=== PATIENT | female | born 1960 | race Caucasian/White ===

== ENCOUNTER → 2016-10-26 | Outpatient (CLI) | payer OTHER ==
--- NOTE | 2016-10-27 14:21 | MM ---
Reason for exam: screening (asymptomatic). Last mammogram was performed 1 year ago. History: Patient is postmenopausal. Family history of breast cancer in aunt and breast cancer in cousin. Took hormonal contraceptives for 2 years beginning at age 20. Physical Findings: A clinical breast exam by your physician is recommended on an annual basis and results should be correlated with mammographic findings. MG Screening Mammo w CAD Bilateral CC and MLO view(s) were taken. Prior study comparison: October 24, 2015, bilateral MG screening mammo w CAD. September 28, 2014, bilateral MG diagnostic mammo w CAD [place]. July 11, 2013, bilateral digital screening mammo w/CAD. January 18, 2012, bilateral digital screening mammo w/CAD. January 06, 2011, bilateral digital screening mammo w/CAD. The breast tissue is heterogeneously dense. This may lower the sensitivity of mammography. There is chronic nodularity in the left breast. No significant changes when compared with prior studies. ASSESSMENT: Negative, BI-RAD 1 RECOMMENDATION: Routine screening mammogram of both breasts in 1 year. Manage patient on a clinical basis with regard to medial right breast pain.
== END | disposition home or self-care (01) ==
LOC: RADMAMWWP 16:14
PROVIDERS: ATTEND Family Medicine
DX: Z12.31 Encounter for screening mammogram for malignant neoplasm of breast (principal)

== ENCOUNTER → 2018-08-26 | Outpatient (CLI) | payer OTHER ==
--- NOTE | 2018-08-29 09:19 | MM ---
Reason for exam: screening (asymptomatic). Last mammogram was performed 1 year and 10 months ago. History: Patient is postmenopausal. Family history of breast cancer in aunt and breast cancer in cousin. Took hormonal contraceptives for 2 years beginning at age 20. Physical Findings: A clinical breast exam by your physician is recommended on an annual basis and results should be correlated with mammographic findings. MG 3D Screening Mammo W/Cad Bilateral CC and MLO view(s) were taken. XCCL view(s) were taken of the left breast. Prior study comparison: October 26, 2016, bilateral MG screening mammo w CAD. October 24, 2015, bilateral MG screening mammo w CAD. The breast tissue is heterogeneously dense. This may lower the sensitivity of mammography. There is chronic nodularity bilaterally. There is no discrete abnormality. ASSESSMENT: Benign, BI-RAD 2 RECOMMENDATION: Routine screening mammogram of both breasts in 1 year.
== END | disposition home or self-care (01) ==
LOC: RADMAMWWP 10:07
PROVIDERS: ATTEND Family Medicine
DX: Z12.31 Encounter for screening mammogram for malignant neoplasm of breast (principal)
CPT/HCPCS: 77063; 77067

== ENCOUNTER → 2019-12-15 | Outpatient (CLI) | payer BC ==
--- NOTE | 2019-12-18 11:25 | MM ---
Reason for exam: screening (asymptomatic). Last mammogram was performed 1 year and 4 months ago. History: Patient is postmenopausal. Family history of breast cancer in aunt and breast cancer in cousin. Took hormonal contraceptives for 2 years beginning at age 20. Physical Findings: A clinical breast exam by your physician is recommended on an annual basis and results should be correlated with mammographic findings. MG 3D Screening Mammo W/Cad Bilateral CC and MLO view(s) were taken. XCCL view(s) were taken of the left breast. Prior study comparison: August 26, 2018, bilateral MG 3d screening mammo w/cad. October 26, 2016, bilateral MG screening mammo w CAD. The breast tissue is heterogeneously dense. This may lower the sensitivity of mammography. There is chronic nodularity in the left breast. No significant changes when compared with prior studies. ASSESSMENT: Negative, BI-RAD 1 RECOMMENDATION: Routine screening mammogram of both breasts in 1 year.
== END | disposition home or self-care (01) ==
LOC: RADMAMWWP 12:33
PROVIDERS: ATTEND Family Medicine
DX: Z12.31 Encounter for screening mammogram for malignant neoplasm of breast (principal)
CPT/HCPCS: 77063; 77067

== ENCOUNTER 2020-10-19 19:34 | Emergency (ER) | payer BC ==
[2020-10-19] MEDS ORDERED: SODIUM CHLORIDE 0.9% 1,000 ML IV STA ×2 (19:52→21:09)
[2020-10-19] MEDS ORDERED: ALBUTEROL HFA INHALER INHALATION STA (19:52)
--- NOTE | 2020-10-19 19:56 | ED ---
SOB HPI - General Chief Complaint: Shortness of Breath Stated Complaint: COVID+, SOB Time Seen by Provider: 10/19/20 19:37 Source: patient, RN notes reviewed Mode of arrival: wheelchair Limitations: no limitations - History of Present Illness Initial Comments: This is a 60-year-old female with a history of being diagnosed with COVID-19 of October 15 of this year. She states she had the first Moderna shot on the . She presents complains of shortness of breath cough fever decreased oral intake exertional dyspnea. Some dizziness. No nausea vomiting or diarrhea. She also has some burning in her ear she states. No other current complaints no other modifying factors she does have an inhaler she uses at home which is not helping MD Complaint: shortness of breath, cough - Related Data Home Medications Medication Instructions Recorded Confirmed Simvastatin [Zocor] 20 mg PO HS 03/16/14 10/19/20 Aspirin 81 mg PO DAILY 04/08/15 10/19/20 Ergocalciferol [Vitamin D2] 50,000 unit PO SUWE 04/08/15 10/19/20 ARIPiprazole [Abilify] 2 mg PO HS 10/19/20 10/19/20 Albuterol Sulfate [Ventolin HFA] 2 puff INHALATION RT-Q4H PRN 10/19/20 10/19/20 Cetirizine HCl 10 mg PO DAILY 10/19/20 10/19/20 FLUoxetine HCL 40 mg PO DAILY 10/19/20 10/19/20 Multivitamins, Thera [Multivitamin 1 tab PO DAILY 10/19/20 10/19/20 (formulary)] buPROPion XL [Wellbutrin Xl] 300 mg PO DAILY 10/19/20 10/19/20 predniSONE See Taper PO BID 10/19/20 10/19/20 Previous Rx's Medication Instructions Recorded Azithromycin [Zithromax Z-pack (6 250 mg PO DIRECTED 5 Days #6 tab 10/19/20 tabs)] Dexamethasone [Decadron] 6 mg PO DAILY #5 tablet 10/19/20 Allergies Allergy/AdvReac Type Severity Reaction Status Date / Time No Known Allergies Allergy Verified 10/19/20 20:26 Review of Systems ROS Statement: Those systems with pertinent positive or pertinent negative responses have been documented in the HPI. ROS Other: All systems not noted in ROS Statement are negative. Past Medical History Past Medical History: Chest Pain / Angina, Hyperlipidemia, Hypertension, Skin Disorder Additional Past Medical History / Comment(s): Alopecia. PSORIASIS. EPISODE OF DIZZYNESS, SHORTNESS OF BREATH, CHEST PRESSURE, NAUSEA 02/2015 - ADM TO [facility] FOR [facility]HAB MED[facility]. Covid 10/09 History of Any Multi-Drug Resistant Organisms: None Reported Past Surgical History: Hysterectomy, Orthopedic Surgery Additional Past Surgical History / Comment(s): SX TO REPAIR HIATAL HERNIA. LT LEG SX R/T SEVERE CUT. RT HAND GANGLION CYST EXC. Past Anesthesia/Blood Transfusion Reactions: No Reported Reaction Past Psychological History: Depression Smoking Status: Never smoker Past Alcohol Use History: Rare Past Drug Use History: None Reported - Past Family History Brother(s) Family Medical History: Cancer General Exam - General Exam Comments Initial Comments: This is a well-developed well-nourished awake alert oriented 3 female Limitations: no limitations General appearance: alert, anxious Head exam: Present: atraumatic, normocephalic, normal inspection Eye exam: Present: normal appearance, PERRL, EOMI. Absent: scleral icterus, conjunctival injection, periorbital swelling ENT exam: Present: mucous membranes dry Neck exam: Present: normal inspection, full ROM, other. Absent: tenderness, meningismus, lymphadenopathy Respiratory exam: Present: decreased breath sounds. Absent: respiratory distress, wheezes, rales, rhonchi, stridor Cardiovascular Exam: Present: normal rhythm, tachycardia (No surgery or bruits), normal heart sounds. Absent: systolic murmur, diastolic murmur, rubs, gallop, clicks GI/Abdominal exam: Present: soft, normal bowel sounds. Absent: distended, tenderness, guarding, rebound, rigid Extremities exam: Present: normal inspection, full ROM, normal capillary refill. Absent: tenderness, pedal edema, joint swelling, calf tenderness Back exam: Present: normal inspection Neurological exam: Present: alert, oriented X3, CN II-XII intact Psychiatric exam: Present: normal affect, normal mood Skin exam: Present: warm, dry, intact, normal color. Absent: rash Course Vital Signs 10/19/20 10/19/20 10/19/20 19:36 20:13 21:08 Temperature 99.9 F H Pulse Rate 114 H 102 H 104 H Respiratory 24 18 19 Rate Blood Pressure 133/85 139/88 O2 Sat by Pulse 92 L 94 L 94 L Oximetry Medical Decision Making - Medical Decision Making I did a long discussion with patient regarding the findings patient is covered positive she had a positive test done at Dr. Camp's office on the that her primary care doctor. The patient is maintaining her oxygenation is breathing better after the inhaler. We did discuss the antibibody infusion for COVID-19 and does meet the criteria for administration. She is agreed to do this she'll receive the infusion images started on appropriate medication. - Lab Data Result diagrams: 10/19/20 20:06 10/19/20 20:06 Lab Results 10/19/20 10/19/20 10/19/20 Range/Units 20:06 20:06 20:06 WBC 13.8 H (3.8-10.6) k/uL RBC 4.81 (3.80-5.40) m/uL Hgb 14.9 (11.4-16.0) gm/dL Hct 44.9 (34.0-46.0) % MCV 93.4 (80.0-100.0) fL MCH 30.9 (25.0-35.0) pg MCHC 33.1 (31.0-37.0) g/dL RDW 13.1 (11.5-15.5) % Plt Count 228 (150-450) k/uL MPV 8.0 Neutrophils % 85 % Lymphocytes % 9 % Monocytes % 4 % Eosinophils % 1 % Basophils % 1 % Neutrophils # 11.7 H (1.3-7.7) k/uL Lymphocytes # 1.2 (1.0-4.8) k/uL Monocytes # 0.5 (0-1.0) k/uL Eosinophils # 0.2 (0-0.7) k/uL Basophils # 0.1 (0-0.2) k/uL PT 10.4 (9.0-12.0) sec INR 1.0 (<1.2) APTT 21.6 L (22.0-30.0) sec D-Dimer 1.56 H (<0.60) mg/L FEU Sodium 134 L (137-145) mmol/L Potassium 4.3 (3.5-5.1) mmol/L Chloride 100 (98-107) mmol/L Carbon Dioxide 22 (22-30) mmol/L Anion Gap 12 mmol/L BUN 21 H (7-17) mg/dL Creatinine 1.29 H (0.52-1.04) mg/dL Est GFR (CKD-EPI)AfAm 53 (>60 ml/min/1.73 sqM) Est GFR (CKD-EPI)NonAf 46 (>60 ml/min/1.73 sqM) Glucose 153 H (74-99) mg/dL Plasma Lactic Acid Thiago (0.7-2.0) mmol/L Calcium 9.7 (8.4-10.2) mg/dL Magnesium 1.9 (1.6-2.3) mg/dL Total Bilirubin 0.5 (0.2-1.3) mg/dL AST 41 H (14-36) U/L ALT 29 (4-34) U/L Alkaline Phosphatase 123 (38-126) U/L Creatine Kinase 111 (30-135) U/L Troponin I (0.000-0.034) ng/mL NT-Pro-B Natriuret Pep pg/mL Total Protein 7.6 (6.3-8.2) g/dL Albumin 4.3 (3.5-5.0) g/dL 10/19/20 10/19/20 10/19/20 Range/Units 20:06 20:06 20:06 WBC (3.8-10.6) k/uL RBC (3.80-5.40) m/uL Hgb (11.4-16.0) gm/dL Hct (34.0-46.0) % MCV (80.0-100.0) fL MCH (25.0-35.0) pg MCHC (31.0-37.0) g/dL RDW (11.5-15.5) % Plt Count (150-450) k/uL MPV Neutrophils % % Lymphocytes % % Monocytes % % Eosinophils % % Basophils % % Neutrophils # (1.3-7.7) k/uL Lymphocytes # (1.0-4.8) k/uL Monocytes # (0-1.0) k/uL Eosinophils # (0-0.7) k/uL Basophils # (0-0.2) k/uL PT (9.0-12.0) sec INR (<1.2) APTT (22.0-30.0) sec D-Dimer (<0.60) mg/L FEU Sodium (137-145) mmol/L Potassium (3.5-5.1) mmol/L Chloride (98-107) mmol/L Carbon Dioxide (22-30) mmol/L Anion Gap mmol/L BUN (7-17) mg/dL Creatinine (0.52-1.04) mg/dL Est GFR (CKD-EPI)AfAm (>60 ml/min/1.73 sqM) Est GFR (CKD-EPI)NonAf (>60 ml/min/1.73 sqM) Glucose (74-99) mg/dL Plasma Lactic Acid Thiago 1.6 (0.7-2.0) mmol/L Calcium (8.4-10.2) mg/dL Magnesium (1.6-2.3) mg/dL Total Bilirubin (0.2-1.3) mg/dL AST (14-36) U/L ALT (4-34) U/L Alkaline Phosphatase (38-126) U/L Creatine Kinase (30-135) U/L Troponin I <0.012 (0.000-0.034) ng/mL NT-Pro-B Natriuret Pep 108 pg/mL Total Protein (6.3-8.2) g/dL Albumin (3.5-5.0) g/dL - EKG Data -: EKG Interpreted by Ca EKG shows normal: sinus rhythm EKG Comments: Sinus tachycardia rate 108. Interval 1:30 QRS duration 82 QT since QTC 360/423 nonspecific anterior configuration - Radiology Data Radiology results: report reviewed (Image reviewed no evidence of PE there is evidence of bilateral infiltrates consistent with bilateral pneumonia.), image reviewed Disposition Clinical Impression: Pneumonia due to COVID-19 virus, Febrile illness, acute, Dehydration, Bronchospasm Disposition: HOME SELF-CARE Condition: Good Instructions (If sedation given, give patient instructions): Viral Pneumonia (ED), Viral Syndrome (ED), Bronchospasm (ED) Additional Instructions: Using albuterol inhaler 2 puffs 4 times a day as needed Prescriptions: Dexamethasone [Decadron] 6 mg PO DAILY #5 tablet Azithromycin [Zithromax Z-pack (6 tabs)] 250 mg PO DIRECTED 5 Days #6 tab Is patient prescribed a controlled substance at d/c from ED?: No Referrals: Piedad Camp DO [Primary Care Provider] - 1-2 days
[2020-10-19 20:19] LABS: Basophils # (A) 0.1 k/uL (0-0.2); Basophils % (A) 1 %; Eosinophils # (A) 0.2 k/uL (0-0.7); Eosinophils % (A) 1 %; HCT 44.9 % (34.0-46.0); HGB 14.9 gm/dL (11.4-16.0); Lymphocytes # (A) 1.2 k/uL (1.0-4.8); Lymphocytes % (A) 9 %; MCH 30.9 pg (25.0-35.0); MCHC 33.1 g/dL (31.0-37.0); MCV 93.4 fL (80.0-100.0); Monocytes # (A) 0.5 k/uL (0-1.0); Monocytes % (A) 4 %; Neutrophils # (A) 11.7 k/uL (1.3-7.7); Neutrophils % (A) 85 %; Platelet Count 228 k/uL (150-450); RBC 4.81 m/uL (3.80-5.40); RDW 13.1 % (11.5-15.5); WBC 13.8 k/uL (3.8-10.6)
[2020-10-19 20:28] LABS: Albumin 4.3 g/dL (3.5-5.0); Calcium 9.7 mg/dL (8.4-10.2); Magnesium 1.9 mg/dL (1.6-2.3); Potassium 4.3 mmol/L (3.5-5.1); Total Bilirubin 0.5 mg/dL (0.2-1.3); Total Protein 7.6 g/dL (6.3-8.2)
--- NOTE | 2020-10-19 20:41 | XR ---
EXAMINATION TYPE: XR chest 2V DATE OF EXAM: 10/19/2020 COMPARISON: NONE HISTORY: Short of breath TECHNIQUE: 3 views FINDINGS: There is 5 cm area of airspace consolidation in the lateral aspect left lower lobe adjacent to the chest wall. There is 3 cm infiltrate in the lateral right upper lobe. There is no heart failu re. There is 3 cm area of consolidation in the right middle lobe close to the right cardiac border. H eart size is normal. There is no heart failure. There is slight elevated left diaphragm. IMPRESSION: Bilateral patches of airspace consolidation consistent with multifocal pneumonia. Normal heart.
[2020-10-19 20:44] LABS: Prothrombin Time 10.4 sec (9.0-12.0)
[2020-10-19 21:07] LABS: D-Dimer 1.56 mg/L FEU (<0.60)
[2020-10-19 21:08] LABS: Partial Thromboplastin Time 21.6 sec (22.0-30.0)
--- NOTE | 2020-10-19 21:38 | CT ---
EXAMINATION TYPE: CT angio chest DATE OF EXAM: 10/19/2020 COMPARISON: None HISTORY: Elevated d-dimer, +covid. CT DLP: 477 mGycm Automated exposure control for dose reduction was used. CONTRAST: Performed with IV Contrast, patient injected with 54ml mL of Isovue 370. There are 3-D post processed images. There is 3 cm patch of airspace infiltrate in the right upper lobe. There is poorly marginated 3 cm i nfiltrate in the left upper lobe adjacent to the mediastinum. There is 6 x 3 cm area of airspace cons olidation in the lateral aspect of the left upper lobe adjacent to the chest wall. There is airspace consolidation in the right lower lobe right paraspinal region. There is some patchy airspace consolid ation in the right middle lobe measuring up to 3 cm. There are smaller patches of airspace infiltrate at the posterior lung bases. There is no pleural effusion. Heart size is normal. There is no pericar dial effusion. There are a few bronchial lymph nodes up to 1 cm. Thoracic aorta is intact. There is no aneurysm. There is no dissection. There is normal contrast opacification of the pulmonary arteries. There are no filling defects. There is some spurring in the thoracic spine. I see no compression fracture. Upper abdominal soft tis sues appear intact. There is some fatty infiltration of the liver. IMPRESSION: No evidence of pulmonary embolism. Multifocal bilateral patchy pneumonia. Fatty infiltration of the liver.
[2020-10-19] MEDS ORDERED: AZITHROMYCIN 500 MG TAB PO STA (22:08)
[2020-10-19] MEDS ORDERED: dexAMETHasone 2 MG TAB PO STA (22:08)
[2020-10-19] MEDS ORDERED: SODIUM CHLORIDE 0.9% 50 ML IVPB ONE (22:15)
[2020-10-19] MEDS ORDERED: BAMLANIVIMAB (EUA) 700 MG, ETESEVIMAB (EUA) 1,400 MG in SODIUM CHLORIDE 0.9% 50 ML IVPB ONE (22:30)
[2020-10-19] MEDS ORDERED: ACETAMINOPHEN TAB 500 MG TAB PO STA (22:39)
[2020-10-20 00:29] VITALS: BP 113/61; PULSE 101; RESP 20; TEMP 99.2
== END 2020-10-20 00:20 | disposition home or self-care (01) ==
LOC: EC 19:34
DX: U07.1 COVID-19 (principal); J12.82 Pneumonia due to coronavirus disease 2019; E86.0 Dehydration; J98.01 Acute bronchospasm; E78.5 Hyperlipidemia, unspecified; I10 Essential (primary) hypertension; K76.0 Fatty (change of) liver, not elsewhere classified; Z79.52 Long term (current) use of systemic steroids; Z79.82 Long term (current) use of aspirin; Z79.899 Other long term (current) drug therapy
CPT/HCPCS: 36415; 94640; 93005; 85379; 83880; 80053; 82550; 83605; 83735; 84484; 85025; 85610; 85730; 87040; 71046; 71275; 99285; 96360; 96361; J8540; Q9967; Q0245

== ENCOUNTER → 2021-08-19 | Outpatient (CLI) | payer BC ==
--- NOTE | 2021-08-20 09:23 | MM ---
Reason for exam: screening (asymptomatic). Last mammogram was performed 1 year and 8 months ago. History: Patient is postmenopausal. Family history of breast cancer in aunt and breast cancer in cousin. Took hormonal contraceptives for 2 years beginning at age 20. Physical Findings: A clinical breast exam by your physician is recommended on an annual basis and results should be correlated with mammographic findings. MG 3D Screening Mammo W/Cad Bilateral CC and MLO view(s) were taken. Prior study comparison: December 15, 2019, bilateral MG 3d screening mammo w/cad. August 26, 2018, bilateral MG 3d screening mammo w/cad. The breast tissue is heterogeneously dense. This may lower the sensitivity of mammography. There is chronic nodularity in the left breast. No significant changes when compared with prior studies. ASSESSMENT: Benign, BI-RAD 2 RECOMMENDATION: Routine screening mammogram of both breasts in 1 year.
== END | disposition home or self-care (01) ==
LOC: RADMAMWWP 10:11
PROVIDERS: ATTEND Family Medicine
DX: Z12.31 Encounter for screening mammogram for malignant neoplasm of breast (principal); Z78.0 Asymptomatic menopausal state; Z80.3 Family history of malignant neoplasm of breast
CPT/HCPCS: 77063; 77067

== ENCOUNTER → 2021-10-28 | Outpatient (CLI) | payer BC ==
[2021-10-28 14:23] LABS: HCT 41.4 % (37.2-46.3); MCH 30.6 pg (27.0-32.0); MCHC 31.4 g/dL (32.0-37.0); MCV 97.4 fL (80.0-97.0); Mean Platelet Volume 10.7 fL (9.5-12.2); NRBC Per 100 WBC 0 /100 WBCS (0.0-0.0); Platelet Count 293 X 10*3/uL (140-440); RBC 4.25 X 10*6/uL (4.10-5.20); RDW 13.2 % (11.5-14.5); WBC 6.66 X 10*3/uL (4.50-10.00)
[2021-10-28 14:38] LABS: ALT 30 U/L (8-44); AST 27 U/L (13-35); African American GFR (CKD) 63.6 (60.0-200.0); Albumin 4.1 g/dL (3.8-4.9); Albumin/Globulin Ratio 1.46 (1.60-3.17); Alkaline Phosphatase 112 U/L (41-126); BUN/Creat Ratio 12.64 Ratio (12.00-20.00); Blood Urea Nitrogen 13.9 mg/dL (9.0-27.0); Calcium 9.4 mg/dL (8.7-10.3); Chloride 106 mmol/L (96-109); Chol/HDL Ratio 2.26 Ratio; Globulin 2.8 g/dL (1.6-3.3); Glucose 97 mg/dL (70-110); LDL Cholesterol,Calculated 68.1 mg/dL (0.0-131.0); Non-African American GFR(CKD) 54.9 (60.0-200.0); Potassium 4.2 mmol/L (3.5-5.5); Rheumatoid Factor, Qnt <10 IU/mL (0-15); Sodium 141 mmol/L (135-145); Total Protein 6.9 g/dL (6.2-8.2)
[2021-10-28 14:50] LABS: Erythrocyte Sedimentation Rate 20 mm/Hr (0-30)
== END | disposition home or self-care (01) ==
LOC: LABWHC1 09:32
PROVIDERS: ATTEND Physician Assistant Medical
DX: F32.9 Major depressive disorder, single episode, unspecified (principal); E78.5 Hyperlipidemia, unspecified; R73.01 Impaired fasting glucose; E66.9 Obesity, unspecified; L63.0 Alopecia (capitis) totalis
CPT/HCPCS: 36415; 80053; 80061; 83036; 84443; 85027; 85652; 86038; 86140; 86431

== ENCOUNTER → 2021-11-18 | Outpatient (CLI) | payer BC ==
--- NOTE | 2021-11-18 12:47 | FL ---
EXAMINATION TYPE: FL barium swallow w video DATE OF EXAM: 11/18/2021 CLINICAL HISTORY: 61-year-old female R1 3.10, dysphagia, persistent fluid sticking in the chest and r eflux. Patient status post hiatal hernia repair 2 years ago. TECHNIQUE: Deglutition study is performed utilizing thin liquid barium, nectar thick liquid barium, barium thick pudding, and barium coated cracker. COMPARISON: None. Total fluoroscopy time: 1 minute 22 seconds. Total images: None. Real-time fluoroscopy support was provided to speech pathology. FINDINGS: The oral and pharyngeal phases show satisfactory initiation and propagation with all modalities teste d. Normal mastication is seen with solid modalities tested. There is no evidence of penetration or aspiration with any modality tested. No significant pharyngeal residue was appreciated. Thin liquid and solid bolus was followed down to the thoracoabdominal junction. No sizable hiatal hernia seen. IMPRESSION: Normal deglutition study. Please refer to speech therapist notes for further details if necessary.
== END | disposition home or self-care (01) ==
LOC: RADFLMAIN 11:23
PROVIDERS: ATTEND Family Medicine
DX: R13.10 Dysphagia, unspecified (principal)
CPT/HCPCS: 74230

== ENCOUNTER → 2021-12-30 | Outpatient (CLI) | payer BC ==
--- NOTE | 2022-01-26 08:06 | P.SLEEP ---
History of Present Illness H&P Date: 12/30/21 This is a 61-year-old female patient who was referred to me for sleep apnea evaluation. The patient had recently a sleep attack where she fell as she was trying to get out of the bed early in the morning. She felt sleepy and drowsy and she fell asleepy , and she also sustained a slight head trauma. Based on that, the patient was referred to me. No seizure activity has been noted. No headaches. No altered mentation. The patient has been very much sleepy over the years and her condition is been progressively getting worse. Note that the patient has history of alopecia and she has been treated with steroids and following that she has gained around 70 pounds and the patient currently has features of chronic steroid use/cushingoid features. At the same time, the patient is having loud snoring, witnessed apneas as reported by the and Excessive fatigue and sleepiness during the day. She is waking up tired during the day. She is going to bed around 10 PM, waking up at 8 AM in the morning. She has no issues in initiating sleep. Her sleep is fragmented and she wakes up at least 3-4 times in the middle of the night. At times she uses the bathroom to urinate. No difficulties in reinitiating sleep. No sleep paralysis. No hallucinations. No cataplexy. She takes a nap at around 2 PM. She drinks 2 cups of coffee in the morning. This will help her stimulated. No symptoms of restlessness and lower extremities. No palpitation. No anxiety. No chest pain. As mentioned, she has chronic issues with alopecia and she has lost her hair. No alcoholism. No substance abuse. Review of Systems Constitutional: Reports daytime sleepiness, Reports fatigue, Reports weight gain Eyes: denies as per HPI, denies blurred vision, denies bulging eye, denies decreased vision, denies diplopia, denies discharge, denies dry eye, denies irritation, denies itching, denies pain, denies photophobia, denies loss of peripheral vision, denies loss of vision, denies tunnel vision/blind spots Ears: deny: decreased hearing, ear discharge, earache, tinnitus Ears, nose, mouth and throat: Reports as per HPI Breasts: absent: as per HPI, change in shape, gynecomastia, masses, nipple discharge, pain, skin changes, swelling Cardiovascular: Reports as per HPI Respiratory: Reports snoring Gastrointestinal: Reports as per HPI Genitourinary: Reports as per HPI Menstruation: Reports as per HPI Musculoskeletal: Reports as per HPI Musculoskeletal: absent: ankle pain, ankle stiffness, ankle swelling Integumentary: Reports as per HPI (Alopecia) Neurological: Reports as per HPI Psychiatric: Reports as per HPI Endocrine: Reports as per HPI, Reports fatigue Hematologic/Lymphatic: Reports as per HPI Allergic/Immunologic: Reports as per HPI Past Medical History Past Medical History: Chest Pain / Angina, Hyperlipidemia, Hypertension, Skin Disorder Additional Past Medical History / Comment(s): Alopecia. PSORIASIS. Obesity, hypertension, hyperlipidemia, acid reflux, Covid 19 in September 2020 History of Any Multi-Drug Resistant Organisms: None Reported Past Surgical History: Hysterectomy, Orthopedic Surgery Additional Past Surgical History / Comment(s): SX TO REPAIR HIATAL HERNIA. LT LEG SX R/T SEVERE CUT. RT HAND GANGLION CYST EXC. Past Anesthesia/Blood Transfusion Reactions: No Reported Reaction Past Psychological History: Depression Smoking Status: Never smoker Past Alcohol Use History: None Reported Past Drug Use History: None Reported - Past Family History Brother(s) Family Medical History: Cancer Medications and Allergies Home Medications Medication Instructions Recorded Confirmed Type Simvastatin [Zocor] 20 mg PO HS 03/16/14 12/31/21 History Aspirin 81 mg PO DAILY 04/08/15 12/31/21 History Ergocalciferol [Vitamin D2 50,000 unit PO SUWE 04/08/15 12/31/21 History (DRISDOL)] ARIPiprazole [Abilify] 2 mg PO HS 10/19/20 12/31/21 History Cetirizine HCl 10 mg PO DAILY 10/19/20 12/31/21 History FLUoxetine HCL 40 mg PO DAILY 10/19/20 12/31/21 History Multivitamins, Thera [Multivitamin 1 tab PO DAILY 10/19/20 12/31/21 History (formulary)] buPROPion XL [Wellbutrin XL] 300 mg PO DAILY 10/19/20 12/31/21 History Omeprazole 20 mg PO 12/29/21 History Allergies Allergy/AdvReac Type Severity Reaction Status Date / Time No Known Allergies Allergy Verified 12/31/21 09:55 Physical Exam BP is 176/84 with a pulse of 75 and a respiration of 18 and the temperature is 97.0 and oxygen saturations 95% on room air oxygen. Weight is 253, neck size is 18 inches and the patient has a Jeff score of 2 and a body mass index of 42. Gen. appearance the patient is obese, comfortable and the patient has cushingoid features. She is also demonstrating signs of alopecia. The patient appeared well nourished and normally developed. Vital signs as documented. Head exam is unremarkable. No scleral icterus or corneal arcus noted. Neck is without jugular venous distension, thyromegaly, or carotid bruits. The patient has a Mallampati class IV. The patient has a slight overbite. Carotid upstrokes are brisk bilaterally. Lungs are clear to auscultation and percussion. Cardiac exam reveals the PMI to be normally sized and situated. Rhythm is regular. First and second heart sounds normal. No murmurs, rubs or gallops. Abdominal exam reveals normal bowel sounds, no masses, no organomegaly and no aortic enlargement. Extremities are nonedematous and both femoral and pedal pulses are normal.Examination of the skin revealed no evidence of significant rashes, suspicious appearing nevi or other concerning lesions.Neurologically, the patient is awake and alert and the patient does not have any focal neurological deficit. Cranial nerves are essentially intact. Assessment and Plan Plan: Chronic hypersomnia with increased likelihood obstructive sleep apnea as the patient has loud snoring, sleep fragmentation, recent weight gain related to steroid use and on examination the patient has significant crowding of the posterior pharynx with a slight overbite. The patient has a Mallampati class IV. The patient accordingly will need further investigation. We'll set up this patient for a home sleep study testing Alopecia, history of chronic steroid use with cushingoid features Obesity with a body mass index of 42.4 Hypertension Hyperlipidemia Acid reflux Chronic anxiety Chronic depression Plan High likelihood for obstructive sleep apnea Proceed with a home sleep study Asked the patient to sleep on her side in the head of the bed elevated Maintain regular sleep schedule Avoid any sleep deprivation Abdomen the sleep hygiene measures We'll contact the patient back with the results of the sleep study and make further recommendations Weight loss is recommended. Sleep Note - Sleep Note Sleep Note: Temperature: Pulse Rate: Respiratory Rate: Blood Pressure: SpO2: Height: 5 ft 5 in Weight: 113.398 kg BMI: 41.5 Neck Circumference:
== END ==
LOC: SLEEP 13:29
PROVIDERS: ATTEND Internal Medicine Critical Care Medicine
DX: G47.10 Hypersomnia, unspecified (principal); L65.9 Nonscarring hair loss, unspecified; E66.9 Obesity, unspecified; Z68.41 Body mass index [BMI] 40.0-44.9, adult; I10 Essential (primary) hypertension; E78.5 Hyperlipidemia, unspecified; K21.9 Gastro-esophageal reflux disease without esophagitis; F32.A Depression, unspecified; F41.9 Anxiety disorder, unspecified
CPT/HCPCS: 99211

== ENCOUNTER 2021-12-31 09:22 | Day surgery (SDC) | payer BC ==
[2021-12-29 08:41] VITALS: BMI 41.5
--- NOTE | 2021-12-30 15:26 | P.SLEEP ---
History of Present Illness H&P Date: 12/30/21 This is a 61-year-old female patient who was referred to me for sleep apnea evaluation. The patient had recently a sleep attack where she fell as she was trying to get out of the bed early in the morning. She felt sleepy and drowsy and she fell asleepy , and she also sustained a slight head trauma. Based on that, the patient was referred to me. No seizure activity has been noted. No headaches. No altered mentation. The patient has been very much sleepy over the years and her condition is been progressively getting worse. Note that the patient has history of alopecia and she has been treated with steroids and following that she has gained around 70 pounds and the patient currently has features of chronic steroid use/cushingoid features. At the same time, the patient is having loud snoring, witnessed apneas as reported by the and Excessive fatigue and sleepiness during the day. She is waking up tired during the day. She is going to bed around 10 PM, waking up at 8 AM in the morning. She has no issues in initiating sleep. Her sleep is fragmented and she wakes up at least 3-4 times in the middle of the night. At times she uses the bathroom to urinate. No difficulties in reinitiating sleep. No sleep paralysis. No hallucinations. No cataplexy. She takes a nap at around 2 PM. She drinks 2 cups of coffee in the morning. This will help her stimulated. No symptoms of restlessness and lower extremities. No palpitation. No anxiety. No chest pain. As mentioned, she has chronic issues with alopecia and she has lost her hair. No alcoholism. No substance abuse. Review of Systems Constitutional: Reports daytime sleepiness, Reports fatigue, Reports weight gain Eyes: denies as per HPI, denies blurred vision, denies bulging eye, denies decreased vision, denies diplopia, denies discharge, denies dry eye, denies irritation, denies itching, denies pain, denies photophobia, denies loss of peripheral vision, denies loss of vision, denies tunnel vision/blind spots Ears: deny: decreased hearing, ear discharge, earache, tinnitus Ears, nose, mouth and throat: Reports as per HPI Breasts: absent: as per HPI, change in shape, gynecomastia, masses, nipple discharge, pain, skin changes, swelling Cardiovascular: Reports as per HPI Respiratory: Reports snoring Gastrointestinal: Reports as per HPI Genitourinary: Reports as per HPI Menstruation: Reports as per HPI Musculoskeletal: Reports as per HPI Musculoskeletal: absent: ankle pain, ankle stiffness, ankle swelling Integumentary: Reports as per HPI (Alopecia) Neurological: Reports as per HPI Psychiatric: Reports as per HPI Endocrine: Reports as per HPI, Reports fatigue Hematologic/Lymphatic: Reports as per HPI Allergic/Immunologic: Reports as per HPI Past Medical History Past Medical History: Chest Pain / Angina, Hyperlipidemia, Hypertension, Skin Disorder Additional Past Medical History / Comment(s): Alopecia. PSORIASIS. Obesity, hypertension, hyperlipidemia, acid reflux, Covid 19 in September 2020 History of Any Multi-Drug Resistant Organisms: None Reported Past Surgical History: Hysterectomy, Orthopedic Surgery Additional Past Surgical History / Comment(s): SX TO REPAIR HIATAL HERNIA. LT LEG SX R/T SEVERE CUT. RT HAND GANGLION CYST EXC. Past Anesthesia/Blood Transfusion Reactions: No Reported Reaction Past Psychological History: Depression Smoking Status: Never smoker Past Alcohol Use History: None Reported Past Drug Use History: None Reported - Past Family History Brother(s) Family Medical History: Cancer Medications and Allergies Home Medications Medication Instructions Recorded Confirmed Type Simvastatin [Zocor] 20 mg PO HS 03/16/14 12/29/21 History Aspirin 81 mg PO DAILY 04/08/15 12/29/21 History Ergocalciferol [Vitamin D2] 50,000 unit PO SUWE 04/08/15 12/29/21 History ARIPiprazole [Abilify] 2 mg PO HS 10/19/20 12/29/21 History Cetirizine HCl 10 mg PO DAILY 10/19/20 12/29/21 History FLUoxetine HCL 40 mg PO DAILY 10/19/20 12/29/21 History Multivitamins, Thera [Multivitamin 1 tab PO DAILY 10/19/20 12/29/21 History (formulary)] buPROPion XL [Wellbutrin Xl] 300 mg PO DAILY 10/19/20 12/29/21 History Omeprazole 20 mg PO 12/29/21 History Allergies Allergy/AdvReac Type Severity Reaction Status Date / Time No Known Allergies Allergy Verified 12/29/21 08:33 Physical Exam BP is 176/84 with a pulse of 75 and a respiration of 18 and the temperature is 97.0 and oxygen saturations 95% on room air oxygen. Weight is 253, neck size is 18 inches and the patient has a [place] score of 2 and a body mass index of 42. Gen. appearance the patient is obese, comfortable and the patient has cushingoid features. She is also demonstrating signs of alopecia. The patient appeared well nourished and normally developed. Vital signs as documented. Head exam is unremarkable. No scleral icterus or corneal arcus noted. Neck is without jugular venous distension, thyromegaly, or carotid bruits. The patient has a Mallampati class IV. The patient has a slight overbite. Carotid upstrokes are brisk bilaterally. Lungs are clear to auscultation and percussion. Cardiac exam reveals the PMI to be normally sized and situated. Rhythm is regular. First and second heart sounds normal. No murmurs, rubs or gallops. Abdominal exam reveals normal bowel sounds, no masses, no organomegaly and no aortic enlargement. Extremities are nonedematous and both femoral and pedal pulses are normal.Examination of the skin revealed no evidence of significant rashes, suspicious appearing nevi or other concerning lesions.Neurologically, the patient is awake and alert and the patient does not have any focal neurological deficit. Cranial nerves are essentially intact. Assessment and Plan Plan: Chronic hypersomnia with increased likelihood obstructive sleep apnea as the patient has loud snoring, sleep fragmentation, recent weight gain related to steroid use and on examination the patient has significant crowding of the posterior pharynx with a slight overbite. The patient has a Mallampati class IV. The patient accordingly will need further investigation. We'll set up this patient for a home sleep study testing Alopecia, history of chronic steroid use with cushingoid features Obesity with a body mass index of 42.4 Hypertension Hyperlipidemia Acid reflux Chronic anxiety Chronic depression Plan High likelihood for obstructive sleep apnea Proceed with a home sleep study Asked the patient to sleep on her side in the head of the bed elevated Maintain regular sleep schedule Avoid any sleep deprivation Abdomen the sleep hygiene measures We'll contact the patient back with the results of the sleep study and make further recommendations Weight loss is recommended. Sleep Note - Sleep Note Sleep Note: Temperature: Pulse Rate: Respiratory Rate: Blood Pressure: SpO2: Height: 5 ft 5 in Weight: 113.398 kg BMI: 41.5 Neck Circumference:
--- NOTE | 2021-12-31 07:42 | P.GSHP ---
History of Present Illness H&P Date: 12/31/21 CHIEF COMPLAINT: GERD HISTORY OF PRESENT ILLNESS: The patient is a 61-year-old female who presents reports gastroesophageal reflux disease. Upper endoscopy was offered for further evaluation and management. PAST MEDICAL HISTORY: Please see list. PAST SURGICAL HISTORY: Please see list. MEDICATIONS: Please see list. ALLERGIES: Please see list. SOCIAL HISTORY: No illicit drug use FAMILY HISTORY: No reports of Crohn disease or ulcerative colitis. REVIEW OF ORGAN SYSTEMS: CONSTITUTIONAL: No reports of fevers or chills. GI: Denies any blood in stools or constipation. PHYSICAL EXAM: VITAL SIGNS: Stable GENERAL: Well-developed and pleasant in no acute distress. HEENT: No scleral icterus. Extraocular movements grossly intact. Moist buccal mucosa. NECK: Supple without lymphadenopathy. CHEST: Unlabored respirations. Equal bilateral excursions. CARDIOVASCULAR: Regular rate and rhythm. Distal 2+ pulses. ABDOMEN: Soft, nondistended. MUSCULOSKELETAL: No clubbing, cyanosis, or edema. ASSESSMENT: 1. Gastroesophageal reflux disease PLAN: 1. Recommend proceeding with an upper endoscopy Past Medical History Past Medical History: Chest Pain / Angina, Hyperlipidemia, Hypertension, Skin Disorder Additional Past Medical History / Comment(s): Alopecia. PSORIASIS. Obesity, hypertension, hyperlipidemia, acid reflux, Covid 19 in September 2020 History of Any Multi-Drug Resistant Organisms: None Reported Past Surgical History: Hysterectomy, Orthopedic Surgery Additional Past Surgical History / Comment(s): SX TO REPAIR HIATAL HERNIA. LT LEG SX R/T SEVERE CUT. RT HAND GANGLION CYST EXC. Past Anesthesia/Blood Transfusion Reactions: No Reported Reaction Past Psychological History: Depression Smoking Status: Never smoker Past Alcohol Use History: None Reported Past Drug Use History: None Reported - Past Family History Brother(s) Family Medical History: Cancer Medications and Allergies Home Medications Medication Instructions Recorded Confirmed Type Simvastatin [Zocor] 20 mg PO HS 03/16/14 12/29/21 History Aspirin 81 mg PO DAILY 04/08/15 12/29/21 History Ergocalciferol [Vitamin D2] 50,000 unit PO SUWE 04/08/15 12/29/21 History ARIPiprazole [Abilify] 2 mg PO HS 10/19/20 12/29/21 History Cetirizine HCl 10 mg PO DAILY 10/19/20 12/29/21 History FLUoxetine HCL 40 mg PO DAILY 10/19/20 12/29/21 History Multivitamins, Thera [Multivitamin 1 tab PO DAILY 10/19/20 12/29/21 History (formulary)] buPROPion XL [Wellbutrin Xl] 300 mg PO DAILY 10/19/20 12/29/21 History Omeprazole 20 mg PO 12/29/21 History Allergies Allergy/AdvReac Type Severity Reaction Status Date / Time No Known Allergies Allergy Verified 12/29/21 08:33
[~2021-12-31 09:22] MED LIST: LACTATED RINGERS 1,000 ML IV SCH
[2021-12-31 09:55] VITALS: RESP 16; TEMP 97
[2021-12-31] MEDS ORDERED: KETAMINE 10 MG/ML 20 ML VIAL ONE (10:19)
[2021-12-31] MEDS ORDERED: PROPOFOL 10 MG/ML 20 ML VIAL IV ONE (10:19)
[2021-12-31] MEDS ORDERED: LIDOCAINE 2% INJ 20 MG/ML (2 ML VIAL) ONE (10:19)
[2021-12-31] MEDS ORDERED: GLYCOPYRROLATE 0.2 MG/ML 2 ML VIAL ONE (10:19)
--- NOTE | 2021-12-31 10:49 | P.PCN ---
Date of Procedure: 12/31/21 Description of Procedure: PREOPERATIVE DIAGNOSIS: Gastroesophageal reflux disease Dysphagia History of Brayden fundoplasty POSTOPERATIVE DIAGNOSIS: Lower esophageal stenosis Gastroesophageal reflux disease Dysphagia History of Brayden fundoplasty OPERATION: Esophagogastroduodenoscopy with rigid dilator over the guidewire 57 Fr with dilation Esophagogastroduodenoscopy with cold forceps biopsies stomach/antrum SURGEON: Dee Dee Hayes MD ANESTHESIA: MAC. INDICATIONS: The patient is a 61-year-old female who presents with a history of gastroesophageal reflux disease with dysphagia. Benefits and risks of the procedure were described. Informed consent was obtained. DESCRIPTION: The patient was brought into the endoscopy suite and laid in the left lateral decubitus position. After a timeout was confirmed, the procedure was initiated. An Olympus gastroscope was passed into the posterior oropharynx where an upper esophageal stenosis was identified. The scope was passed down to the distal esophagus. To address the upper esophageal stenosis, rigid dilator over guidewire was selected. Next using an Monegasque rigid dilator, a guidewire was placed through the gastroscope. Next the scope was withdrawn. A 57-Vietnamese rigid Monegasque dilator was passed carefully along the posterior oropharynx to 36 cm and left in place for 2-3 minutes stretch. The dilator was withdrawn including the guidewire. The scope was reentered along the posterior oropharynx with no findings of full- thickness tear of the upper esophageal sphincter. Additional findings below. Within the stomach, the body of the stomach with cold forceps biopsies obtained. The large esophageal valve was evaluated with Hill grade 2 lower esophageal valve. LA grade A erosive esophagitis was identified. No large recurrent hernia identified. No full-thickness injury was encountered. The GI tract was desufflated. The pa tient tolerated the procedure well. FINDINGS: Lower esophageal stenosis dilated 57-Vietnamese rigid dilator Diaphragmatic hiatus at 36 cm from the incisors Squamocolumnar junction 36 cm from the incisors. Gastric body and fundus cold forceps biopsies obtained Duodenum with cold biopsy forceps obtained LA grade A erosive esophagitis Hill grade 2 lower esophageal valve. No large recurrent hiatal hernia RECOMMENDATIONS: Upper endoscopy as needed Plan - Discharge Summary Discharge Rx Participant: No New Discharge Prescriptions: Continue Simvastatin [Zocor] 20 mg PO HS Ergocalciferol [Vitamin D2 (DRISDOL)] 50,000 unit PO SUWE Aspirin 81 mg PO DAILY buPROPion XL [Wellbutrin XL] 300 mg PO DAILY ARIPiprazole [Abilify] 2 mg PO HS FLUoxetine HCL 40 mg PO DAILY Cetirizine HCl 10 mg PO DAILY Multivitamins, Thera [Multivitamin (formulary)] 1 tab PO DAILY Omeprazole 20 mg PO Discharge Medication List Simvastatin [Zocor] 20 mg PO HS 03/16/14 [History] Aspirin 81 mg PO DAILY 04/08/15 [History] Ergocalciferol [Vitamin D2 (DRISDOL)] 50,000 unit PO SUWE 04/08/15 [History] ARIPiprazole [Abilify] 2 mg PO HS 10/19/20 [History] Cetirizine HCl 10 mg PO DAILY 10/19/20 [History] FLUoxetine HCL 40 mg PO DAILY 10/19/20 [History] Multivitamins, Thera [Multivitamin (formulary)] 1 tab PO DAILY 10/19/20 [History] buPROPion XL [Wellbutrin XL] 300 mg PO DAILY 10/19/20 [History] Omeprazole 20 mg PO 12/29/21 [History] Follow up Appointment(s)/Referral(s): Dee Dee Hayes MD [STAFF PHYSICIAN] - 01/13/22 Patient Instructions/Handouts: Esophageal Dilation (GEN) Activity/Diet/Wound Care/Special Instructions: Diet as tolerated Discharge Disposition: HOME SELF-CARE
[2021-12-31 11:06] VITALS: BP 158/67; PULSE 98
== END 2021-12-31 11:32 | disposition home or self-care (01) ==
LOC: ORWHC2ENDO 09:22
PROVIDERS: ATTEND Surgery Plastic and Reconstructive Surgery
DX: K22.2 Esophageal obstruction (principal); K29.50 Unspecified chronic gastritis without bleeding; K21.00 Gastro-esophageal reflux disease with esophagitis, without bleeding; Z98.890 Other specified postprocedural states; Z87.19 Personal history of other diseases of the digestive system; I25.119 Atherosclerotic heart disease of native coronary artery with unspecified angina pectoris; E78.5 Hyperlipidemia, unspecified; I10 Essential (primary) hypertension; E66.9 Obesity, unspecified; Z68.41 Body mass index [BMI] 40.0-44.9, adult; Z86.16 Personal history of COVID-19; Z79.899 Other long term (current) drug therapy; Z79.82 Long term (current) use of aspirin; Z80.9 Family history of malignant neoplasm, unspecified
CPT/HCPCS: 88305; 43239; 43249; J2704; J2001

== ENCOUNTER → 2022-07-07 | Outpatient (CLI) | payer BC ==
--- NOTE | 2022-07-07 15:25 | P.PN ---
Progress Note - Text Progress Note Date: 07/07/22 This is a 61-year-old female patient is being seen in follow-up regarding obstructive sleep apnea. The patient was diagnosed having severe LAURENT with an AHI of 32 and the patient was symptomatically the patient was given a CPAP titration the patient was started on CPAP at a pressure of 12 cm of water. The patient is currently using her CPAP and she is seeing significant benefit and she reports improvement in his sleep quality. Her treatment has been successful. I checked the compliance data and based on elevated has been collected between 06/07/2022 and 07/06/2022, the patient has utilized the machine every night without any interruption and she has used the machine more than 4 hours 90% of the time. The patient has been averaging about 4 hours and 30 minutes of CPAP use per night at a pressure of 12 cm of water. The patient's AHI is down to 1.7. The leak is in order of 12 L/m. The patient is morbidly obese. Her weight has remained stable at 255 pounds. The Chatsworth score is down to 8. No major hypersomnia or sleepiness during the day. No headaches. No cardiac arrhythmias. No chest pain. No heartburn. BP is 139/84 with a pulse of 96 and a respiration of 16 and the patient's weight is 255 pounds with a temperature of 96.6 and the patient has an Chatsworth score of 8 The patient appeared well nourished and normally developed. Vital signs as documented. Head exam is unremarkable. No scleral icterus or corneal arcus noted. Neck is without jugular venous distension, thyromegaly, or carotid bruits. Carotid upstrokes are brisk bilaterally. Lungs are clear to auscultation and percussion. Cardiac exam reveals the PMI to be normally sized and situated. Rhythm is regular. First and second heart sounds normal. No murmurs, rubs or gallops. Abdominal exam reveals normal bowel sounds, no masses, no organomegaly and no aortic enlargement. Extremities are nonedematous and both femoral and pedal pulses are normal.Examination of the skin revealed no evidence of significant rashes, suspicious appearing nevi or other concerning lesions.Neurologically, the patient is awake and alert and the patient does not have any focal neurological deficit. Cranial nerves are essentially intact. Assessment Severe symptomatic LAURENT with an AHI of 32. The patient underwent successful CPAP therapy at a pressure of 12 cm of water. Chronic hypersomnia secondary to obstructive sleep apnea, improved with CPAP therapy Morbid obesity with a BMI of 42 Hypertension Hyperlipidemia Chronic anxietydepression Acid reflux Plan Encourage weight loss Continue CPAP therapy at the same level of pressure Increase the starting pressure up to 6 and continue within 30 minutes ramp time Continue using the full facemask Simplus small size Optimize sleep hygiene measures Back in the office in one year's time. The patient is benefiting from the treatment and the patient is very compliant.
== END ==
LOC: SLEEP 14:46
PROVIDERS: ATTEND Internal Medicine Critical Care Medicine
DX: G47.33 Obstructive sleep apnea (adult) (pediatric) (principal); E66.01 Morbid (severe) obesity due to excess calories; Z68.41 Body mass index [BMI] 40.0-44.9, adult; E78.5 Hyperlipidemia, unspecified; I10 Essential (primary) hypertension; K21.9 Gastro-esophageal reflux disease without esophagitis; Z99.89 Dependence on other enabling machines and devices
CPT/HCPCS: 99212

== ENCOUNTER → 2022-09-17 | Outpatient (CLI) | payer BC ==
--- NOTE | 2022-09-18 08:28 | MM ---
Reason for Exam: Screening (asymptomatic). Last screening mammogram was performed 12 month(s) ago. Patient History: Menarche at age 12. First Full-Term at age 20. Left ovary removed at age 39. Hysterectomy at age 39. Postmenopausal. Hormonal Contraceptives for 2 years from age 20 until age 22. Maternal cousin had breast cancer, age 54. Maternal aunt had breast cancer, age 54. Risk Values: Ailin 5 year model risk: 1.1%. NCI Lifetime model risk: 6.0%. Prior Study Comparison: 08/26/2018 Bilateral Screening Mammogram, [facility]. 12/15/2019 Bilateral Screening Mammogram, [facility]. 08/19/2021 Bilateral Screening Mammogram, [facility]. Tissue Density: The breast tissue is heterogeneously dense. This may lower the sensitivity of mammography. Findings: Analyzed By CAD. Benign-appearing bilateral axillary lymph nodes are redemonstrated. There are stable few small well-circumscribed masses on background dense tissue bilaterally. There is no suspicious new group of microcalcifications or new suspicious or enlarging mass in either breast. Overall Assessment: Benign, BI-RAD 2 Management: Screening Mammogram of both breasts in 1 year. A clinical breast exam by your physician is recommended on an annual basis and results should be correlated with mammographic findings. Electronically signed and approved by: Jah Schmitz M.D.
== END | disposition home or self-care (01) ==
LOC: RADMAMWWP 11:08
PROVIDERS: ATTEND Family Medicine
DX: Z12.31 Encounter for screening mammogram for malignant neoplasm of breast (principal); Z80.3 Family history of malignant neoplasm of breast; Z78.0 Asymptomatic menopausal state
CPT/HCPCS: 77063; 77067

== ENCOUNTER → 2023-04-13 | Outpatient (CLI) | payer BC ==
--- NOTE | 2023-04-13 09:32 | US ---
EXAMINATION TYPE: US gallbladder DATE OF EXAM: 04/13/2023 COMPARISON: NONE CLINICAL INDICATION: Female, 62 years old with history of R10.11 RIGHT UPPER QUADRANT PAIN; Abd pain, large habitus TECHNIQUE: Multiple sonographic images of the right upper quadrant are obtained. FINDINGS: EXAM MEASUREMENTS: Liver Length: 18.8 cm Gallbladder Wall: 0.2 cm CBD: 0.6 cm Right Kidney: 9.1 x 3.9 x 3.8 cm PREPARATION CENTER COORDINATOR NOTES:habitus and bowel gas limits exam Pancreas: portions seen appear wnl Liver: difficult to penetrate, upper limites of normal for size Gallbladder: wnl Evidence for sonographic Vega's sign: no CBD: wnl Right Kidney: wnl IMPRESSION: 1. Hepatic steatosis. 2. No evidence for acute process.
== END | disposition home or self-care (01) ==
LOC: RADUSWWP 08:19
PROVIDERS: ATTEND Surgery Plastic and Reconstructive Surgery
DX: K76.0 Fatty (change of) liver, not elsewhere classified (principal); R10.11 Right upper quadrant pain
CPT/HCPCS: 76705

== ENCOUNTER → 2023-04-15 | Outpatient (CLI) | payer BC ==
--- NOTE | 2023-04-15 15:16 | NM ---
EXAMINATION TYPE: NM hepatobiliary w EF DATE OF EXAM: 04/15/2023 COMPARISON: Gallbladder ultrasound 04/13/2023 CLINICAL INDICATION: Female, 62 years old with history of R10.11 RUQ PAIN; TECHNIQUE: After the intravenous administration of 4.8 mCi Tc 99m Mebrofenin hepatobiliary scintigrap hy is performed. Immediate images post injection. FINDINGS: There is satisfactory initial accumulation of tracer by the liver. The gallbladder is visualized wit hin 34 minutes. The small bowel activity is noted within 6 minutes. At one hour 8 ounces of oral en sure plus is given to mimic CCK and gallbladder ejection fraction is calculated at 80 %, in the jared l range. Therefore there is no scintigraphic evidence of cystic or common bile duct obstruction to s uggest acute cholecystitis or gallbladder dyskinesia. IMPRESSION: Exam is within normal limits.
== END | disposition home or self-care (01) ==
LOC: RADNMMAIN 12:46
PROVIDERS: ATTEND Surgery Plastic and Reconstructive Surgery
DX: R10.11 Right upper quadrant pain (principal)
CPT/HCPCS: 78226; A9537

== ENCOUNTER 2023-04-28 08:18 | Day surgery (SDC) | payer BC ==
[2023-04-26 09:46] VITALS: BMI 43.7
--- NOTE | 2023-04-28 08:13 | P.GSHP ---
History of Present Illness H&P Date: 04/28/23 CHIEF COMPLAINT: GERD and colon screen HISTORY OF PRESENT ILLNESS: The patient is a 62-year-old female who presents with gastroesophageal reflux disease and need for colon screen. Upper and lower endoscopy were offered for further evaluation and management. PAST MEDICAL HISTORY: Please see list. PAST SURGICAL HISTORY: Please see list. MEDICATIONS: Please see list. ALLERGIES: Please see list. SOCIAL HISTORY: No illicit drug use FAMILY HISTORY: No reports of Crohn disease or ulcerative colitis. REVIEW OF ORGAN SYSTEMS: CONSTITUTIONAL: No reports of fevers or chills. GI: Denies any blood in stools or constipation. PHYSICAL EXAM: VITAL SIGNS: Stable GENERAL: Well-developed pleasant in no acute distress. HEENT: No scleral icterus. Extraocular movements grossly intact. Moist buccal mucosa. NECK: Supple without lymphadenopathy. CHEST: Unlabored respirations. Equal bilateral excursions. CARDIOVASCULAR: Regular rate and rhythm. Distal 2+ pulses. ABDOMEN: Soft, nondistended. MUSCULOSKELETAL: No clubbing, cyanosis, or edema. ASSESSMENT: 1. Gastroesophageal reflux disease 2. Colon screen. PLAN: 1. Recommend proceeding with an upper and lower endoscopy Past Medical History Past Medical History: Chest Pain / Angina, Hyperlipidemia, Hypertension, Skin Disorder Additional Past Medical History / Comment(s): Alopecia. PSORIASIS. EPISODE OF DIZZYNESS, SHORTNESS OF BREATH, CHEST PRESSURE, NAUSEA 02/2015 - ADM TO [facility]. Covid 10/09 History of Any Multi-Drug Resistant Organisms: None Reported Past Surgical History: Hysterectomy, Orthopedic Surgery Additional Past Surgical History / Comment(s): SX TO REPAIR HIATAL HERNIA. LT LEG SX R/T SEVERE CUT. RT HAND GANGLION CYST EXC. Past Anesthesia/Blood Transfusion Reactions: No Reported Reaction Additional Past Anesthesia/Blood Transfusion Reaction / Comment(s): no blood transfusion Smoking Status: Never smoker - Past Family History Brother(s) Family Medical History: Cancer Additional Family Medical History / Comment(s): liver, also had brother with colon cancer Medications and Allergies Home Medications Medication Instructions Recorded Confirmed Type Simvastatin [Zocor] 20 mg PO HS 03/16/14 04/26/23 History Aspirin 81 mg PO DAILY 04/08/15 04/26/23 History Ergocalciferol [Vitamin D2 50,000 unit PO SUWE 04/08/15 04/26/23 History (DRISDOL)] ARIPiprazole [Abilify] 2 mg PO HS 10/19/20 04/26/23 History Cetirizine HCl 10 mg PO DAILY 10/19/20 04/26/23 History FLUoxetine HCL 40 mg PO DAILY 10/19/20 04/26/23 History buPROPion XL [Wellbutrin XL] 300 mg PO DAILY 10/19/20 04/26/23 History Allergies Allergy/AdvReac Type Severity Reaction Status Date / Time No Known Allergies Allergy Verified 12/31/21 09:55
[~2023-04-28 08:18] MED LIST changes: +LIDOCAINE 1% (10MG/ML) FOR IV START INTRADERMA PRN
[2023-04-28 09:25] VITALS: RESP 16; TEMP 96
[2023-04-28] MEDS ORDERED: PROPOFOL 10 MG/ML 20 ML VIAL IV ONE (09:29)
[2023-04-28] MEDS ORDERED: LIDOCAINE 1% INJ 10MG/ML (20 ML MDV) ONE (09:29)
--- NOTE | 2023-04-28 10:45 | P.PCN ---
Date of Procedure: 04/28/23 Description of Procedure: PREOPERATIVE DIAGNOSIS: Gastroesophageal reflux disease. Gastritis Morbid obesity. Dysphagia POSTOPERATIVE DIAGNOSIS: Gastroesophageal reflux disease with erosive esophagitis Morbid obesity. Gastritis with bleeding Acute gastric ulcer Duodenitis Upper esophageal stenosis OPERATION: Esophagogastroduodenoscopy with rigid dilator, 54-Bolivian Esophagogastroduodenoscopy with biopsies along the esophagus, antrum and duodenum SURGEON: Dee Dee Hayes MD ANESTHESIA: MAC. INDICATIONS: The patient is a 62-year-old female who presents with reflux disease. Benefits and risks of the procedure were described. Informed consent was obtained. DESCRIPTION: The patient was brought into the endoscopy suite and laid in the left lateral decubitus position. An Olympus gastroscope was passed along the posterior oropharynx down to the distal esophagus where the squamocolumnar junction was encountered at 36 cm from the incisors. The stomach was entered and bile reflux was found. Upper esophageal stenosis was identified. Guidewire was placed. Scope was removed. 54-Bolivian dilator was placed at 45 cm from the incisors to address upper esophageal stenosis. Guidewire and bougie were removed. Upper endoscope was reinserted. Additional findings are listed below. Biopsies with cold forceps were obtained of the antrum. The first through third portion of the duodenum was examined. Retroflexion of the scope confirmed Hill grade 2 lower esophageal valve. The squamocolumnar junction demonstrated LA grade B erosive esophagitis. The stomach was desufflated. The patient tolerated the procedure well. FINDINGS: Squamocolumnar junction 38 cm from the incisors. Diaphragmatic hiatus at 38 cm. Hill grade 2 lower esophageal valve. LA grade B erosive esophagitis, biopsies obtained Acute gastric ulcer antrum, biopsies Gastritis with bleeding Duodenitis biopsies obtained Dilation of upper esophageal stenosis, 54-Bolivian RECOMMENDATIONS: Upper endoscopy as needed. Start omeprazole and Carafate for ulcers and gastritis
--- NOTE | 2023-04-28 10:54 | P.PCN ---
Date of Procedure: 04/28/23 Description of Procedure: PREOPERATIVE DIAGNOSIS: Colitis POSTOPERATIVE DIAGNOSIS: Colitis OPERATION: Colonoscopy with random cold forceps biopsies Colonoscopy to the cecum, ileocecal valve and appendiceal orifice. SURGEON: Dee Dee Hayes MD. ANESTHESIA: MAC. INDICATIONS: The patient is a 62-year-old female who presents with change in bowel habits. Benefits and risks were described and informed consent was obtained. DESCRIPTION OF PROCEDURE: The patient had undergone Sutab prep. The patient had been brought into the operating room and laid in the left lateral decubitus position. After adequate intravenous sedation, the rectum was examined with 2% lidocaine jelly. No external hemorrhoids were encountered. The rectal tone was within normal limits. No lesions were palpated in the rectal vault. An Olympus colonoscope was advanced until the cecum, ileocecal valve and appendiceal orifice were clearly viewed. The prep was fair. Scattered diverticulosis was encountered. No colonic polyps were found. Random biopsies were obtained for colitis Retroflexion of the scope demonstrated grade 1 internal hemorrhoids without active bleeding or inflammation. The colon was desufflated. The patient had tolerated the procedure well. Withdrawal time was over 6 minutes. FINDINGS: Aronchick preparation quality scale 2+(1-5) Internal hemorrhoids, grade 1 No external prolapsed hemorrhoids. No arteriovenous malformations. No adenomatous polyps. Scattered diverticulosis Random biopsies were obtained for colitis, microscopic RECOMMENDATIONS: Lower endoscopy in 5 years, 2027 Plan - Discharge Summary Discharge Rx Participant: No New Discharge Prescriptions: New Sucralfate [Carafate] 1 gm PO BID #30 tablet Omeprazole [PriLOSEC] 40 mg PO DAILY #14 cap Continue Simvastatin [Zocor] 20 mg PO HS Ergocalciferol [Vitamin D2 (DRISDOL)] 50,000 unit PO SUWE Aspirin 81 mg PO DAILY buPROPion XL [Wellbutrin XL] 300 mg PO DAILY ARIPiprazole [Abilify] 2 mg PO HS FLUoxetine HCL 40 mg PO DAILY Cetirizine HCl 10 mg PO DAILY Cholestyramine (with Sugar) [Cholestyramine Powder] 1 packet PO DAILY Discharge Medication List Simvastatin [Zocor] 20 mg PO HS 03/16/14 [History] Aspirin 81 mg PO DAILY 04/08/15 [History] Ergocalciferol [Vitamin D2 (DRISDOL)] 50,000 unit PO SUWE 04/08/15 [History] ARIPiprazole [Abilify] 2 mg PO HS 10/19/20 [History] Cetirizine HCl 10 mg PO DAILY 10/19/20 [History] FLUoxetine HCL 40 mg PO DAILY 10/19/20 [History] buPROPion XL [Wellbutrin XL] 300 mg PO DAILY 10/19/20 [History] Cholestyramine (with Sugar) [Cholestyramine Powder] 1 packet PO DAILY 04/28/23 [History] Omeprazole [PriLOSEC] 40 mg PO DAILY #14 cap 04/28/23 [Rx] Sucralfate [Carafate] 1 gm PO BID #30 tablet 04/28/23 [Rx] Follow up Appointment(s)/Referral(s): Dee Dee Hayes MD [STAFF PHYSICIAN] - 05/25/23 3:30 pm Patient Instructions/Handouts: *Surgery [facility] - (Anesthesia) Discharge Instructions Outpatient Surgery, Diet for Stomach Ulcers and Gastritis (ED), Duodenitis (DC), Esophageal Dilation (DC) Activity/Diet/Wound Care/Special Instructions: Repeat colonoscopy 5 years, 2027 Discharge Disposition: HOME SELF-CARE
[2023-04-28 11:05] VITALS: PULSE 77
[2023-04-28 11:30] VITALS: BP 95/69
== END 2023-04-28 11:41 | disposition home or self-care (01) ==
LOC: ORWHC2ENDO 08:18
PROVIDERS: ATTEND Surgery Plastic and Reconstructive Surgery
DX: K29.80 Duodenitis without bleeding (principal); K31.89 Other diseases of stomach and duodenum; K21.00 Gastro-esophageal reflux disease with esophagitis, without bleeding; K29.70 Gastritis, unspecified, without bleeding; K25.3 Acute gastric ulcer without hemorrhage or perforation; K22.2 Esophageal obstruction; F32.A Depression, unspecified; K52.9 Noninfective gastroenteritis and colitis, unspecified; I10 Essential (primary) hypertension; E78.5 Hyperlipidemia, unspecified; I20.9 Angina pectoris, unspecified; Z90.710 Acquired absence of both cervix and uterus; Z98.890 Other specified postprocedural states; Z79.82 Long term (current) use of aspirin; Z79.899 Other long term (current) drug therapy
CPT/HCPCS: 88305; 45380; 43239; 43248; J2001; J2704

== ENCOUNTER → 2023-06-16 | Outpatient (CLI) | payer BC ==
--- NOTE | 2023-06-17 08:51 | MR ---
EXAMINATION TYPE: MR brain wo con DATE OF EXAM: 06/16/2023 1:03 PM CLINICAL INDICATION:Female, 62 years old with history of H57.89 OTHER SPECIFIED DISORDERS OF EYE AND ADNEXA; PHH, Rt eye drooping COMPARISON: 01/06/2021. TECHNIQUE: Multi planar, multi sequence imaging was performed through the brain including: T1, T2, In version recovery, Diffusion weighted imaging, and gradient echo imaging. No gadolinium was given. FINDINGS: The bacon-white junctions, ventricular system, basal cisterns appear unremarkable. The third Cranial n erves bilaterally are symmetric. No evidence for mass. Midline structures show no abnormality. Diffus ion-weighted imaging shows no evidence of restricted diffusion. The susceptibility weighted images do not reveal any evidence for micro-hemorrhage. The bone marrow signal is within normal limits. Paranasal sinuses and mastoid air cells: Trace bilateral mastoid air cell effusions right greater jair n left. Mild paranasal sinus disease most proximal maxillary sinuses. Visualized orbits: Orbital contents are intact. IMPRESSION: 1. No evidence of intracranial mass or acute/subacute infarct. The third Cranial nerves bilaterally a re symmetric. No evidence for mass. 2. Trace bilateral mastoid air cell effusions.
== END | disposition home or self-care (01) ==
LOC: RADMRIMAIN 12:36
PROVIDERS: ATTEND Family Medicine
DX: H74.8X3 Other specified disorders of middle ear and mastoid, bilateral (principal); H57.89 Other specified disorders of eye and adnexa; H53.9 Unspecified visual disturbance; H02.401 Unspecified ptosis of right eyelid
CPT/HCPCS: 70551

== ENCOUNTER → 2023-09-20 | Outpatient (CLI) | payer BC ==
--- NOTE | 2023-09-21 08:44 | MM ---
Reason for Exam: Screening (asymptomatic). Last mammogram was performed 1 year(s) and 1 month(s) ago. Patient History: Menarche at age 12. First Full-Term at age 20. Left ovary removed at age 39. Right ovary removed at age 39. Hysterectomy at age 24. Postmenopausal. Hormonal Contraceptives for 2 years from age 20 until age 22. Maternal cousin had breast cancer, age 54. Maternal aunt had breast cancer, age 54. Maternal cousin had breast cancer at or over age 50. Risk Values: Ailin 5 year model risk: 1.2%. NCI Lifetime model risk: 5.7%. Prior Study Comparison: 10/26/2016 Bilateral Screening Mammogram, [facility]. 08/26/2018 Bilateral Screening Mammogram, [facility]. 12/15/2019 Bilateral Screening Mammogram, [facility]. 08/19/2021 Bilateral Screening Mammogram, [facility]. 09/17/2022 Bilateral MG 3D screening mammo w/cad, [facility]. Tissue Density: The breasts are heterogeneously dense, which may obscure small masses. Findings: Analyzed By CAD. There is no suspicious group of microcalcifications or new suspicious mass in either breast. Stable postoperative distortion left breast. Overall Assessment: Benign, BI-RAD 2 Management: Screening Mammogram of both breasts in 1 year. . Patient should continue monthly self-breast exams. A clinical breast exam by your physician is recommended on an annual basis. This exam should not preclude additional follow-up of suspicious palpable abnormalities. Note on Ailin scores and lifetime risk: 1. A Ailin score greater than 3% is considered moderate risk. If this is the case, consider specialist referral to assess eligibility for a risk reducing agent. 2. If overall lifetime risk for the development of breast cancer is 20% or higher, the patient may qualify for future screening with alternating mammogram and breast MRI. Electronically signed and approved by: Xavier Santillan M.D. Radiologis
== END | disposition home or self-care (01) ==
LOC: RADMAMWWP 10:02
PROVIDERS: ATTEND Family Medicine
DX: Z12.31 Encounter for screening mammogram for malignant neoplasm of breast (principal); Z80.3 Family history of malignant neoplasm of breast; Z78.0 Asymptomatic menopausal state
CPT/HCPCS: 77063; 77067

== ENCOUNTER 2024-03-01 18:28 | Observation (INO) | payer BC ==
[2024-03-01 19:13] LABS: Basophils % (A) 0 %; Eosinophils # (A) 0.2 k/uL (0-0.7); Eosinophils % (A) 2 %; HGB 14.4 gm/dL (11.4-16.0); Lymphocytes # (A) 2.8 k/uL (1.0-4.8); Lymphocytes % (A) 32 %; MCHC 33.6 g/dL (31.0-37.0); MCV 95.2 fL (80.0-100.0); Mean Platelet Volume 8.4; Monocytes # (A) 0.4 k/uL (0-1.0); Monocytes % (A) 5 %; Neutrophils # (A) 5.4 k/uL (1.3-7.7); Neutrophils % (A) 61 %; Platelet Count 298 k/uL (150-450); RBC 4.52 m/uL (3.80-5.40); RDW 12.9 % (11.5-15.5); WBC 8.8 k/uL (3.8-10.6)
[2024-03-01 19:25] LABS: ALT 30 U/L (4-34); African American GFR (CKD) 58 (>60 ml/min/1.73 sqM); Anion Gap 11 mmol/L; Blood Urea Nitrogen 16 mg/dL (7-17); Calcium 10.3 mg/dL (8.4-10.2); Carbon Dioxide 17 mmol/L (22-30); Chloride 109 mmol/L (98-107); Glucose 147 mg/dL (74-99); Non-African American GFR(CKD) 50 (>60 ml/min/1.73 sqM); Sodium 137 mmol/L (137-145); Total Bilirubin 0.9 mg/dL (0.2-1.3)
[2024-03-01 19:26] LABS: AST 43 U/L (14-36); Albumin 4.2 g/dL (3.5-5.0); Alkaline Phosphatase 90 U/L (38-126)
[2024-03-01 19:42] LABS: INR 0.9 (<1.2); Partial Thromboplastin Time 22.4 sec (22.0-30.0); Prothrombin Time 10.4 sec (10.0-12.5)
--- NOTE | 2024-03-01 19:44 | ED ---
SOB HPI - General Chief Complaint: Shortness of Breath Stated Complaint: JAISON/dizzy Time Seen by Provider: 03/01/24 19:44 Source: patient Mode of arrival: ambulatory Limitations: no limitations - History of Present Illness Initial Comments: 63-year-old female with history of myasthenia gravis presenting with chief complaint of shortness of breath. Has been ongoing for few days. Also admits to nausea vomiting and diarrhea. Patient denies any chest pain. She feels extremely fatigued. No abdominal pain, fever, chill, palpitations. She reports feeling faint when she tries to stand up - Related Data Home Medications Medication Instructions Recorded Confirmed Simvastatin [Zocor] 20 mg PO HS 03/16/14 03/02/24 Ergocalciferol [Vitamin D2 50,000 unit PO SUWE 04/08/15 03/02/24 (DRISDOL)] predniSONE 5 mg PO DAILY 03/02/24 03/02/24 Allergies Allergy/AdvReac Type Severity Reaction Status Date / Time No Known Allergies Allergy Verified 03/02/24 10:30 Review of Systems ROS Statement: Those systems with pertinent positive or pertinent negative responses have been documented in the HPI. ROS Other: All systems not noted in ROS Statement are negative. Past Medical History Past Medical History: Chest Pain / Angina, Hyperlipidemia, Hypertension, Skin D isorder Additional Past Medical History / Comment(s): Alopecia. PSORIASIS. EPISODE OF DIZZYNESS, SHORTNESS OF BREATH, CHEST PRESSURE, NAUSEA 02/2015 - ADM TO [facility]. Covid 10/09 History of Any Multi-Drug Resistant Organisms: None Reported Past Surgical History: Hysterectomy, Orthopedic Surgery Additional Past Surgical History / Comment(s): SX TO REPAIR HIATAL HERNIA. LT LEG SX R/T SEVERE CUT. RT HAND GANGLION CYST EXC. Past Anesthesia/Blood Transfusion Reactions: No Reported Reaction Additional Past Anesthesia/Blood Transfusion Reaction / Comment(s): no blood transfusion Past Psychological History: Depression Smoking Status: Never smoker Past Alcohol Use History: Occasional Past Drug Use History: None Reported - Past Family History Brother(s) Family Medical History: Cancer Additional Family Medical History / Comment(s): liver, also had brother with colon cancer General Exam - General Exam Comments Initial Comments: Visual Physical Exam Vital signs reviewed General: Well-appearing, nontoxic, no acute distress. Head: Normocephalic, atraumatic Eyes: PERRLA, EOMI ENT: Airway patent Chest: Nonlabored breathing Skin: No visual rash, normal skin tone Neuro: Alert and oriented 3 Musculoskeletal: No gross abnormalities Limitations: no limitations General appearance: alert, in no apparent distress Head exam: Present: atraumatic, normocephalic, normal inspection Eye exam: Present: normal appearance, EOMI Neck exam: Present: normal inspection. Absent: meningismus Respiratory exam: Present: respiratory distress (Tachypneic). Absent: wheezes, rales, rhonchi, stridor Cardiovascular Exam: Present: normal rhythm, tachycardia, normal heart sounds. Absent: systolic murmur, diastolic murmur, rubs, gallop, clicks Neurological exam: Present: alert, oriented X3 Psychiatric exam: Present: normal affect, normal mood Skin exam: Present: warm, dry Course Vital Signs 03/01/24 03/01/24 03/01/24 18:35 20:49 20:50 Temperature 97.6 F Pulse Rate 115 H 98 Pulse Rate [ Pulse Oximetery ] Respiratory 34 H 22 22 Rate Blood Pressure 126/79 132/73 Blood Pressure [Supine] O2 Sat by Pulse 98 99 Oximetry 03/01/24 03/02/24 03/02/24 23:09 00:11 01:38 Temperature Pulse Rate 85 96 97 Pulse Rate [ Pulse Oximetery ] Respiratory 18 18 16 Rate Blood Pressure 120/88 126/79 136/81 Blood Pressure [Supine] O2 Sat by Pulse 97 95 98 Oximetry 03/02/24 02:21 Temperature 98.2 F Pulse Rate Pulse Rate [ 67 Pulse Oximetery ] Respiratory 19 Rate Blood Pressure Blood Pressure 164/88 [Supine] O2 Sat by Pulse 100 Oximetry Medical Decision Making - Medical Decision Making I performed the quick note portion of this visit, electronically signed Mustapha Canas PA-C Was pt. sent in by a medical professional or institution ([facility] Ribera, [employer] IN[employer]PAIRER, urgent care, hospital, or fpc...) When possible be specific @ -No Did you speak to anyone other than the patient for history (EMS, parent, family, police, friend...)? What history was obtained from this source @ -No Did you review nursing and triage notes (agree or disagree)? Why? @ -I reviewed and agree with nursing and triage notes Were old charts reviewed (outside hosp., previous admission, EMS record, old EKG, old radiological studies, urgent care reports/EKG's, fpc records)? Report findings @ -No old charts were reviewed Differential Diagnosis (chest pain, altered mental status, abdominal pain women, abdominal pain men, vaginal bleeding, weakness, fever, dyspnea, syncope, headache, dizziness, GI bleed, back pain, seizure, CVA, palpatations, mental health, musculoskeletal)? @ -MDM Differential Dyspnea: Coronary syndrome, arrhythmia, tamponade, asthma, COPD, pulmonary embolism, pneumonia, pneumothorax, pulmonary effusion, anaphylaxis, diabetic ketoacidosis, flailed chest, pulmonary contusion, diaphragmatic rupture, anemia, neuromuscular this is not meant to be an all-inclusive list. EKG interpreted by me (3pts min.). @ -EKG shows sinus tachycardia ventricular rate 107. NE interval 122. QRS 81. QT 311. QTc 373. X-rays interpreted by me (1pt min.). @ -Chest x-ray shows cardiomegaly with mild pulmonary vascular congestion. Correlate with BNP for congestive heart failure CT interpreted by me (1pt min.). @ -None done U/S interpreted by me (1pt. min.). @ -None done What testing was considered but not performed or refused? (CT, X-rays, U/S, labs)? Why? @ -None What meds were considered but not given or refused? Why? @ -None Did you discuss the management of the patient with other professionals (pr ofessionals i.e. , PA, [employer] IN[employer]UMENT REPAIRER, lab, RT, psych nurse, social economist, parliamentary counsel, teacher, court registry officer, telephonic case manager)? Give summary @ -Spoke with Dr. Mckeon who accepts admission Was smoking cessation discussed for >3mins.? @ -No Was critical care preformed (if so, how long)? @ -No Were there social determinants of health that impacted care today? How? (Homelessness, low income, unemployed, alcoholism, drug addiction, transportation, low edu. Level, literacy, decrease access to med. care, usp, rehab)? @ -No Was there de-escalation of care discussed even if they declined (Discuss DNR or withdrawal of care, Hospice)? DNR status @ -No What co-morbidities impacted this encounter? (DM, HTN, Smoking, COPD, CAD, Cancer, CVA, ARF, Chemo, Hep., AIDS, mental health diagnosis, sleep apnea, morbid obesity)? @ -None Was patient admitted / discharged? Hospital course, mention meds given and route, prescriptions, significant lab abnormalities, going to OR and other pertinent info. @ -63-year-old female presented chief complaint of dyspnea. History of myasthenia gravis. Workup was initiated by triage and I resumed care of the patient when she was brought back to a room. No leukocytosis or anemia. Negative troponin. Lactic acid 3.6. Negative D-dimer. Chest x-ray was suggestive of possible CHF, however the BNP is only 46. She is negative for influenza, RSV, COVID. Shortness of breath may be due to her myasthenia gravis. She was treated with pyridostigmine and colchicine. She will be admitted for further evaluation. She is agreeable with this plan. I discussed this case with my attending Dr. Camp. Undiagnosed new problem with uncertain prognosis? @ -No Drug Therapy requiring intensive monitoring for toxicity (Heparin, Nitro, Insulin, Cardizem)? @ -No Were any procedures done? @ -No Diagnosis/symptom? @ -myasthenia gravis Acute, or Chronic, or Acute on Chronic? @ -Acute on chronic Uncomplicated (without systemic symptoms) or Complicated (systemic symptoms)? @ -Complicated Side effects of treatment? @ -No Exacerbation, Progression, or Severe Exacerbation? @ -No Poses a threat to life or bodily function? How? (Chest pain, USA, OR, pneumonia, PE, COPD, DKA, ARF, appy, cholecystitis, CVA, Diverticulitis, Homicidal, Suicidal, threat to staff... and all critical care pts) @ -Yes - Lab Data Result diagrams: 03/01/24 18:52 03/01/24 18:52 Lab Results 03/01/24 03/01/24 03/01/24 Range/Units 18:52 18:52 18:52 WBC 8.8 (3.8-10.6) k/uL RBC 4.52 (3.80-5.40) m/uL Hgb 14.4 (11.4-16.0) gm/dL Hct 43.0 (34.0-46.0) % MCV 95.2 (80.0-100.0) fL MCH 32.0 (25.0-35.0) pg MCHC 33.6 (31.0-37.0) g/dL RDW 12.9 (11.5-15.5) % Plt Count 298 (150-450) k/uL MPV 8.4 Neutrophils % 61 % Lymphocytes % 32 % Monocytes % 5 % Eosinophils % 2 % Basophils % 0 % Neutrophils # 5.4 (1.3-7.7) k/uL Lymphocytes # 2.8 (1.0-4.8) k/uL Monocytes # 0.4 (0-1.0) k/uL Eosinophils # 0.2 (0-0.7) k/uL Basophils # 0.0 (0-0.2) k/uL PT 10.4 (10.0-12.5) sec INR 0.9 (<1.2) APTT 22.4 (22.0-30.0) sec D-Dimer (<0.60) mg/L FEU Sodium 137 (137-145) mmol/L Potassium 5.0 (3.5-5.1) mmol/L Chloride 109 H (98-107) mmol/L Carbon Dioxide 17 L (22-30) mmol/L Anion Gap 11 mmol/L BUN 16 (7-17) mg/dL Creatinine 1.17 H (0.52-1.04) mg/dL Est GFR (CKD-EPI)AfAm 58 (>60 ml/min/1.73 sqM) Est GFR (CKD-EPI)NonAf 50 (>60 ml/min/1.73 sqM) Glucose 147 H (74-99) mg/dL Lactic Ac Sepsis Rflx Plasma Lactic Acid Thiago (0.7-2.0) mmol/L Calcium 10.3 H (8.4-10.2) mg/dL Total Bilirubin 0.9 (0.2-1.3) mg/dL AST 43 H (14-36) U/L ALT 30 (4-34) U/L Alkaline Phosphatase 90 (38-126) U/L Troponin I (0.000-0.034) ng/mL NT-Pro-B Natriuret Pep pg/mL Total Protein 7.0 (6.3-8.2) g/dL Albumin 4.2 (3.5-5.0) g/dL Influenza Type A (PCR) (Not Detectd) Influenza Type B (PCR) (Not Detectd) RSV (PCR) (Not Detectd) SARS-CoV-2 (PCR) (Not Detectd) 03/01/24 03/01/24 03/01/24 Range/Units 18:52 20:28 20:48 WBC (3.8-10.6) k/uL RBC (3.80-5.40) m/uL Hgb (11.4-16.0) gm/dL Hct (34.0-46.0) % MCV (80.0-100.0) fL MCH (25.0-35.0) pg MCHC (31.0-37.0) g/dL RDW (11.5-15.5) % Plt Count (150-450) k/uL MPV Neutrophils % % Lymphocytes % % Monocytes % % Eosinophils % % Basophils % % Neutrophils # (1.3-7.7) k/uL Lymphocytes # (1.0-4.8) k/uL Monocytes # (0-1.0) k/uL Eosinophils # (0-0.7) k/uL Basophils # (0-0.2) k/uL PT (10.0-12.5) sec INR (<1.2) APTT (22.0-30.0) sec D-Dimer (<0.60) mg/L FEU Sodium (137-145) mmol/L Potassium (3.5-5.1) mmol/L Chloride (98-107) mmol/L Carbon Dioxide (22-30) mmol/L Anion Gap mmol/L BUN (7-17) mg/dL Creatinine (0.52-1.04) mg/dL Est GFR (CKD-EPI)AfAm (>60 ml/min/1.73 sqM) Est GFR (CKD-EPI)NonAf (>60 ml/min/1.73 sqM) Glucose (74-99) mg/dL Lactic Ac Sepsis Rflx Plasma Lactic Acid Thiago 3.6 H* (0.7-2.0) mmol/L Calcium (8.4-10.2) mg/dL Total Bilirubin (0.2-1.3) mg/dL AST (14-36) U/L ALT (4-34) U/L Alkaline Phosphatase (38-126) U/L Troponin I <0.012 (0.000-0.034) ng/mL NT-Pro-B Natriuret Pep pg/mL Total Protein (6.3-8.2) g/dL Albumin (3.5-5.0) g/dL Influenza Type A (PCR) Not Detected (Not Detectd) Influenza Type B (PCR) Not Detected (Not Detectd) RSV (PCR) Not Detected (Not Detectd) SARS-CoV-2 (PCR) Not Detected (Not Detectd) 03/01/24 03/01/24 03/01/24 Range/Units 20:48 21:09 21:37 WBC (3.8-10.6) k/uL RBC (3.80-5.40) m/uL Hgb (11.4-16.0) gm/dL Hct (34.0-46.0) % MCV (80.0-100.0) fL MCH (25.0-35.0) pg MCHC (31.0-37.0) g/dL RDW (11.5-15.5) % Plt Count (150-450) k/uL MPV Neutrophils % % Lymphocytes % % Monocytes % % Eosinophils % % Basophils % % Neutrophils # (1.3-7.7) k/uL Lymphocytes # (1.0-4.8) k/uL Monocytes # (0-1.0) k/uL Eosinophils # (0-0.7) k/uL Basophils # (0-0.2) k/uL PT (10.0-12.5) sec INR (<1.2) APTT (22.0-30.0) sec D-Dimer 0.46 (<0.60) mg/L FEU Sodium (137-145) mmol/L Potassium (3.5-5.1) mmol/L Chloride (98-107) mmol/L Carbon Dioxide (22-30) mmol/L Anion Gap mmol/L BUN (7-17) mg/dL Creatinine (0.52-1.04) mg/dL Est GFR (CKD-EPI)AfAm (>60 ml/min/1.73 sqM) Est GFR (CKD-EPI)NonAf (>60 ml/min/1.73 sqM) Glucose (74-99) mg/dL Lactic Ac Sepsis Rflx Y Plasma Lactic Acid Thiago (0.7-2.0) mmol/L Calcium (8.4-10.2) mg/dL Total Bilirubin (0.2-1.3) mg/dL AST (14-36) U/L ALT (4-34) U/L Alkaline Phosphatase (38-126) U/L Troponin I (0.000-0.034) ng/mL NT-Pro-B Natriuret Pep 46 pg/mL Total Protein (6.3-8.2) g/dL Albumin (3.5-5.0) g/dL Influenza Type A (PCR) (Not Detectd) Influenza Type B (PCR) (Not Detectd) RSV (PCR) (Not Detectd) SARS-CoV-2 (PCR) (Not Detectd) Disposition Clinical Impression: Myasthenia gravis Disposition: ADMITTED IP TO THIS HOSP Condition: Fair Time of Disposition: 23:01
--- NOTE | 2024-03-01 21:12 | XR ---
EXAMINATION TYPE: XR chest 2V DATE OF EXAM: 03/01/2024 7:50 PM CLINICAL INDICATION: Female, 63 years old with history of difficulty breathing; [facility] COMPARISON: Chest radiographs from 10/19/2020 TECHNIQUE: XR chest 2V Frontal view of the chest. FINDINGS: Lungs/Pleura: Prominent interstitial lung markings are seen scattered throughout the lungs. No eviden ce of focal consolidation, pneumothorax or pleural effusion. Pulmonary vascularity: Unremarkable. Heart/mediastinum: Cardiomediastinal silhouette is unremarkable. Musculoskeletal: No acute osseous pathology. IMPRESSION: Cardiomegaly and mild pulmonary vascular congestion. Correlate with BNP for congestive heart failure.
[2024-03-01] MEDS ORDERED: NALOXONE 0.4 MG/ML 1 ML VIAL IV PRN (22:59)
[2024-03-01] MEDS ORDERED: IBUPROFEN 400 MG TAB PO PRN (22:59)
[2024-03-01] MEDS: PYRIDOSTIGMINE 60 MG TAB PO SCH (23:13)
[2024-03-01] MEDS: ACETAMINOPHEN TAB 325 MG TAB PO PRN (23:14)
[2024-03-01] MEDS: SODIUM CHLORIDE 0.9% 1,000 ML IV ONE (23:15)
[2024-03-01] MEDS: COLCHICINE 0.6 MG EACH PO STA (23:18)
[2024-03-02] MEDS: SODIUM CHLORIDE 0.9% 1,000 ML IV SCH (02:00)
[2024-03-02 07:26] VITALS: RESP 18
[2024-03-02] MEDS: SUCRALFATE 1 GM TAB PO SCH (09:04)
[2024-03-02] MEDS: FLUoxetine HCL 20 MG CAP PO SCH (09:04)
[2024-03-02] MEDS: LORATADINE 10 MG TAB PO SCH (09:04)
[2024-03-02] MEDS: PANTOPRAZOLE 40 MG TABLET PO SCH (09:04)
[2024-03-02] MEDS: buPROPion XL 300 MG TAB.ER.24H PO SCH (09:04)
--- NOTE | 2024-03-02 10:05 | P.HPIM ---
History of Present Illness H&P Date: 03/02/24 Chief Complaint: dyspnea, nausea, diarrhea History and Physical and Discharge Summary this is a 63-year-old female recently diagnosed approximately 6 weeks ago with myasthenia gravis, presented to the ER with progressive shortness of breath. Reports yesterday morning upon awakening she was unable to catch her breath accompanied by nausea and diarrhea-progressed throughout the day and patient came into the ER. Follows with Dr. Dumont from [facility] for her MG;on daily prednisone. Denies chest pain, palpitations.on admission,mild tachycardic, pulse rate 1:15, respiratory rate 34, blood pressure 126/79 with O2 sat of 98% on room air. Place on 2 L nasal cannula,just currently been weaned off, vital signs stable.afebrile, normal WBC.hematology coagulation panel unremarkable.sodium 137, potassium 5, chloride 109, bicarb 17, BUN 16, creatinine 1.17( at baseline), glucose 147, AST 43, troponin negative 1.Reports no further diarrhea since yesterday.received a dose of colchicine last night.echo pending, cardiology consult in place.reports feels better and is eager to go home. chest x-ray reported cardiomegaly with mild pulmonary vascular congestion.BNP 46. Lactic acid 3.6, admission, resolved with IV fluid hydration currently 2. Viral studies negative. D-dimer negative.EKGhe presented sinus tachycardia. Review of Systems ROS Statement: Those systems with pertinent positive or pertinent negative responses have been documented in the HPI. ROS Other: All systems not noted in ROS Statement are negative. Past Medical History Past Medical History: Chest Pain / Angina, Hyperlipidemia, Hypertension, Skin Disorder Additional Past Medical History / Comment(s): Alopecia. PSORIASIS. EPISODE OF DIZZYNESS, SHORTNESS OF BREATH, CHEST PRESSURE, NAUSEA 02/2015 - ADM TO [facility]. Covid 10/09 History of Any Multi-Drug Resistant Organisms: None Reported Past Surgical History: Hysterectomy, Orthopedic Surgery Additional Past Surgical History / Comment(s): SX TO REPAIR HIATAL HERNIA. LT LEG SX R/T SEVERE CUT. RT HAND GANGLION CYST EXC. Past Anesthesia/Blood Transfusion Reactions: No Reported Reaction Additional Past Anesthesia/Blood Transfusion Reaction / Comment(s): no blood transfusion Past Psychological History: Depression Smoking Status: Never smoker Past Alcohol Use History: Occasional Past Drug Use History: None Reported - Past Family History Brother(s) Family Medical History: Cancer Additional Family Medical History / Comment(s): liver, also had brother with colon cancer Medications and Allergies Home Medications Medication Instructions Recorded Confirmed Type Simvastatin [Zocor] 20 mg PO HS 03/16/14 04/28/23 History Aspirin 81 mg PO DAILY 04/08/15 04/28/23 History Ergocalciferol [Vitamin D2 50,000 unit PO SUWE 04/08/15 04/28/23 History (DRISDOL)] ARIPiprazole [Abilify] 2 mg PO HS 10/19/20 04/28/23 History Cetirizine HCl 10 mg PO DAILY 10/19/20 04/28/23 History FLUoxetine HCL 40 mg PO DAILY 10/19/20 04/28/23 History buPROPion XL [Wellbutrin XL] 300 mg PO DAILY 10/19/20 04/28/23 History Cholestyramine (with Sugar) 1 packet PO DAILY 04/28/23 04/28/23 History [Cholestyramine Powder] Omeprazole [PriLOSEC] 40 mg PO DAILY #14 cap 04/28/23 Rx Sucralfate [Carafate] 1 gm PO BID #30 tablet 04/28/23 Rx Allergies Allergy/AdvReac Type Severity Reaction Status Date / Time No Known Allergies Allergy Verified 03/02/24 09:06 Physical Exam Vitals: Vital Signs Temp Pulse Pulse Resp BP BP Pulse Ox 03/02/24 07:25 97.3 F L 82 18 120/76 100 03/02/24 02:21 98.2 F 67 19 164/88 100 03/02/24 01:38 97 16 136/81 98 03/02/24 00:11 96 18 126/79 95 03/01/24 23:09 85 18 120/88 97 03/01/24 20:50 22 03/01/24 20:49 98 22 132/73 99 03/01/24 18:35 97.6 F 115 H 34 H 126/79 98 Intake and Output 03/01/24 03/02/24 03/02/24 22:59 06:59 14:59 Other: # Voids 1 Weight 119.748 kg 119.748 kg PHYSICAL EXAM: VITAL SIGNS: [as above] GENERAL: well-developed female,alert and oriented 3, sitting up in bed, no acute distress HEENT: atraumatic, normocephalic,Conjunctivae normal. eyes normal. NECK: supple ,No JVD. No thyroid enlargement. No LNs CARDIOVASCULAR: S1, S2 regular.. No murmur RESPIRATION: unlabored, equal air entry, clear to auscultation ABDOMEN: Soft, nontender,nondistended. No guarding. no masses palpable. No ascites, No hepatosplenomegaly. +BS. LEGS: No edema. no swelling NERVOUS SYSTEM: Cranial N 2-12 grossly normal.No focal deficits. Strength and sensation grossly intact. Skin: warm and dry, no rash Results CBC & Chem 7: 03/01/24 18:52 03/01/24 18:52 Labs: Abnormal Lab Results - Last 24 Hours (Table) 03/01/24 03/01/24 Range/Units 18:52 20:48 Chloride 109 H (98-107) mmol/L Carbon Dioxide 17 L (22-30) mmol/L Creatinine 1.17 H (0.52-1.04) mg/dL Glucose 147 H (74-99) mg/dL Plasma Lactic Acid Thiago 3.6 H* (0.7-2.0) mmol/L Calcium 10.3 H (8.4-10.2) mg/dL AST 43 H (14-36) U/L Thrombosis Risk Factor Assmnt - Choose All That Apply Any of the Below Risk Factors Present?: No Other Risk Factors: No Other congenital or acquired thrombophilia - If yes, enter type in comment: No Thrombosis Risk Factor Assessment Level: Very Low Risk Assessment and Plan Assessment: acute respiratory distress in a patient with shortness of breath accompanied by nausea and diarrhea 1 day,on daily prednisone,in a patient recently diagnosed with myasthenia gravis. chest x-ray reports cardiomegaly with mild pulmonary vascular congestion, normal BNP. Possible pericardial effusion, echo pending. Cardiology following. acute hypoxic respiratory failure secondary to the above, resolved Lactic acidosis secondary to all the above, resolved with IV fluidhydration morbid obesity, BMI 44 hypertension Hyperlipidemia depression Alopecia plan: Continue on current medication regime ,monitoring and symptomatic treatment. echo pending. Cardiology consult in place with recommendations pending. Patient will be discharged home today in stable condition with guarded prognosis pending echo results, final DC recommendations and clearance per cardiology. Discharge Medication List Simvastatin [Zocor] 20 mg PO HS 03/16/14 [History] Aspirin 81 mg PO DAILY 04/08/15 [History] Ergocalciferol [Vitamin D2 (DRISDOL)] 50,000 unit PO SUWE 04/08/15 [History] ARIPiprazole [Abilify] 2 mg PO HS 10/19/20 [History] Cetirizine HCl 10 mg PO DAILY 10/19/20 [History] FLUoxetine HCL 40 mg PO DAILY 10/19/20 [History] buPROPion XL [Wellbutrin XL] 300 mg PO DAILY 10/19/20 [History] Cholestyramine (with Sugar) [Cholestyramine Powder] 1 packet PO DAILY 04/28/23 [History] Omeprazole [PriLOSEC] 40 mg PO DAILY #14 cap 04/28/23 [Rx] Sucralfate [Carafate] 1 gm PO BID #30 tablet 04/28/23 [Rx] The impression and plan of care has been dictated as directed. : I performed a history and examination of this patient, discussed the same with the dictator. I agree with the dictator's note ,documented as a scribe. Any additional findings or plans will be noted.
--- NOTE | 2024-03-02 10:10 | P.CRDCN ---
History of Present Illness History of present illness: HISTORY OF PRESENT ILLNESS: This is a 63-year-old female with a past medical history significant for myasthenia gravis and hyperlipidemia. Patient does not follow with a sports centre manager. We have been asked to see the patient in consultation for shortness of breath and cardiomegaly. Patient examined at the bedside. Patient states yesterday she began to feel short of breath. She denies having any chest pain or pressure. She states that she was diagnosed with myasthenia gravis about 6 months ago and feels her symptoms may be related to that. the patient does report her Pyridostigmine was increased by the year physician yesterday. Patient states her breathing has actually improved this morning. * EKG reveals sinus tachycardia with nonspecific ST-T wave changes * Chest xray cardiomegaly and mild pulmonary vascular congestion per radiology dictation * Laboratory data: W BC 8.8. Hemoglobin 14.4. platelet count 298. D-dimer 0.46. Sodium 137. Potassium 5.0. BUN 16. Creatinine 1.17.troponin negative 1. * Current home cardiac medications include simvastatin 20 mg at night and aspirin 81 mg daily REVIEW OF SYSTEMS: At the time of my exam: CONSTITUTIONAL: Denies fever or chills. HEENT: Denies blurred vision, vision changes, or eye pain. Denies hemoptysis CARDIOVASCULAR: Denies chest pain. Denies orthopnea. Denies PND. Denies palpitations RESPIRATORY: Denies shortness of breath. GASTROINTESTINAL: Denies abdominal pain. Denies nausea or vomiting. HEMATOLOGIC: Denies bleeding disorders. GENITOURINARY: Denies any blood in urine. SKIN: Denies pruitis. Denies rash. PHYSICAL EXAM: VITAL SIGNS: Reviewed. GENERAL: Well-developed in no acute distress. HEENT: Head is normocephalic. Pupils are equal, round. Sclerae anicteric. Mucous membranes of the mouth are moist. Neck supple. No JVD or thyromegaly LUNGS: Respirations even and unlabored. Lungs essentially clear to auscultation bilaterally. HEART: Regular rate and rhythm. S1 and S2 heard. ABDOMEN: Soft. Nondistended. Nontender. EXTREMITIES: Normal range of motion. No clubbing or cyanosis. Peripheral pulses intact. No lower extremity edema NEUROLOGIC: Awake and alert. Oriented x 3. ASSESSMENT: Shortness of breath, no evidence of congestive heart failure, not fluid overloaded on examination, proBNP within normal limits Myasthenia gravis Hyperlipidemia PLAN: Patient's shortness of breath is likely related to her myasthenia gravis There is no evidence of congestive heart failure on clinical examination Obtain 2-D echo to assess cardiac structure and function Patient is currently stable from a cardiac perspective Nurse practitioner note has been reviewed by physician. Signing provider agrees with the documented findings, assessment, and plan of care. Past Medical History Past Medical History: Chest Pain / Angina, Hyperlipidemia, Hypertension, Skin Disorder Additional Past Medical History / Comment(s): Alopecia. PSORIASIS. EPISODE OF DIZZYNESS, SHORTNESS OF BREATH, CHEST PRESSURE, NAUSEA 02/2015 - ADM TO [facility]. Covid 10/09 History of Any Multi-Drug Resistant Organisms: None Reported Past Surgical History: Hysterectomy, Orthopedic Surgery Additional Past Surgical History / Comment(s): SX TO REPAIR HIATAL HERNIA. LT LEG SX R/T SEVERE CUT. RT HAND GANGLION CYST EXC. Past Anesthesia/Blood Transfusion Reactions: No Reported Reaction Additional Past Anesthesia/Blood Transfusion Reaction / Comment(s): no blood transfusion Past Psychological History: Depression Smoking Status: Never smoker Past Alcohol Use History: Occasional Past Drug Use History: None Reported - Past Family History Brother(s) Family Medical History: Cancer Additional Family Medical History / Comment(s): liver, also had brother with colon cancer Medications and Allergies Home Medications Medication Instructions Recorded Confirmed Type Simvastatin [Zocor] 20 mg PO HS 03/16/14 04/28/23 History Aspirin 81 mg PO DAILY 04/08/15 04/28/23 History Ergocalciferol [Vitamin D2 50,000 unit PO SUWE 04/08/15 04/28/23 History (DRISDOL)] ARIPiprazole [Abilify] 2 mg PO HS 10/19/20 04/28/23 History Cetirizine HCl 10 mg PO DAILY 10/19/20 04/28/23 History FLUoxetine HCL 40 mg PO DAILY 10/19/20 04/28/23 History buPROPion XL [Wellbutrin XL] 300 mg PO DAILY 10/19/20 04/28/23 History Cholestyramine (with Sugar) 1 packet PO DAILY 04/28/23 04/28/23 History [Cholestyramine Powder] Omeprazole [PriLOSEC] 40 mg PO DAILY #14 cap 04/28/23 Rx Sucralfate [Carafate] 1 gm PO BID #30 tablet 04/28/23 Rx Allergies Allergy/AdvReac Type Severity Reaction Status Date / Time No Known Allergies Allergy Verified 03/02/24 09:06 Physical Exam Vitals: Vital Signs Temp Pulse Pulse Resp BP BP Pulse Ox 03/02/24 07:25 97.3 F L 82 18 120/76 100 03/02/24 02:21 98.2 F 67 19 164/88 100 03/02/24 01:38 97 16 136/81 98 03/02/24 00:11 96 18 126/79 95 03/01/24 23:09 85 18 120/88 97 03/01/24 20:50 22 03/01/24 20:49 98 22 132/73 99 03/01/24 18:35 97.6 F 115 H 34 H 126/79 98 Intake and Output 03/01/24 03/02/24 03/02/24 22:59 06:59 14:59 Other: # Voids 1 Weight 119.748 kg 119.748 kg Results 03/01/24 18:52 03/01/24 18:52 Cardiac Enzymes 03/01/24 03/01/24 Range/Units 18:52 18:52 AST 43 H (14-36) U/L Troponin I <0.012 (0.000-0.034) ng/mL Coagulation 03/01/24 Range/Units 18:52 PT 10.4 (10.0-12.5) sec APTT 22.4 (22.0-30.0) sec CBC 03/01/24 Range/Units 18:52 WBC 8.8 (3.8-10.6) k/uL RBC 4.52 (3.80-5.40) m/uL Hgb 14.4 (11.4-16.0) gm/dL Hct 43.0 (34.0-46.0) % Plt Count 298 (150-450) k/uL Comprehensive Metabolic Panel 03/01/24 Range/Units 18:52 Sodium 137 (137-145) mmol/L Potassium 5.0 (3.5-5.1) mmol/L Chloride 109 H (98-107) mmol/L Carbon Dioxide 17 L (22-30) mmol/L BUN 16 (7-17) mg/dL Creatinine 1.17 H (0.52-1.04) mg/dL Glucose 147 H (74-99) mg/dL Calcium 10.3 H (8.4-10.2) mg/dL AST 43 H (14-36) U/L ALT 30 (4-34) U/L Alkaline Phosphatase 90 (38-126) U/L Total Protein 7.0 (6.3-8.2) g/dL Albumin 4.2 (3.5-5.0) g/dL Current Medications Generic Name Dose Route Start Last Admin Trade Name Freq PRN Reason Stop Dose Admin Acetaminophen 650 mg 03/01/24 22:59 03/01/24 23:14 Acetaminophen Tab 325 Mg Tab PO 650 mg Q6HR PRN Administration Mild Pain or Fever > 100.5 Sodium Chloride 1,000 mls @ 75 mls/hr 03/01/24 22:45 03/02/24 02:00 Saline 0.9% IV 75 mls/hr .[id number] LAURA Administration Ibuprofen 400 mg 03/01/24 22:59 Ibuprofen 400 Mg Tab PO Q6HR PRN Mild Pain or Fever > 100.5 Naloxone HCl 0.2 mg 03/01/24 22:59 Naloxone 0.4 Mg/Ml 1 Ml Vial IV Q2M PRN Opioid Reversal Pyridostigmine [place] 60 mg 03/02/24 00:00 03/02/24 05:43 Pyridostigmine 60 Mg Tab PO 60 mg 5XD LAURA Administration Intake and Output 03/01/24 03/02/24 03/02/24 22:59 06:59 14:59 Other: # Voids 1 Weight 119.748 kg 119.748 kg 03/01/24 18:52 03/01/24 18:52
--- NOTE | 2024-03-02 11:23 | CA ---
Transthoracic Echo Report Name: Carla Patrick Age: 63 Gender: F : 1960 Exam Date: 03/02/2024 10:06 Exam Location: [facility] Ht (in): 65 Wt (lb): 264 Ordering Physician: Mustapha Canas Attending/Referring Phys: Becca Dumont MD [employer] Milling Machine Tender Procedure CPT: Indications: SOB, Cardiomegaly Cardiac Hx: Technical Quality: Technically difficult study Contrast 1: Definity Total Dose (mL): 2 Contrast 2: Total Dose (mL): MEASUREMENTS (Male / Female) Normal Values 2D ECHO LV Diastolic Diameter PLAX 4.6 cm 4.2 - 5.9 / 3.9 - 5.3 cm LV Systolic Diameter PLAX 3.2 cm IVS Diastolic Thickness 0.9 cm 0.6 - 1.0 / 0.6 - 0.9 cm LVPW Diastolic Thickness 1.1 cm 0.6 - 1.0 / 0.6 - 0.9 cm LV Relative Wall Thickness 0.4 LVOT Diameter 2.0 cm Ascending Aorta Diameter 2.7 cm DOPPLER AV Peak Velocity 108.4 cm/s AV Peak Gradient 4.7 mmHg AV Mean Velocity 79.1 cm/s AV Mean Gradient 2.8 mmHg AV Velocity Time Integral 20.9 cm LVOT Peak Velocity 96.4 cm/s LVOT Peak Gradient 3.7 mmHg LVOT Velocity Time Integral 19.8 cm LVOT Stroke Volume 61.5 cm??? LVOT Stroke Volume Index 27.6 ml/m??? LVOT Cardiac Index 2195.6 cm???/min???m??? AV Area Cont Eq vti 2.9 cm??? AV Area Cont Eq pk 2.8 cm??? MV Area PHT 4.5 cm??? Mitral E Point Velocity 57.4 cm/s Mitral A Point Velocity 72.4 cm/s Mitral E to A Ratio 0.8 MV Deceleration Time 170.0 ms PV Peak Velocity 137.2 cm/s PV Peak Gradient 7.5 mmHg FINDINGS Left Ventricle Left ventricular ejection fraction is estimated at 55-60 %. Mildly increased posterior wall thickness. Left ventricular cavity size normal. No obvious regional wall motion abnormalities. Right Ventricle Right ventricle not well visualized. Unable to estimate the right ventricular systolic pressure. Right Atrium Right atrium not well visualized. Left Atrium Left atrium not well visualized. Mitral Valve Structurally normal mitral valve. No evidence for mitral valve prolapse. No mitral stenosis. No mitral regurgitation. Aortic Valve Trileaflet aortic valve. No aortic valve stenosis or regurgitation. Tricuspid Valve Tricuspid valve not well visualized. No tricuspid stenosis. No tricuspid regurgitation. Pulmonic Valve Pulmonic valve not well visualized. No pulmonic stenosis. No pulmonic regurgitation. Pericardium No pericardial effusion. Aorta Normal size aortic root and proximal ascending aorta. CONCLUSIONS Normal LV function Previewed by: Dr. Brandt Faulkner MD (Electronically Signed) Final Date: 02 March 2024 11:23
[2024-03-02] MEDS: ASPIRIN 81 MG PO SCH (11:57)
[2024-03-02] MEDS: predniSONE 5 MG TAB PO SCH (13:41)
[2024-03-02 13:59] VITALS: BP 110/75; PULSE 91; TEMP 97.8
[2024-03-02] MEDS ORDERED: ATORVASTATIN 10 MG TAB PO SCH (21:00)
[2024-03-05] MEDS ORDERED: ERGOCALCIFEROL 1,250 MCG (50,000 IU) CAPSULE PO SCH (09:00)
== END 2024-03-02 14:55 | disposition home or self-care (01) ==
LOC: EC 18:28 → 4SSUR 23:01 → INTOOBSV 23:01 → 4SSUR 03-02 00:06
PROVIDERS: ADMIT Family Medicine; ATTEND Family Medicine
DX: J96.01 Acute respiratory failure with hypoxia (principal); G70.00 Myasthenia gravis without (acute) exacerbation; E87.20 Acidosis, unspecified; L65.9 Nonscarring hair loss, unspecified; E78.5 Hyperlipidemia, unspecified; I10 Essential (primary) hypertension; F32.A Depression, unspecified; E66.01 Morbid (severe) obesity due to excess calories; Z68.41 Body mass index [BMI] 40.0-44.9, adult; Z11.52 Encounter for screening for COVID-19; Z79.82 Long term (current) use of aspirin; Z79.899 Other long term (current) drug therapy
CPT/HCPCS: 36415; 71046; 80053; 83605; 83880; 84484; 85025; 85379; 85610; 85730; 87636; 93005; 93306; 96360; 96361; 99285

== ENCOUNTER 2024-03-22 10:32 | Day surgery (SDC) | payer BC ==
[2024-03-21 08:26] VITALS: BMI 43.7
--- NOTE | 2024-03-22 08:16 | P.GSHP ---
History of Present Illness H&P Date: 03/22/24 CHIEF COMPLAINT: Anemia with GI bleed HISTORY OF PRESENT ILLNESS: The patient is a 63-year-old female who presents reports gastrointestinal bleeding with anemia for over 1 month. Upper endoscopy was offered for further evaluation and management. PAST MEDICAL HISTORY: Please see list. PAST SURGICAL HISTORY: Please see list. MEDICATIONS: Please see list. ALLERGIES: Please see list. SOCIAL HISTORY: No illicit drug use FAMILY HISTORY: No reports of Crohn disease or ulcerative colitis. REVIEW OF ORGAN SYSTEMS: CONSTITUTIONAL: No reports of fevers or chills. GI: Denies any blood in stools or constipation. PHYSICAL EXAM: VITAL SIGNS: Stable GENERAL: Well-developed and pleasant in no acute distress. HEENT: No scleral icterus. Extraocular movements grossly intact. Moist buccal mucosa. NECK: Supple without lymphadenopathy. CHEST: Unlabored respirations. Equal bilateral excursions. CARDIOVASCULAR: Regular rate and rhythm. Distal 2+ pulses. ABDOMEN: Soft, nondistended. MUSCULOSKELETAL: No clubbing, cyanosis, or edema. ASSESSMENT: 1. Gastrointestinal bleeding with anemia PLAN: 1. Recommend proceeding with an upper endoscopy Past Medical History Past Medical History: Chest Pain / Angina, Hyperlipidemia, Hypertension, Skin Disorder Additional Past Medical History / Comment(s): Alopecia, PSORIASIS, MYASTHENIA GRAVIS History of Any Multi-Drug Resistant Organisms: None Reported Past Surgical History: Hysterectomy, Orthopedic Surgery Additional Past Surgical History / Comment(s): SX TO REPAIR HIATAL HERNIA, LT LEG SX R/T SEVERE CUT, RT HAND GANGLION CYST EXC. Past Anesthesia/Blood Transfusion Reactions: No Reported Reaction Additional Past Anesthesia/Blood Transfusion Reaction / Comment(s): no blood transfusion Past Psychological History: Depression Smoking Status: Never smoker Past Alcohol Use History: Occasional Past Drug Use History: None Reported - Past Family History Brother(s) Family Medical History: Cancer Additional Family Medical History / Comment(s): liver, also had brother with colon cancer Medications and Allergies Home Medications Medication Instructions Recorded Confirmed Type Simvastatin [Zocor] 20 mg PO HS 03/16/14 03/21/24 History Ergocalciferol [Vitamin D2 50,000 unit PO SUWE 04/08/15 03/21/24 History (DRISDOL)] predniSONE 10 mg PO DAILY 03/02/24 03/21/24 History Allergies Allergy/AdvReac Type Severity Reaction Status Date / Time No Known Allergies Allergy Verified 03/21/24 08:20
[2024-03-22] MEDS: IV FLUID CONTINUATION 1,000 ML IV ONE (11:43)
[2024-03-22 11:51] VITALS: RESP 16; TEMP 97.1
[2024-03-22] MEDS: LACTATED RINGERS 1,000 ML IV SCH (12:00)
[2024-03-22 12:03] LABS: Glucose,Whole Blood 99 mg/dL (70-110)
[2024-03-22] MEDS ORDERED: LIDOCAINE 1% INJ 10MG/ML (20 ML MDV) ONE (12:21)
[2024-03-22] MEDS ORDERED: PROPOFOL 10 MG/ML 20 ML VIAL IV ONE (12:21)
[2024-03-22 13:08] VITALS: BP 112/82; PULSE 83
--- NOTE | 2024-03-22 14:01 | P.PCN ---
Date of Procedure: 03/22/24 Description of Procedure: PREOPERATIVE DIAGNOSIS: Gastrointestinal bleeding Gastroesophageal reflux disease. Morbid obesity. POSTOPERATIVE DIAGNOSIS: Gastroesophageal reflux disease with erosive esophagitis Morbid obesity. Gastritis, chronic Brayden fundoplasty OPERATION: Esophagogastroduodenoscopy with cold forceps biopsies along esophagus, antrum and duodenum SURGEON: Dee Dee Hayes MD ANESTHESIA: MAC. INDICATIONS: The patient is a 63-year-old female who presents with gastrointestinal bleeding and melena. Benefits and risks of the procedure were described. Informed consent was obtained. DESCRIPTION: The patient was brought into the endoscopy suite and laid in the left lateral decubitus position. An Olympus gastroscope was passed along the posterior oropharynx down to the distal esophagus where the squamocolumnar junction was encountered at 35 cm from the incisors. The stomach was entered and no bile reflux was found. Additional findings are listed below. Biopsies with cold forceps were obtained of the antrum. The first through third portion of the duodenum was examined. Retroflexion of the scope confirmed Hill grade 2+ lower esophageal valve. The squamocolumnar junction demonstrated LA grade C erosive esophagitis. The stomach was desufflated. The patient tolerated the procedure well. FINDINGS: Squamocolumnar junction 35 cm from the incisors. Diaphragmatic hiatus at 35 cm. Brayden fundoplasty with loosening Hill grade 2 lower esophageal valve. LA grade C erosive esophagitis. Biopsies obtained with cold forceps Biopsies obtained of the duodenum. Chronic gastritis with biopsies obtained. RECOMMENDATIONS: Omeprazole 40 mg daily initiated for gastritis including erosive esophagitis Upper endoscopy as needed. Plan - Discharge Summary Discharge Rx Participant: No New Discharge Prescriptions: New Omeprazole [PriLOSEC] 40 mg PO DAILY #90 cap Continue Simvastatin [Zocor] 20 mg PO HS Ergocalciferol [Vitamin D2 (DRISDOL)] 50,000 unit PO SUWE predniSONE 10 mg PO DAILY Discharge Medication List Simvastatin [Zocor] 20 mg PO HS 03/16/14 [History] Ergocalciferol [Vitamin D2 (DRISDOL)] 50,000 unit PO SUWE 04/08/15 [History] predniSONE 10 mg PO DAILY 03/02/24 [History] Omeprazole [PriLOSEC] 40 mg PO DAILY #90 cap 03/22/24 [Rx] Follow up Appointment(s)/Referral(s): Dee Dee Hayes MD [STAFF PHYSICIAN] - 03/28/24 4:45 pm Patient Instructions/Handouts: GERD (Gastroesophageal Reflux Disease) (ED) Discharge Disposition: HOME SELF-CARE
== END 2024-03-22 14:15 | disposition home or self-care (01) ==
LOC: ORWHC2ENDO 10:32
PROVIDERS: ATTEND Surgery Plastic and Reconstructive Surgery
DX: K92.2 Gastrointestinal hemorrhage, unspecified
CPT/HCPCS: 43239; 88305

== ENCOUNTER 2024-04-14 14:38 | Observation (INO) | payer BC ==
--- NOTE | 2024-04-14 14:51 | ED ---
General Adult HPI - General Source: patient, RN notes reviewed Mode of arrival: ambulatory Limitations: no limitations <Katharina Churchill - Last Filed: 04/14/24 14:50> - General Source: patient, RN notes reviewed, old records reviewed, Caregiver Mode of arrival: ambulatory Limitations: no limitations - History of Present Illness -: week(s) (Just less than a week) Consistency: constant Improves with: none Associated Symptoms: cough Treatments Prior to Arrival: none <Diomedes Kelley - Last Filed: 04/19/24 19:26> - General Stated complaint: covid +/myasthenia gravis Time Seen by Provider: 04/14/24 14:50 - History of Present Illness Initial comments: Quick note: 63-year-old female with a past medical history significant of myasthenia gravis presenting to the ER with a cough. Patient states 1 week ago she was diagnosed with COVID. She was started on Trelegy, Tessalon Perles, albuterol inhaler and prednisone by PCP. She states she is having difficulty controlling cough and was sent to ER for further evaluation. No fevers. No chest pain. (Katharina Churchill) This is a 63-year-old female with underlying myasthenia gravis presenting with concern for myasthenia gravis crisis persistent coronavirus which recent diagnosis 1 week ago persistent cough worsening cough and shortness of breath (Diomedes Kelley) - Related Data Home Medications Medication Instructions Recorded Confirmed Simvastatin [Zocor] 20 mg PO HS 03/16/14 04/14/24 Ergocalciferol [Vitamin D2 50,000 unit PO SUWE 04/08/15 04/14/24 (DRISDOL)] Albuterol Sulfate [Albuterol 2 puff INHALATION RT-Q4H PRN 04/14/24 04/14/24 Sulfate Hfa] Azithromycin [Zithromax Z Pack] See Taper PO DAILY 04/14/24 04/14/24 Benzonatate [Tessalon Perle] 200 mg PO TID 04/14/24 04/14/24 Fluticasone/Umeclidin/Vilanter 1 puff INHALATION RT-DAILY 04/14/24 04/14/24 [Trelegy Ellipta 200-62.5-25] Previous Rx's Medication Instructions Recorded predniSONE 10 mg PO W/BRKFST #0 04/16/24 predniSONE [Deltasone] 40 mg PO W/BRKFST #8 tab 04/16/24 Allergies Allergy/AdvReac Type Severity Reaction Status Date / Time No Known Allergies Allergy Verified 04/14/24 15:09 Review of Systems ROS Other: All systems not noted in ROS Statement are negative. <Katharina Churchill - Last Filed: 04/14/24 14:50> ROS Other: All systems not noted in ROS Statement are negative. <Diomedes Kelley - Last Filed: 04/19/24 19:26> ROS Statement: Those systems with pertinent positive or pertinent negative responses have been documented in the HPI. Past Medical History Past Medical History: Chest Pain / Angina, Hyperlipidemia, Hypertension, Skin Disorder Additional Past Medical History / Comment(s): Alopecia, PSORIASIS, MYASTHENIA GRAVIS History of Any Multi-Drug Resistant Organisms: None Reported Past Surgical History: Hysterectomy, Orthopedic Surgery Additional Past Surgical History / Comment(s): SX TO REPAIR HIATAL HERNIA, LT LEG SX R/T SEVERE CUT, RT HAND GANGLION CYST EXC. Past Anesthesia/Blood Transfusion Reactions: No Reported Reaction Additional Past Anesthesia/Blood Transfusion Reaction / Comment(s): no blood transfusion Past Psychological History: Depression Smoking Status: Never smoker Past Alcohol Use History: Occasional Past Drug Use History: None Reported - Past Family History Brother(s) Family Medical History: Cancer Additional Family Medical History / Comment(s): liver, also had brother with colon cancer <Katharina Churchill - Last Filed: 04/14/24 14:50> General Exam <Katharina Churchill - Last Filed: 04/14/24 14:50> General appearance: alert, in no apparent distress Head exam: Present: atraumatic, normocephalic, normal inspection Eye exam: Present: normal appearance, PERRL, EOMI. Absent: scleral icterus, conjunctival injection, periorbital swelling ENT exam: Present: normal exam, mucous membranes moist Neck exam: Present: normal inspection. Absent: tenderness, meningismus, lymphadenopathy Respiratory exam: Present: normal lung sounds bilaterally. Absent: respiratory distress, wheezes, rales, rhonchi, stridor Cardiovascular Exam: Present: normal rhythm, tachycardia, normal heart sounds. Absent: systolic murmur, diastolic murmur, rubs, gallop, clicks GI/Abdominal exam: Present: soft, normal bowel sounds. Absent: distended, tenderness, guarding, rebound, rigid Extremities exam: Present: normal inspection, full ROM, normal capillary refill. Absent: tenderness, pedal edema, joint swelling, calf tenderness Back exam: Present: normal inspection Neurological exam: Present: alert, oriented X3, CN II-XII intact Psychiatric exam: Present: normal affect, normal mood Skin exam: Present: warm, dry, intact, normal color. Absent: rash <Diomedes Kelley - Last Filed: 04/19/24 19:26> - General Exam Comments Initial Comments: Visual Physical Exam Vital signs reviewed General: Well-appearing, nontoxic, no acute distress. Head: Normocephalic, atraumatic Eyes: PERRLA, EOMI ENT: Airway patent Chest: Nonlabored breathing Skin: No visual rash, normal skin tone Neuro: Alert and oriented 3 Musculoskeletal: No gross abnormalities (Katharina Churchill) Course <Diomedes Kelley - Last Filed: 04/19/24 19:26> Vital Signs 04/14/24 04/14/24 04/14/24 15:10 18:23 19:30 Temperature 98.2 F 97.8 F Pulse Rate 114 H 97 Pulse Rate [ Pulse Oximetery ] Respiratory 20 17 19 Rate Blood Pressure 126/90 135/84 Blood Pressure [Left Arm] O2 Sat by Pulse 96 97 Oximetry 04/14/24 04/14/24 20:00 21:03 Temperature 97.5 F L Pulse Rate 84 Pulse Rate [ 101 H Pulse Oximetery ] Respiratory 15 18 Rate Blood Pressure 162/97 Blood Pressure 154/102 [Left Arm] O2 Sat by Pulse 96 95 Oximetry - Reevaluation(s) Reevaluation #1: 04/14/24 17:54 Medical records reviewed (Diomedes Kelley) Reevaluation #2: 04/14/24 17:54 Patient symptoms unchanged (Diomedes Kelley) Reevaluation #3: 04/14/24 17:54 Patient informed of results and questions answered (Diomedes Kelley) Reevaluation #4: Was pt. sent in by a medical professional or institution (Dr., PA, WAX PATTERN REPAIRER, urgent care, hospital, or fci...) When possible be specific @ -no Did you speak to anyone other than the patient for history (EMS, parent, family, police, friend...)? What history was obtained from this source @ -no Did you review nursing and triage notes (agree or disagree)? Why? @ -agree Are old charts reviewed (outside hosp., previous admission, EMS record, old EKG, old radiological studies, urgent care reports/EKG's, fci records)? Report findings @ -yes Differential Diagnosis (chest pain, altered mental status, abdominal pain women, abdominal pain men, vaginal bleeding, weakness, fever, dyspnea, syncope, headache, dizziness, GI bleed, back pain, seizure, CVA, palpatations, mental health, musculoskeletal)? @ -prior EKG interpreted by me (3pts min.). @ -yes X-rays interpreted by me (1pt min.). @ -yes negative for acute disease CT interpreted by me (1pt min.). @ -no U/S interpreted by me (1pt. min.). @ -no What testing was considered but not performed or refused? (CT, X-rays, U/S, labs)? Why? @ -none What meds were considered but not given or refused? Why? @ -none Did you discuss the management of the patient with other professionals (professionals i.e. ANAY Ribera, WAX PATTERN REPAIRER, lab, RT, psych nurse, social work professor, tip finisher, teacher, trust officer, egg caser)? Give summary @ -no Was smoking cessation discussed for >3mins.? @ -no Was critical care preformed (if so, how long)? @ -no Were there social determinants of health that impacted care today? How? (Homelessness, low income, unemployed, alcoholism, drug addiction, transportation, low edu. Level, literacy, decrease access to med. care, senior care, rehab)? @ -none Was there de-escalation of care discussed even if they declined (Discuss DNR or withdrawal of care, Hospice)? DNR status @ -no What co-morbidities impacted this encounter? (DM, HTN, Smoking, COPD, CAD, Cancer, CVA, ARF, Chemo, Hep., AIDS, mental health diagnosis, sleep apnea, morbid obesity)? @ -none Was patient admitted / discharged? Hospital course, mention meds given and route, prescriptions, significant lab abnormalities, going to OR and other pertinent info. @ - 63 female to the ER for evaluation of severe shortness of breath cough congestion with coronavirus. Patient will admit for concern for myasthenia crisis versus coronavirus persistent Admit Undiagnosed new problem with uncertain prognosis? @ -no Drug Therapy requiring intensive monitoring for toxicity (Heparin, Nitro, Insulin, Cardizem)? @ -no Were any procedures done? @ -no Diagnosis/symptom? @ -Coronavirus of myasthenic crisis Acute, or Chronic, or Acute on Chronic? @ -Acute Uncomplicated (without systemic symptoms) or Complicated (systemic symptoms)? @ -Complicated Side effects of treatment? @ -no Exacerbation, Progression, or Severe Exacerbation? @ -exacerbation Poses a threat to life or bodily function? How? (Chest pain, [place], [place], pneumonia, PE, COPD, DKA, ARF, appy, cholecystitis, CVA, Diverticulitis, Homicidal, Suicidal, threat to staff... and all critical care pts) @ -yes underlying myasthenia gravis (Diomedes Kelley) Reevaluation #5: Differential Dyspnea: Coronary syndrome, arrhythmia, tamponade, asthma, COPD, pulmonary embolism, pneumonia, pneumothorax, pulmonary effusion, anaphylaxis, diabetic ketoacidosis, flailed chest, pulmonary contusion, diaphragmatic rupture, anemia, neuromuscular, this is not meant to be an all-inclusive list. (Diomedes Kelley) Medical Decision Making <Katharina Churchill - Last Filed: 04/14/24 14:50> - Lab Data Result diagrams: 04/15/24 03:36 04/15/24 03:36 - Radiology Data Radiology results: report reviewed (Chest x-ray is negative for acute disease), image reviewed <Diomedes Kelley - Last Filed: 04/19/24 19:26> - Medical Decision Making I performed the quick note portion of this chart. Electronically signed by Katharina Churchill PA-C (Katharina Churchill) 63 female to the ER for evaluation of severe shortness of breath cough congestion with coronavirus. Patient will admit for concern for myasthenia crisis versus coronavirus persistent (Diomedes Kelley) - Lab Data Lab Results 04/14/24 04/14/24 Range/Units 15:41 15:41 WBC 11.5 H (3.8-10.6) k/uL RBC 4.77 (3.80-5.40) m/uL Hgb 14.7 (11.4-16.0) gm/dL Hct 46.3 H (34.0-46.0) % MCV 97.2 (80.0-100.0) fL MCH 30.9 (25.0-35.0) pg MCHC 31.8 (31.0-37.0) g/dL RDW 13.0 (11.5-15.5) % Plt Count 290 (150-450) k/uL MPV 8.0 Neutrophils % 80 % Lymphocytes % 14 % Monocytes % 4 % Eosinophils % 1 % Basophils % 0 % Neutrophils # 9.1 H (1.3-7.7) k/uL Lymphocytes # 1.6 (1.0-4.8) k/uL Monocytes # 0.4 (0-1.0) k/uL Eosinophils # 0.1 (0-0.7) k/uL Basophils # 0.0 (0-0.2) k/uL Sodium 139 (137-145) mmol/L Potassium 4.7 (3.5-5.1) mmol/L Chloride 110 H (98-107) mmol/L Carbon Dioxide 20 L (22-30) mmol/L Anion Gap 9 mmol/L BUN 18 H (7-17) mg/dL Creatinine 0.94 (0.52-1.04) mg/dL Est GFR (CKD-EPI)AfAm 76 (>60 ml/min/1.73 sqM) Est GFR (CKD-EPI)NonAf 66 (>60 ml/min/1.73 sqM) Glucose 181 H (74-99) mg/dL Calcium 9.7 (8.4-10.2) mg/dL Total Bilirubin 0.8 (0.2-1.3) mg/dL AST 35 (14-36) U/L ALT 29 (4-34) U/L Alkaline Phosphatase 111 (38-126) U/L Total Protein 7.5 (6.3-8.2) g/dL Albumin 4.3 (3.5-5.0) g/dL Disposition <Katharina Churchill - Last Filed: 04/14/24 14:50> Is patient prescribed a controlled substance at d/c from ED?: No Time of Disposition: 18:00 <Diomedes Kelley - Last Filed: 04/19/24 19:26> Clinical Impression: Myasthenia gravis, Asthma with acute exacerbation, Coronavirus infection, Tachycardia, Dyspnea Disposition: ADMITTED IP TO THIS HOSP Condition: Fair
--- NOTE | 2024-04-14 15:31 | XR ---
EXAMINATION TYPE: XR chest 2V DATE OF EXAM: 04/14/2024 COMPARISON: 03/01/2024 HISTORY: Shortness of breath TECHNIQUE: Frontal and lateral views of the chest are obtained. FINDINGS: Scattered senescent parenchymal changes noted. Hyperinflation compatible with COPD. No evidence for infiltrate. No evidence for atelectasis. Heart size is stable. Mediastinal structures are stable and grossly unremarkable. No evidence for hilar prominence. Degenerative changes dorsal spine. IMPRESSION: 1. No evidence for acute pulmonary disease. [facility], , 04/14/2024 3:29 PM
[2024-04-14 15:52] LABS: Basophils % (A) 0 %; Eosinophils # (A) 0.1 k/uL (0-0.7); Eosinophils % (A) 1 %; HCT 46.3 % (34.0-46.0); HGB 14.7 gm/dL (11.4-16.0); Lymphocytes # (A) 1.6 k/uL (1.0-4.8); Lymphocytes % (A) 14 %; MCH 30.9 pg (25.0-35.0); MCHC 31.8 g/dL (31.0-37.0); MCV 97.2 fL (80.0-100.0); Monocytes # (A) 0.4 k/uL (0-1.0); Monocytes % (A) 4 %; Neutrophils # (A) 9.1 k/uL (1.3-7.7); Neutrophils % (A) 80 %; Platelet Count 290 k/uL (150-450); RBC 4.77 m/uL (3.80-5.40); WBC 11.5 k/uL (3.8-10.6)
[2024-04-14 16:08] LABS: ALT 29 U/L (4-34); African American GFR (CKD) 76 (>60 ml/min/1.73 sqM); Albumin 4.3 g/dL (3.5-5.0); Anion Gap 9 mmol/L; Blood Urea Nitrogen 18 mg/dL (7-17); Calcium 9.7 mg/dL (8.4-10.2); Carbon Dioxide 20 mmol/L (22-30); Chloride 110 mmol/L (98-107); Glucose 181 mg/dL (74-99); Non-African American GFR(CKD) 66 (>60 ml/min/1.73 sqM); Sodium 139 mmol/L (137-145); Total Bilirubin 0.8 mg/dL (0.2-1.3); Total Protein 7.5 g/dL (6.3-8.2)
[2024-04-14 16:13] LABS: AST 35 U/L (14-36); Alkaline Phosphatase 111 U/L (38-126); Potassium 4.7 mmol/L (3.5-5.1)
[2024-04-14] MEDS ORDERED: NALOXONE 0.4 MG/ML 1 ML VIAL IVP PRN (17:51)
[2024-04-14] MEDS ORDERED: ONDANSETRON 4 MG/2 ML VIAL IVP PRN (17:51)
[2024-04-14] MEDS ORDERED: MORPHINE SULFATE 4 MG/ML SYRINGE IV PRN (17:51)
[2024-04-14] MEDS ORDERED: NALOXONE 0.4 MG/ML 1 ML VIAL IV PRN (17:51)
[2024-04-14] MEDS ORDERED: ACETAMINOPHEN TAB 325 MG TAB PO PRN (17:51)
[2024-04-14] MEDS: SODIUM CHLORIDE 0.9% 1,000 ML IV SCH (19:04)
[2024-04-15] MEDS: predniSONE 10 MG TAB PO SCH (09:15)
[2024-04-15 09:32] LABS: Basophils # (A) 0.03 X 10*3/uL (0.00-0.10); Basophils % (A) 0.3 %; Eosinophils # (A) 0.01 X 10*3/uL (0.04-0.35); Eosinophils % (A) 0.1 %; HCT 42.1 % (37.2-46.3); HGB 13.6 g/dL (12.0-15.0); Lymphocytes # (A) 2.96 X 10*3/uL (0.90-5.00); Lymphocytes % (A) 24.7 %; MCH 31.3 pg (27.0-32.0); MCHC 32.3 g/dL (32.0-37.0); Mean Platelet Volume 10.8 FL (9.5-12.2); Monocytes # (A) 1.07 X 10*3/uL (0.20-1.00); Monocytes % (A) 8.9 %; NRBC Per 100 WBC 0 X 10*3/uL (0.00-0.01); Neutrophils # (A) 7.87 X 10*3/uL (1.80-7.70); Neutrophils % (A) 65.6 %; Platelet Count 265 X 10*3/uL (140-440); RBC 4.34 X 10*6/uL (4.10-5.20); RDW 13.2 % (11.5-14.5); WBC 11.99 X 10*3/uL (4.50-10.00)
[2024-04-15 09:33] LABS: Blood Urea Nitrogen 20.5 mg/dL (9.0-27.0); Glucose 95 mg/dL (70-110)
[2024-04-15 09:34] LABS: ALT 26 U/L (8-44); AST 18 U/L (13-35); Albumin 3.9 g/dL (3.8-4.9); Albumin/Globulin Ratio 1.56 Ratio (1.60-3.17); Alkaline Phosphatase 107 U/L (41-126); Calcium 9.4 mg/dL (8.7-10.3); Carbon Dioxide 24.3 mmol/L (21.6-31.8); Chloride 107 mmol/L (96-109); Globulin 2.5 g/dL (1.6-3.3); Magnesium 2.3 mg/dL (1.5-2.4); Phosphorus 4.3 mg/dL (2.4-5.1); Potassium 4.6 mmol/L (3.5-5.5); Sodium 142 mmol/L (135-145); Total Bilirubin 0.2 mg/dL (0.3-1.2); Total Protein 6.4 g/dL (6.2-8.2)
[2024-04-15] MEDS: predniSONE 20 MG TAB PO SCH (10:17)
[2024-04-15] MEDS: BENZONATATE 100 MG CAP PO SCH (11:05)
--- NOTE | 2024-04-15 11:26 | CT ---
EXAMINATION TYPE: CT angio chest CT DLP: 633 mGycm, Automated exposure control for dose reduction was used. DATE OF EXAM: 04/15/2024 11:03 AM COMPARISON: 10/19/2020 CLINICAL INDICATION: Female, 63 years old with history of Dyspnea, CoVID; SOB, COVID TECHNIQUE/CONTRAST: CTA scan of the thorax is performed with IV Contrast, patient injected with 100 mL of Isovue 370, MIP images are created and reviewed these are created on a separate workstation.. FINDINGS: Pulmonary Artery: There is no evidence for a filling defect within the pulmonary vasculature to sugge st acute pulmonary embolism. The pulmonary artery is of normal size. Lungs/Pleura: Low lung volumes present. No evidence of focal consolidation, pleural effusion or pneum othorax. Airway: Large airways are patent. Heart: Heart is within normal limits for size. Vasculature: No evidence of aortic aneurysm. Mediastinum: No gross evidence of adenopathy. Postsurgical changes to the gastroesophageal junction. Musculoskeletal: No acute osseous abnormalities Soft Tissues/lymph nodes: Unremarkable. Lower neck: No significant findings. Upper Abdomen: Diffuse low-attenuation to the liver parenchyma.. IMPRESSION: 1. No evidence of pulmonary embolism. 2. Small hiatal hernia. 3. Hepatic steatosis. Follow up recommendations for incidental pulmonary nodules, if there are any, are per [employer] or [employer]. https://radiopaedia.org/articles/weinjhabww-szrsvav-omaaalpqd-rkkchc-aypgwdoaejoneks-0?lang=us [facility], , 04/15/2024 11:23 AM
--- NOTE | 2024-04-15 13:07 | P.CNPUL ---
History of Present Illness Consult date: 04/15/24 Requesting physician: Albert Rae Reason for consult: cough Chief complaint: Cough History of present illness: This ia a pleasant 63-year-old female patient with a known history of myasthenia gravis, hypertension, hyperlipidemia, alopecia, non-smoker who was diagnosed with COVID-19 infection 9 days ago. She had ongoing issues with a post-COVID cough and was treated with Trelegy, Tessalon Perles and albuterol HFA by her PCP without much improvement. She presented here to the emergency room yesterday for the same. No shortness of breath, no fever, no chills. No GI upset. No hemoptysis. Chest x-ray shows no evidence of acute pulmonary disease. White count 11.9. Hemoglobin 13.6. Platelets 265. Sodium 142. Potassium 4.6. Bicarb 24. BUN 21. Creatinine 1.0. D-dimer 0.81. She is seen today in consultation on the regular medical floor. She is currently resting comfortably in bed. Awake and alert in no acute distress. Maintaining O2 saturations in the 90s on room air. Review of Systems REVIEW OF SYSTEMS: CONSTITUTIONAL: Denies any recent significant weight loss or weight gain. EYES: Denies change in vision. EARS, NOSE, MOUTH, THROAT: Denies headaches, denies sore throat. CARDIOVASCULAR: Denies chest pain, palpitations or syncopal episodes. RESPIRATORY: Positive for cough. GASTROINTESTINAL: Denies change in appetite, denies abdominal pain GENITOURINARY: Denies hematuria, denies infections. MUSKULOSKELETAL: Denies pain, denies swelling. INTEGUMENTARY: Denies rash, denies eczema. NEUROLOGICAL: Denies recent memory loss, no recent seizure activity. PSYCHIATRIC: Denies anxiety, denies depression. HEMATOLOGIC/LYMPHATIC: Denies anemia, denies enlarged lymph nodes. Past Medical History Past Medical History: Chest Pain / Angina, Hyperlipidemia, Hypertension, Skin Disorder Additional Past Medical History / Comment(s): Alopecia, PSORIASIS, MYASTHENIA GRAVIS. History of Any Multi-Drug Resistant Organisms: None Reported Past Surgical History: Hernia Repair, Hysterectomy, Orthopedic Surgery Additional Past Surgical History / Comment(s): SX TO REPAIR HIATAL HERNIA, L LEG SX R/T SEVERE CUT, R HAND GANGLION CYST EXC. Past Anesthesia/Blood Transfusion Reactions: No Reported Reaction Additional Past Anesthesia/Blood Transfusion Reaction / Comment(s): no blood transfusion. Past Psychological History: Depression Smoking Status: Never smoker Past Alcohol Use History: Occasional Past Drug Use History: None Reported - Past Family History Brother(s) Family Medical History: Cancer Additional Family Medical History / Comment(s): liver, also had brother with colon cancer. Medications and Allergies Home Medications Medication Instructions Recorded Confirmed Type Simvastatin [Zocor] 20 mg PO HS 03/16/14 04/14/24 History Ergocalciferol [Vitamin D2 50,000 unit PO SUWE 04/08/15 04/14/24 History (DRISDOL)] predniSONE 10 mg PO W/BRKFST 03/02/24 04/14/24 History Albuterol Sulfate [Albuterol 2 puff INHALATION RT-Q4H PRN 04/14/24 04/14/24 History Sulfate Hfa] Azithromycin [Zithromax Z Pack] See Taper PO DAILY 04/14/24 04/14/24 History Benzonatate [Tessalon Perle] 200 mg PO TID 04/14/24 04/14/24 History Fluticasone/Umeclidin/Vilanter 1 puff INHALATION RT-DAILY 04/14/24 04/14/24 History [Trelegy Ellipta 200-62.5-25] Allergies Allergy/AdvReac Type Severity Reaction Status Date / Time No Known Allergies Allergy Verified 04/14/24 15:09 Physical Exam Vitals: Vital Signs Temp Pulse Pulse Resp BP BP Pulse Ox 04/15/24 07:30 97.6 F 80 16 137/82 93 L 04/15/24 02:00 97.7 F 82 15 127/84 91 L 04/14/24 23:43 97.8 F 98 137/89 95 04/14/24 21:03 84 18 162/97 95 04/14/24 20:00 97.5 F L 101 H 15 154/102 96 04/14/24 19:30 19 04/14/24 18:23 97.8 F 97 17 135/84 97 04/14/24 15:10 98.2 F 114 H 20 126/90 96 Intake and Output 04/14/24 04/15/24 04/15/24 22:59 06:59 14:59 Other: Voiding Method Toilet # Voids 2 Weight 119.295 kg 119.295 kg GENERAL EXAM: Alert, pleasant 63-year-old female, on room air, comfortable in no apparent distress. HEAD: Normocephalic. EYES: Drooping of the right eye. Normal reaction of pupils, equal size. NOSE: Clear with pink turbinates. THROAT: No erythema or exudates. NECK: No masses, no JVD. CHEST: No chest wall deformity. LUNGS: Equal air entry with no crackles, wheeze, rhonchi or dullness. CVS: S1 and S2 normal with no audible murmur, regular rhythm. ABDOMEN: No hepatosplenomegaly, normal bowel sounds, no guarding or rigidity. SPINE: No scoliosis or deformity SKIN: No rashes CENTRAL NERVOUS SYSTEM: No focal deficits, tone is normal in all 4 extremities. EXTREMITIES: There is no peripheral edema. No clubbing, no cyanosis. Periphe ral pulses are intact. Results - Laboratory Findings CBC and BMP: 04/15/24 03:36 04/15/24 03:36 PT/INR, D-dimer D-Dimer 0.81 mg/L FEU (<0.60) H 04/14/24 19:06 Abnormal lab findings: Abnormal Labs 04/14/24 04/14/24 04/14/24 15:41 15:41 19:06 WBC 11.5 H Hct 46.3 H Immature Gran # Neutrophils # 9.1 H Monocytes # Eosinophils # D-Dimer 0.81 H Chloride 110 H Carbon Dioxide 20 L BUN 18 H BUN/Creatinine Ratio Glucose 181 H Total Bilirubin Albumin/Globulin Ratio 04/15/24 04/15/24 03:36 03:36 WBC 11.99 H Hct Immature Gran # 0.05 H Neutrophils # 7.87 H Monocytes # 1.07 H Eosinophils # 0.01 L D-Dimer Chloride Carbon Dioxide BUN BUN/Creatinine Ratio 20.50 H Glucose Total Bilirubin 0.2 L Albumin/Globulin Ratio 1.56 L - Diagnostic Findings Chest x-ray: image reviewed CT scan - chest: image reviewed Assessment and Plan Assessment: Post viral cough secondary to COVID-19 diagnosed on 04/06/2024. Chest x-ray shows no acute process. CT angiogram ruled out pulmonary embolism Recent diagnosis in November 2023 of myasthenia gravis being followed by Dr. Dumont at [facility], currently on prednisone Alopecia Pretension Hyperlipidemia Psoriasis Non-smoker Plan: The patient was seen and evaluated Chest x-ray, CT angiogram, labs and medications reviewed Stable and on room air Continue a prednisone taper starting at 40 mg daily for 4 days Titrate down to her current dose of 10 mg daily Could be discharged home from the pulmonary standpoint Follow-up closely with her myasthenia gravis physician I have personally seen and examined the patient, performed the documentation and the assessment and plan as written. Number of minutes spent on the visit: 20 Dictation was produced using [employer] dictation software. Please excuse any grammatical, word or spelling errors.
[2024-04-15] MEDS: ATORVASTATIN 10 MG TAB PO SCH (19:42)
[2024-04-15 20:00] VITALS: RESP 16
[2024-04-16] MEDS ORDERED: TIOTROPIUM 2.5 MCG INHALER INHALATION SCH (08:00)
[2024-04-16] MEDS: SYMBICORT 160-4.5 MCG INHALER INHALATION SCH (09:07)
[2024-04-16] MEDS: ALBUTEROL HFA INHALER INHALATION PRN (09:07)
--- NOTE | 2024-04-16 11:32 | P.HPIM ---
History of Present Illness H&P Date: 04/14/24 Chief Complaint: Cough/shortness of breath 63-year-old female with a past medical history significant of myasthenia gravis, hypertension, hyperlipidemia presenting to the ER with a cough and shortness of breath. Patient states 1 week ago she was diagnosed with COVID. She was started on Trelegy, Tessalon Perles, albuterol inhaler and prednisone by PCP. She states she is having difficulty controlling cough and was sent to ER for further evaluation. No fevers. No chest pain. Chest x-ray shows no evidence of acute pulmonary disease. White count 11.9. Hemoglobin 13.6. Platelets 265. Sodium 142. Potassium 4.6. Bicarb 24. BUN 21. Creatinine 1.0. D-dimer 0.81. CT angiogram is negative for pulmonary embolism. Review of Systems REVIEW OF SYSTEMS: CONSTITUTIONAL: No fever, no malaise, no fatigue. HEENT: No recent visual problems or hearing problems. Denied any sore throat. CARDIOVASCULAR: No chest pain, orthopnea, PND, no palpitations, no syncope. PULMONARY: No shortness of breath, no cough, no hemoptysis. GASTROINTESTINAL: No diarrhea, no nausea, no vomiting, no abdominal pain. NEUROLOGICAL: No headaches, no weakness, no numbness. HEMATOLOGICAL: Denies any bleeding or petechiae. GENITOURINARY: Denies any burning micturition, frequency, or urgency. MUSCULOSKELETAL/RHEUMATOLOGICAL: Denies any joint pain, swelling, or any muscle pain. ENDOCRINE: Denies any polyuria or polydipsia. The rest of the 14-point review of systems is negative. Past Medical History Past Medical History: Chest Pain / Angina, Hyperlipidemia, Hypertension, Skin Disorder Additional Past Medical History / Comment(s): Alopecia, PSORIASIS, MYASTHENIA GRAVIS History of Any Multi-Drug Resistant Organisms: None Reported Past Surgical History: Hysterectomy, Orthopedic Surgery Additional Past Surgical History / Comment(s): SX TO REPAIR HIATAL HERNIA, LT LEG SX R/T SEVERE CUT, RT HAND GANGLION CYST EXC. Past Anesthesia/Blood Transfusion Reactions: No Reported Reaction Additional Past Anesthesia/Blood Transfusion Reaction / Comment(s): no blood t ransfusion Past Psychological History: Depression Smoking Status: Never smoker Past Alcohol Use History: Occasional Past Drug Use History: None Reported - Past Family History Brother(s) Family Medical History: Cancer Additional Family Medical History / Comment(s): liver, also had brother with colon cancer Medications and Allergies Home Medications Medication Instructions Recorded Confirmed Type Simvastatin [Zocor] 20 mg PO HS 03/16/14 04/14/24 History Ergocalciferol [Vitamin D2 50,000 unit PO SUWE 04/08/15 04/14/24 History (DRISDOL)] predniSONE 10 mg PO W/BRKFST 03/02/24 04/14/24 History Albuterol Sulfate [Albuterol 2 puff INHALATION RT-Q4H PRN 04/14/24 04/14/24 History Sulfate Hfa] Azithromycin [Zithromax Z Pack] See Taper PO DAILY 04/14/24 04/14/24 History Benzonatate [Tessalon Perle] 200 mg PO TID 04/14/24 04/14/24 History Fluticasone/Umeclidin/Vilanter 1 puff INHALATION RT-DAILY 04/14/24 04/14/24 History [Trelegy Ellipta 200-62.5-25] Allergies Allergy/AdvReac Type Severity Reaction Status Date / Time No Known Allergies Allergy Verified 04/14/24 15:09 Physical Exam Vitals: Vital Signs Temp Pulse Resp BP Pulse Ox 04/14/24 19:30 19 04/14/24 18:23 97.8 F 97 17 135/84 97 04/14/24 15:10 98.2 F 114 H 20 126/90 96 Intake and Output 04/14/24 04/14/24 04/14/24 06:59 14:59 22:59 Other: Weight 119.295 kg GENERAL EXAM: Alert, pleasant 63-year-old female, on room air, comfortable in no apparent distress. HEENT: Normocephalic : Drooping of the right eye. Normal reaction of pupils, equal size. NOSE: Clear with pink turbinates. THROAT: No erythema or exudates. NECK: No masses, no JVD. CHEST: No chest wall deformity. LUNGS: Equal air entry with no crackles, wheeze, rhonchi or dullness. CVS: S1 and S2 normal with no audible murmur, regular rhythm. ABDOMEN: No hepatosplenomegaly, normal bowel sounds, no guarding or rigidity. SPINE: No scoliosis or deformity SKIN: No rashes CENTRAL NERVOUS SYSTEM: No focal deficits, tone is normal in all 4 extremities. EXTREMITIES: There is no peripheral edema. No clubbing, no cyanosis. Peripheral pulses are intact. Results CBC & Chem 7: 04/15/24 03:36 04/15/24 03:36 Labs: Abnormal Lab Results - Last 24 Hours (Table) 04/14/24 04/14/24 04/14/24 Range/Units 15:41 15:41 19:06 WBC 11.5 H (3.8-10.6) k/uL Hct 46.3 H (34.0-46.0) % Neutrophils # 9.1 H (1.3-7.7) k/uL D-Dimer 0.81 H (<0.60) mg/L FEU Chloride 110 H (98-107) mmol/L Carbon Dioxide 20 L (22-30) mmol/L BUN 18 H (7-17) mg/dL Glucose 181 H (74-99) mg/dL Assessment and Plan Assessment: 1. COVID-19 infection with persistent cough and shortness of breath -Patient was diagnosed with COVID on 04/06/2024; continues to have shortness of breath and persistent cough -Chest x-ray and CTA chest is negative -Patient is currently on oral steroids and bronchodilators; patient remains on Symbicort -- Symptomatic treatment with antitussives Consult pulmonary 2. Myasthenia gravis --Patient reports intolerance to Mestinon and is currently on prednisone; we will continue with current dose 3. Hyperlipidemia; simvastatin 20 mg daily 4. Vitamin D deficiency; vitamin D 50,000 units biweekly DVT prophylaxis SCDs; CODE STATUS; full code
--- NOTE | 2024-04-16 12:54 | P.PN ---
Subjective Progress Note Date: 04/16/24 This ia a pleasant 63-year-old female patient with a known history of myasthenia gravis, hypertension, hyperlipidemia, alopecia, non-smoker who was diagnosed with COVID-19 infection 9 days ago. She had ongoing issues with a post-COVID cough and was treated with Trelegy, Tessalon Perles and albuterol HFA by her PCP without much improvement. She presented here to the emergency room yesterday for the same. No shortness of breath, no fever, no chills. No GI upset. No hemoptysis. Chest x-ray shows no evidence of acute pulmonary disease. White count 11.9. Hemoglobin 13.6. Platelets 265. Sodium 142. Potassium 4.6. Bicarb 24. BUN 21. Creatinine 1.0. D-dimer 0.81. She is seen today in consu ltation on the regular medical floor. She is currently resting comfortably in bed. Awake and alert in no acute distress. Maintaining O2 saturations in the 90s on room air. The patient is seen today April 16, 2024 in follow-up on the regular medical floor. She is currently sitting up in bed. Awake and alert in no acute distress. Maintaining good O2 saturations in the 90s on room air. She is feeling quite a bit better. She is continued on prednisone 40 mg daily. Remains on Symbicort, albuterol, Spiriva. Objective - Vital Signs Vital signs: Vital Signs Temp 97.7 F 04/16/24 07:22 Pulse 75 04/16/24 07:22 Resp 16 04/16/24 07:22 BP 140/85 04/16/24 07:22 Pulse Ox 96 04/16/24 07:22 FiO2 Intake & Output 04/15/24 04/16/24 04/16/24 18:59 06:59 18:59 Other: # Voids 2 - Exam GENERAL EXAM: Alert, pleasant 63-year-old female, sitting up in bed, on room air, in no apparent distress. HEAD: Normocephalic. EYES: Drooping of the right eye. Normal reaction of pupils, equal size. NOSE: Clear with pink turbinates. THROAT: No erythema or exudates. NECK: No masses, no JVD. CHEST: No chest wall deformity. LUNGS: Equal air entry with no crackles, wheeze, rhonchi or dullness. CVS: S1 and S2 normal with no audible murmur, regular rhythm. ABDOMEN: No hepatosplenomegaly, normal bowel sounds, no guarding or rigidity. SPINE: No scoliosis or deformity SKIN: No rashes CENTRAL NERVOUS SYSTEM: No focal deficits, tone is normal in all 4 extremities. EXTREMITIES: There is no peripheral edema. No clubbing, no cyanosis. Peripheral pulses are intact. - Labs CBC & Chem 7: 04/15/24 03:36 04/15/24 03:36 Assessment and Plan Assessment: Post viral cough secondary to COVID-19 diagnosed on 04/06/2024. Chest x-ray shows no acute process. CT angiogram ruled out pulmonary embolism Recent diagnosis in November 2023 of myasthenia gravis being followed by Dr. Dumont at [facility], currently on prednisone Alopecia Pretension Hyperlipidemia Psoriasis Non-smoker Plan: The patient was seen and evaluated Medications reviewed Stable and on room air Continue prednisone taper starting at 40 mg daily for 4 days Titrate down to her current dose of 10 mg daily Cleared for discharge Follow-up closely with her myasthenia gravis physician I have personally seen and examined the patient, performed the documentation and the assessment and plan as written. Number of minutes spent on the visit: 10 Dictation was produced using [employer] dictation software. Please excuse any grammatical, word or spelling errors.
--- NOTE | 2024-04-16 13:32 | P.PN ---
Subjective Progress Note Date: 04/15/24 63-year-old female with a past medical history significant of myasthenia gravis, hypertension, hyperlipidemia presenting to the ER with a cough and shortness of breath. Patient states 1 week ago she was diagnosed with COVID. She was started on Trelegy, Tessalon Perles, albuterol inhaler and prednisone by PCP. She states she is having difficulty controlling cough and was sent to ER for further evaluation. No fevers. No chest pain. Chest x-ray shows no evidence of acute pulmonary disease. White count 11.9. Hemoglobin 13.6. Platelets 265. Sodium 142. Potassium 4.6. Bicarb 24. BUN 21. Creatinine 1.0. D-dimer 0.81. CT angiogram is negative for pulmonary embolism. -Patient has been placed on increased dose of prednisone by pulmonary service; recommending neurology consultation Objective - Vital Signs Vital signs: Vital Signs Temp 97.6 F 04/15/24 07:30 Pulse 80 04/15/24 07:30 Resp 16 04/15/24 07:30 BP 137/82 04/15/24 07:30 Pulse Ox 93 L 04/15/24 07:30 FiO2 Intake & Output 04/14/24 04/15/24 04/15/24 18:59 06:59 18:59 Weight 119.295 kg 119.295 kg Other: Voiding Method Toilet # Voids 2 - Exam GENERAL EXAM: Alert, pleasant 63-year-old female, on room air, comfortable in no apparent distress. HEENT: Normocephalic : Drooping of the right eye. Normal reaction of pupils, equal size. NOSE: Clear with pink turbinates. THROAT: No erythema or exudates. NECK: No masses, no JVD. CHEST: No chest wall deformity. LUNGS: Equal air entry with no crackles, wheeze, rhonchi or dullness. CVS: S1 and S2 normal with no audible murmur, regular rhythm. ABDOMEN: No hepatosplenomegaly, normal bowel sounds, no guarding or rigidity. SPINE: No scoliosis or deformity SKIN: No rashes CENTRAL NERVOUS SYSTEM: No focal deficits, tone is normal in all 4 extremities. EXTREMITIES: There is no peripheral edema. No clubbing, no cyanosis. Periphe ral pulses are intact. - Labs CBC & Chem 7: 04/15/24 03:36 04/15/24 03:36 Labs: Abnormal Lab Results - Last 24 Hours (Table) 04/14/24 04/14/24 04/14/24 Range/Units 15:41 15:41 19:06 WBC 11.5 H (3.8-10.6) k/uL Hct 46.3 H (34.0-46.0) % Immature Gran # (0.00-0.04) X 10*3/uL Neutrophils # 9.1 H (1.3-7.7) k/uL Monocytes # (0.20-1.00) X 10*3/uL Eosinophils # (0.04-0.35) X 10*3/uL D-Dimer 0.81 H (<0.60) mg/L FEU Chloride 110 H (98-107) mmol/L Carbon Dioxide 20 L (22-30) mmol/L BUN 18 H (7-17) mg/dL BUN/Creatinine Ratio (12.00-20.00) Ratio Glucose 181 H (74-99) mg/dL Total Bilirubin (0.3-1.2) mg/dL Albumin/Globulin Ratio (1.60-3.17) Ratio 04/15/24 04/15/24 Range/Units 03:36 03:36 WBC 11.99 H (3.8-10.6) k/uL Hct (34.0-46.0) % Immature Gran # 0.05 H (0.00-0.04) X 10*3/uL Neutrophils # 7.87 H (1.3-7.7) k/uL Monocytes # 1.07 H (0.20-1.00) X 10*3/uL Eosinophils # 0.01 L (0.04-0.35) X 10*3/uL D-Dimer (<0.60) mg/L FEU Chloride (98-107) mmol/L Carbon Dioxide (22-30) mmol/L BUN (7-17) mg/dL BUN/Creatinine Ratio 20.50 H (12.00-20.00) Ratio Glucose (74-99) mg/dL Total Bilirubin 0.2 L (0.3-1.2) mg/dL Albumin/Globulin Ratio 1.56 L (1.60-3.17) Ratio Assessment and Plan Assessment: 1. COVID-19 infection with persistent cough and shortness of breath -Patient was diagnosed with COVID on 04/06/2024; continues to have shortness of breath and persistent cough -Chest x-ray and CTA chest is negative -Patient is currently on oral steroids and bronchodilators; patient remains on Symbicort -- Symptomatic treatment with antitussives Consult pulmonary 2. Myasthenia gravis --Patient reports intolerance to Mestinon and is currently on prednisone; we will continue with current dose 3. Hyperlipidemia; simvastatin 20 mg daily 4. Vitamin D deficiency; vitamin D 50,000 units biweekly DVT prophylaxis SCDs; CODE STATUS; full code
[2024-04-16 13:42] VITALS: BP 152/79; PULSE 100; TEMP 97.8
--- NOTE | 2024-04-22 11:29 | P.CNNES ---
History of Present Illness Consult date: 04/16/24 Requesting physician: Albert Rae Reason for Consult: Myasthenia gravis History of Present Illness: This is a telemedicine neurology consultation performed today on 04/16/2024, in coordination with Trini Fowler. Patient is a 63-year-old right-handed female came to the hospital 2 days ago on 04/14/2024 at 2:38 PM for COVID infection, and cough. Patient has history of myasthenia gravis. Neurology was consulted. Patient states that she was diagnosed with myasthenia gravis on 12/02/2023, when she had presented with droopy eyelid, difficulty breathing and weakness of the muscles of arms and legs. Her symptoms had been present off-and-on for about 10 years prior until she was diagnosed. Patient claims that she is antibody positive for MG (results not available in [employer] system). Patient initially was tried on Mestinon, but developed significant diarrhea, vomiting therefore stopped it. Patient was placed on prednisone 5 mg for which she stayed for few months and then the dose was increased to 10 mg about a month ago. Even before patient suffered from COVID, she was having some breathing issues, but has developed cough now. Patient also has developed dysphagia, for which she had undergone esophageal dilation about 2 to 3 weeks ago. She has esophageal dilation performed 3 times in the past few months. Patient states that she has difficulty with swallowing solids like meat or hard items, but she is fine with liquids. Patient has developed some slurred speech for the last 2 to 3 weeks. Denies any diplopia. She does have a history of difficulty breathing, but has got worse. She denies any worsening of weakness lately, but she uses handrails. She does not lift heavy stuff. Patient states her symptoms have got worse slightly since she had suffered from COVID. Patient states that she denies any obvious dysarthria, but sometimes she slurs her words. She has right ptosis, and believes that in the morning she can "barely open it", but improves during middle of the day, but gets worse again in the late evening. Patient's blood tests shows WBC 11.9, hemoglobin 13.6 platelets 265. CMP is normal. Chest x-ray shows no evidence for acute pulmonary disease. CT of the chest revealed no evidence of pulmonary embolism. Small hiatal hernia. Hepatic steatosis. Patient's last A1c 5.5 on 10/28/2021. KEISHA negative, rheumatoid factor negative. Patient's home medications include simvastatin 20 minute program, vitamin D, prednisone 10 mg daily, azithromycin and inhalers. Patient denies diabetes or hypertension. She has never smoked, does not drink, no marijuana. Review of Systems All pertinent positive and negative review of systems mentioned in the HPI, otherwise unremarkable. Past Medical History Past Medical History: Chest Pain / Angina, Hyperlipidemia, Hypertension, Skin Disorder Additional Past Medical History / Comment(s): Alopecia, PSORIASIS, MYASTHENIA GRAVIS. History of Any Multi-Drug Resistant Organisms: None Reported Past Surgical History: Hernia Repair, Hysterectomy, Orthopedic Surgery Additional Past Surgical History / Comment(s): SX TO REPAIR HIATAL HERNIA, L LEG SX R/T SEVERE CUT, R HAND GANGLION CYST EXC. Past Anesthesia/Blood Transfusion Reactions: No Reported Reaction Additional Past Anesthesia/Blood Transfusion Reaction / Comment(s): no blood transfusion. Past Psychological History: Depression Smoking Status: Never smoker Past Alcohol Use History: Occasional Past Drug Use History: None Reported - Past Family History Brother(s) Family Medical History: Cancer Additional Family Medical History / Comment(s): liver, also had brother with colon cancer. Medications and Allergies Home Medications Medication Instructions Recorded Confirmed Type Simvastatin [Zocor] 20 mg PO HS 03/16/14 04/14/24 History Ergocalciferol [Vitamin D2 50,000 unit PO SUWE 04/08/15 04/14/24 History (DRISDOL)] Albuterol Sulfate [Albuterol 2 puff INHALATION RT-Q4H PRN 04/14/24 04/14/24 History Sulfate Hfa] Azithromycin [Zithromax Z Pack] See Taper PO DAILY 04/14/24 04/14/24 History Benzonatate [Tessalon Perle] 200 mg PO TID 04/14/24 04/14/24 History Fluticasone/Umeclidin/Vilanter 1 puff INHALATION RT-DAILY 04/14/24 04/14/24 History [Trelegy Ellipta 200-62.5-25] predniSONE 10 mg PO W/BRKFST #0 04/16/24 04/14/24 Rx predniSONE [Deltasone] 40 mg PO W/BRKFST #8 tab 04/16/24 Rx Allergies Allergy/AdvReac Type Severity Reaction Status Date / Time No Known Allergies Allergy Verified 04/14/24 15:09 Physical Examination - Vital Signs Vital Signs: Vital Signs Temp Pulse Resp BP BP Pulse Ox 04/16/24 07:22 97.7 F 75 16 140/85 96 04/16/24 02:00 97.5 F L 89 135/84 94 L 04/15/24 20:40 142/85 04/15/24 19:59 97.7 F 80 16 160/78 94 L 04/15/24 13:23 97.9 F 86 20 143/82 93 L Intake and Output 04/15/24 04/16/24 04/16/24 22:59 06:59 14:59 Other: # Voids 2 Patient is a late middle-aged female, very pleasant, in no acute distress. Patient is alert awake oriented to time place and person. Speech and language functions are normal. Patient can name and repeat very well. No aphasia or dysarthria. No slurring of speech noted with prolonged speaking. Attention, concentration and fund of knowledge is adequate. Patient does have alopecia. On cranial nerve examination, pupils are equal, round and reacting to light, visual don are full on confrontation, with no neglect on double simultaneous stimulation. Extraocular muscles are intact with no nystagmus. Patient does have mild right ptosis. Face is symmetric, tongue protrudes to the midline. Palatal elevation and sensation normal, hearing and shoulder shrug normal, facial sensation normal. Patient can whistle and puff upper cheeks. Patient has a very strong cough noticeable. No obvious drooling. On muscle strength testing, there is no pronator drift and the strength is symmetric, deltoid 4+, biceps 5, triceps 5, cocoa roaster 5, hip flexion 4, ankle dorsiflexion 5. Deep tendon reflexes are symmetric 2 in the biceps, knees bilaterally. Plantars downgoing. Sensory to touch is equal with no neglect on double simultaneous stimulation. Cerebellar function showed no ataxia for [id number] testing. No dysdiadochokinesia. No ataxia for [id number] testing on either side. Tone and bulk of muscles normal. Gait deferred.. On general examination, there is no carotid bruit or murmur, S1-S2 audible. Chest is clear on consultation. Abdomen is soft nontender. No organomegaly, bowel sounds present. Peripheral pulses are present. No peripheral edema. Results - Laboratory Findings CBC and BMP: 04/15/24 03:36 04/15/24 03:36 Abnormal Lab Findings: Abnormal Labs 04/14/24 04/14/24 04/14/24 15:41 15:41 19:06 WBC 11.5 H Hct 46.3 H Immature Gran # Neutrophils # 9.1 H Monocytes # Eosinophils # D-Dimer 0.81 H Chloride 110 H Carbon Dioxide 20 L BUN 18 H BUN/Creatinine Ratio Glucose 181 H Total Bilirubin Albumin/Globulin Ratio 04/15/24 04/15/24 03:36 03:36 WBC 11.99 H Hct Immature Gran # 0.05 H Neutrophils # 7.87 H Monocytes # 1.07 H Eosinophils # 0.01 L D-Dimer Chloride Carbon Dioxide BUN BUN/Creatinine Ratio 20.50 H Glucose Total Bilirubin 0.2 L Albumin/Globulin Ratio 1.56 L Assessment and Plan Assessment: * Myasthenia gravis * Acute COVID infection * Hypertension * Hyperlipidemia * Alopecia Plan: * Patient has diagnosis of myasthenia gravis. Patient is currently on prednisone 10 mg daily, somewhat stable. She has recently developed acute COVID infection, therefore has developed slight worsening of her symptoms. Patient still has very strong cough, and her examination appears fairly normal. No obvious clinical evidence of cranial nerve dysfunction or myasthenic crisis. * Patient is being discharged today. Patient will follow-up with her neurologist, who knows her from before. If there is any definitive objective weakness, then she could be a candidate for IVIG, which can be done as an outpatient. At this time, patient appears stable to be discharged and follow- up with the neurologist. Patient was strongly encouraged to return to the hospital if she has any worsening of her condition. * Thank you for the consultation.
--- NOTE | 2024-05-07 18:27 | P.DS ---
Providers Date of admission: 04/14/24 17:51 Expected date of discharge: 04/16/24 Attending physician: Jhonny Mcnamara Consults: 04/14/24 17:51 Consult Physician Routine Consulting Provider: Jairo Posey Consult Reason/Comments: sob Do you want consulting provider notified?: Yes 04/16/24 08:55 Consult Physician Routine Consulting Provider: Jere Martinez Consult Reason/Comments: mysthenia gravis Do you want consulting provider notified?: Yes Primary care physician: Piedad Camp [facility] Course: 63-year-old female with a past medical history significant of myasthenia gravis, hypertension, hyperlipidemia presenting to the ER with a cough and shortness of breath. Patient states 1 week ago she was diagnosed with COVID. She was started on Trelegy, Tessalon Perles, albuterol inhaler and prednisone by PCP. She states she is having difficulty controlling cough and was sent to ER for further evaluation. No fevers. No chest pain. Chest x-ray shows no evidence of acute pulmonary disease. White count 11.9. Hemoglobin 13.6. Platelets 265. Sodium 142. Potassium 4.6. Bicarb 24. BUN 21. Creatinine 1.0. D-dimer 0.81. CT angiogram is negative for pulmonary embolism. -Patient has been placed on increased dose of prednisone by pulmonary service; recommending neurology consultati Assessment and Plan Assessment: 1. COVID-19 infection with persistent cough and shortness of breath -Patient was diagnosed with COVID on 04/06/2024; continues to have shortness of breath and persistent cough -Chest x-ray and CTA chest is negative -Patient is currently on oral steroids and bronchodilators; patient remains on Symbicort -- Symptomatic treatment with antitussives Consult pulmonary 2. Myasthenia gravis --Patient reports intolerance to Mestinon and is currently on prednisone; we will continue with current dose 3. Hyperlipidemia; simvastatin 20 mg daily 4. Vitamin D deficiency; vitamin D 50,000 units biweekly DVT prophylaxis SCDs; CODE STATUS; full code Patient remains stable and is cleared for discharge by neurology Patient Condition at Discharge: Fair Plan - Discharge Summary Discharge Rx Participant: Yes New Discharge Prescriptions: Continue Simvastatin [Zocor] 20 mg PO HS Ergocalciferol [Vitamin D2 (DRISDOL)] 50,000 unit PO SUWE Albuterol Sulfate [Albuterol Sulfate Hfa] 2 puff INHALATION RT-Q4H PRN PRN Reason: Shortness Of Breath Fluticasone/Umeclidin/Vilanter [Trelegy Ellipta 200-62.5-25] 1 puff INHALATION RT-DAILY PRN PRN Reason: Shortness Of Breath predniSONE 10 mg PO W/BRKFST #0 Discharge Medication List Simvastatin [Zocor] 20 mg PO HS 03/16/14 [History] Ergocalciferol [Vitamin D2 (DRISDOL)] 50,000 unit PO SUWE 04/08/15 [History] Albuterol Sulfate [Albuterol Sulfate Hfa] 2 puff INHALATION RT-Q4H PRN 04/14/24 [History] Fluticasone/Umeclidin/Vilanter [Trelegy Ellipta 200-62.5-25] 1 puff INHALATION RT-DAILY PRN 04/14/24 [History] predniSONE 10 mg PO W/BRKFST #0 04/16/24 [Rx] Follow up Appointment(s)/Referral(s): Piedad Camp DO [Primary Care Provider] - 1-2 days Patient Instructions/Handouts: Myasthenia Gravis (DC), COVID-19 (Coronavirus Disease 2019) (DC) Discharge Disposition: HOME SELF-CARE
== END 2024-04-16 14:43 | disposition home or self-care (01) ==
LOC: EC 14:38 → 6NMEDSUR 17:51 → 4SSUR 20:21
PROVIDERS: ADMIT Hospitalist; ATTEND Hospitalist
DX: U07.1 COVID-19 (principal); G70.01 Myasthenia gravis with (acute) exacerbation; J45.901 Unspecified asthma with (acute) exacerbation; R00.0 Tachycardia, unspecified; E78.5 Hyperlipidemia, unspecified; E55.9 Vitamin D deficiency, unspecified; L65.9 Nonscarring hair loss, unspecified; L40.9 Psoriasis, unspecified; K76.0 Fatty (change of) liver, not elsewhere classified; K44.9 Diaphragmatic hernia without obstruction or gangrene; R13.10 Dysphagia, unspecified; I10 Essential (primary) hypertension; F32.A Depression, unspecified; Z79.52 Long term (current) use of systemic steroids; Z79.899 Other long term (current) drug therapy
CPT/HCPCS: 99284; 36415; 94640 ×2; 85379; 80053 ×2; 83735; 84100; 85025 ×2; 71046; 71275; G0378 ×4; J7512 ×2; Q9967

== ENCOUNTER 2024-05-03 07:25 | Emergency (ER) | payer BC ==
[2024-05-03 07:45] VITALS: TEMP 97.3
--- NOTE | 2024-05-03 08:18 | ED ---
General Adult HPI - General Chief complaint: Extremity Injury, Lower Stated complaint: both leg pain Time Seen by Provider: 05/03/24 08:17 Source: patient, family, RN notes reviewed, old records reviewed Mode of arrival: wheelchair Limitations: no limitations - History of Present Illness Initial comments: 63-year-old female with a past medical history significant of myasthenia gravis presenting to the ER with a chief complaint of bilateral calf pain. Patient states she woke up around 3:30 AM to extreme 10 out of 10 crampy/sharp calf pain. Patient states that has been making it difficult for her to walk. She reports most of her pain over the anterior aspect of bilateral lower extremities. She denies any known injuries or traumas. Patient took ibuprofen at that time which mildly helped pain. Patient denies any history of blood clots, recent travel, shortness of breath or current chest pain. Patient does mention she had a recent suicidal ideations and plans on taking sleeping pills. She denies any current plan. She does report she has been going through numerous life stressors. Denies any drug or alcohol use. No other complaints. No fevers. - Related Data Home Medications Medication Instructions Recorded Confirmed Simvastatin [Zocor] 20 mg PO HS 03/16/14 05/03/24 Ergocalciferol [Vitamin D2 50,000 unit PO SUWE 04/08/15 05/03/24 (DRISDOL)] Albuterol Sulfate [Albuterol 2 puff INHALATION RT-Q4H PRN 04/14/24 05/03/24 Sulfate Hfa] Fluticasone/Umeclidin/Vilanter 1 puff INHALATION RT-DAILY PRN 04/14/24 05/03/24 [Trelegy Ellipta 200-62.5-25] Previous Rx's Medication Instructions Recorded predniSONE 10 mg PO W/BRKFST #0 04/16/24 Allergies Allergy/AdvReac Type Severity Reaction Status Date / Time corn AdvReac Rash/Hives Verified 05/03/24 11:55 tree and shrub pollen AdvReac Rash/Hives Verified 05/03/24 11:55 tree nut [Pecan] AdvReac Rash/Hives Verified 05/03/24 11:55 Review of Systems ROS Statement: Those systems with pertinent positive or pertinent negative responses have been documented in the HPI. ROS Other: All systems not noted in ROS Statement are negative. Past Medical History Past Medical History: Chest Pain / Angina, Hyperlipidemia, Hypertension, Skin Disorder Additional Past Medical History / Comment(s): Alopecia, PSORIASIS, MYASTHENIA GRAVIS. History of Any Multi-Drug Resistant Organisms: None Reported Past Surgical History: Hernia Repair, Hysterectomy, Orthopedic Surgery Additional Past Surgical History / Comment(s): SX TO REPAIR HIATAL HERNIA, L LEG SX R/T SEVERE CUT, R HAND GANGLION CYST EXC. Past Anesthesia/Blood Transfusion Reactions: No Reported Reaction Additional Past Anesthesia/Blood Transfusion Reaction / Comment(s): no blood transfusion. Past Psychological History: Anxiety, Depression Smoking Status: Never smoker Past Alcohol Use History: Occasional Past Drug Use History: None Reported - Past Family History Brother(s) Family Medical History: Cancer Additional Family Medical History / Comment(s): liver, also had brother with colon cancer. General Exam Limitations: no limitations Course Vital Signs 05/03/24 05/03/24 05/03/24 07:40 09:45 13:15 Temperature 97.3 F L Pulse Rate 80 74 80 Respiratory 22 20 18 Rate Blood Pressure 144/89 148/98 163/91 O2 Sat by Pulse 98 95 95 Oximetry EKG Findings - EKG Comments: EKG Findings:: EKG taken 11: 17 showing a sinus rhythm with sinus arrhythmia. No ST segment or T wave abnormalities. Ventricular rate 74, AL interval 129, QRS duration 87, QT/QTc 379/406. Medical Decision Making - Medical Decision Making Was pt. sent in by a medical professional or institution (, PA, [employer], urgent care, hospital, or residential...) When possible be specific @ -No Did you speak to anyone other than the patient for history (EMS, parent, family, police, friend...)? What history was obtained from this source @ -No Did you review nursing and triage notes (agree or disagree)? Why? @ -I reviewed and agree with nursing and triage notes Were old charts reviewed (outside hosp., previous admission, EMS record, old EKG, old radiological studies, urgent care reports/EKG's, residential records)? Report findings @ -No old charts were reviewed Differential Diagnosis (chest pain, altered mental status, abdominal pain women, abdominal pain men, vaginal bleeding, weakness, fever, dyspnea, syncope, headache, dizziness, GI bleed, back pain, seizure, CVA, palpatations, mental health, musculoskeletal)? @ -Differential Musculoskeletal:Muscular strain, contusion, ligament sprain, fracture, arthritis, septic arthritis, bursitis, cellulitis, muscle spasm, nerve compression, DVT, arterial occlusion, herpes zoster, electrolyte abnormality, tumor.... This is not meant to be in all inclusive list EKG interpreted by me (3pts min.). @ -As above X-rays interpreted by me (1pt min.). @ -None done CT interpreted by me (1pt min.). @ -None done U/S interpreted by me (1pt. min.). @ -Bilateral lower extremity ultrasound negative for acute evidence of DVT. What testing was considered but not performed or refused? (CT, X-rays, U/S, labs)? Why? @ -None What meds were considered but not given or refused? Why? @ -None Did you discuss the management of the patient with other professionals (professionals i.e. , PA, [employer], lab, RT, psych nurse, social professionals, armature balancer, teacher, corporate compliance officer, caseworker protective services)? Give summary @ -No Was smoking cessation discussed for >3mins.? @ -No Was critical care preformed (if so, how long)? @ -No Were there social determinants of health that impacted care today? How? (Homelessness, low income, unemployed, alcoholism, drug addiction, transportation, low edu. Level, literacy, decrease access to med. care, intermediate, rehab)? @ -No Was there de-escalation of care discussed even if they declined (Discuss DNR or withdrawal of care, Hospice)? DNR status @ -No What co-morbidities impacted this encounter? (DM, HTN, Smoking, COPD, CAD, Cancer, CVA, ARF, Chemo, Hep., AIDS, mental health diagnosis, sleep apnea, morbid obesity)? @ -Myasthenia gravis Was patient admitted / discharged? Hospital course, mention meds given and route, prescriptions, significant lab abnormalities, going to OR and other pertinent info. @ -Discharge. 63-year-old female presented to the ER with a chief complaint of bilateral calf pain. History and physical exam completed. Vital stable. Patient no signs of acute distress nontoxic-appearing. Bilateral lower extremities neurovascular intact. There is calf tenderness present. No overlying skin changes.lower extremity strength is equal bilaterally. Patient is able to ambulate. Laboratory studies obtained showing a WBC of 11.8 with a left shift. Hyperkalemia at 5.7 which resolved after 500mL bolus to 4.6. Lactic acid 2.1 likely related to dehydration. EKG NSR. Ischemia. No evidence of infarct. As patient complained of suicidal ideation with plan recently patient was evaluated by EPS, [facility], who [facility]. Patient given symptomatic control in the ER with IV Toradol, Dilaudid and IV fluids. Upon reevaluation, patient resting comfortably exam room no signs of acute distress. Patient is stable for discharge at this time outpatient follow-up. Strict return parameters discussed. Patient discharged in stable condition with follow-up to PCP. Patient verbally expressed understanding and agreement with care plan. Case discussed with ED attending, Dr. Camp. Undiagnosed new problem with uncertain prognosis? @ -No Drug Therapy requiring intensive monitoring for toxicity (Heparin, Nitro, Insulin, Cardizem)? @ -No Were any procedures done? @ -No Diagnosis/symptom? @ -Calf pain Acute, or Chronic, or Acute on Chronic? @ -Acute Uncomplicated (without systemic symptoms) or Complicated (systemic symptoms)? @ -Uncomplicated Side effects of treatment? @ -No Exacerbation, Progression, or Severe Exacerbation? @ -No Poses a threat to life or bodily function? How? (Chest pain, [place], [place], pneumonia, PE, COPD, DKA, ARF, appy, cholecystitis, CVA, Diverticulitis, Homicidal, Suicidal, threat to staff... and all critical care pts) @ -No - Lab Data Result diagrams: 05/03/24 09:45 05/03/24 11:44 Lab Results 05/03/24 05/03/24 05/03/24 Range/Units 09:45 09:45 09:45 WBC 11.8 H (3.8-10.6) k/uL RBC 5.00 (3.80-5.40) m/uL Hgb 15.4 (11.4-16.0) gm/dL Hct 49.0 H (34.0-46.0) % MCV 98.1 (80.0-100.0) fL MCH 30.8 (25.0-35.0) pg MCHC 31.4 (31.0-37.0) g/dL RDW 13.1 (11.5-15.5) % Plt Count 245 (150-450) k/uL MPV 7.9 Neutrophils % 78 % Lymphocytes % 14 % Monocytes % 6 % Eosinophils % 1 % Basophils % 0 % Neutrophils # 9.1 H (1.3-7.7) k/uL Lymphocytes # 1.7 (1.0-4.8) k/uL Monocytes # 0.7 (0-1.0) k/uL Eosinophils # 0.1 (0-0.7) k/uL Basophils # 0.0 (0-0.2) k/uL Sodium 137 (137-145) mmol/L Potassium 5.7 H (3.5-5.1) mmol/L Chloride 104 (98-107) mmol/L Carbon Dioxide 28 (22-30) mmol/L Anion Gap 5 mmol/L BUN 31 H (7-17) mg/dL Creatinine 0.87 (0.52-1.04) mg/dL Est GFR (CKD-EPI)AfAm 83 (>60 ml/min/1.73 sqM) Est GFR (CKD-EPI)NonAf 72 (>60 ml/min/1.73 sqM) Glucose 93 (74-99) mg/dL Lactic Ac Sepsis Rflx Plasma Lactic Acid Thiago 2.1 H* (0.7-2.0) mmol/L Calcium 9.7 (8.4-10.2) mg/dL Total Bilirubin 1.0 (0.2-1.3) mg/dL AST 57 H (14-36) U/L ALT 107 H (4-34) U/L Alkaline Phosphatase 117 (38-126) U/L Total Protein 7.1 (6.3-8.2) g/dL Albumin 4.1 (3.5-5.0) g/dL 05/03/24 05/03/24 Range/Units 10:23 11:44 WBC (3.8-10.6) k/uL RBC (3.80-5.40) m/uL Hgb (11.4-16.0) gm/dL Hct (34.0-46.0) % MCV (80.0-100.0) fL MCH (25.0-35.0) pg MCHC (31.0-37.0) g/dL RDW (11.5-15.5) % Plt Count (150-450) k/uL MPV Neutrophils % % Lymphocytes % % Monocytes % % Eosinophils % % Basophils % % Neutrophils # (1.3-7.7) k/uL Lymphocytes # (1.0-4.8) k/uL Monocytes # (0-1.0) k/uL Eosinophils # (0-0.7) k/uL Basophils # (0-0.2) k/uL Sodium (137-145) mmol/L Potassium 4.6 (3.5-5.1) mmol/L Chloride (98-107) mmol/L Carbon Dioxide (22-30) mmol/L Anion Gap mmol/L BUN (7-17) mg/dL Creatinine (0.52-1.04) mg/dL Est GFR (CKD-EPI)AfAm (>60 ml/min/1.73 sqM) Est GFR (CKD-EPI)NonAf (>60 ml/min/1.73 sqM) Glucose (74-99) mg/dL Lactic Ac Sepsis Rflx Y Plasma Lactic Acid Thiago (0.7-2.0) mmol/L Calcium (8.4-10.2) mg/dL Total Bilirubin (0.2-1.3) mg/dL AST (14-36) U/L ALT (4-34) U/L Alkaline Phosphatase (38-126) U/L Total Protein (6.3-8.2) g/dL Albumin (3.5-5.0) g/dL - Radiology Data Radiology results: report reviewed, image reviewed Disposition Clinical Impression: Leg pain, bilateral Disposition: HOME SELF-CARE Condition: Stable Instructions (If sedation given, give patient instructions): Leg Pain (ED) Additional Instructions: Continue taking OTC tylenol and ibuprofen for pain control. Follow-up with PCP. Return to the ER for any new or worsening symptoms. Is patient prescribed a controlled substance at d/c from ED?: No Referrals: Piedad Camp DO [Primary Care Provider] - 1-2 days Time of Disposition: 13:07
[2024-05-03] MEDS: KETOROLAC 15 MG/ML 1 ML VIAL IVP STA (09:14)
[2024-05-03 10:00] LABS: Basophils % (A) 0 %; Eosinophils # (A) 0.1 k/uL (0-0.7); Eosinophils % (A) 1 %; HGB 15.4 gm/dL (11.4-16.0); Lymphocytes # (A) 1.7 k/uL (1.0-4.8); Lymphocytes % (A) 14 %; MCH 30.8 pg (25.0-35.0); MCHC 31.4 g/dL (31.0-37.0); MCV 98.1 fL (80.0-100.0); Mean Platelet Volume 7.9; Monocytes # (A) 0.7 k/uL (0-1.0); Monocytes % (A) 6 %; Neutrophils # (A) 9.1 k/uL (1.3-7.7); Neutrophils % (A) 78 %; Platelet Count 245 k/uL (150-450); RDW 13.1 % (11.5-15.5); WBC 11.8 k/uL (3.8-10.6)
--- NOTE | 2024-05-03 10:09 | US ---
EXAMINATION TYPE: US venous doppler duplex LE BI DATE OF EXAM: 05/03/2024 9:59 AM COMPARISON: NONE CLINICAL INDICATION: Female, 63 years old with history of valentina calf pain; Pain, Pain, Swelling TECHNIQUE: The lower extremity deep venous system is examined utilizing real time linear array sonog jonathan with graded compression, color doppler sonography, and spectral doppler. SIDE PERFORMED: Bilateral FINDINGS: VESSELS IMAGED: Common Femoral Vein Deep Femoral Vein Greater Saphenous Vein * Femoral Vein Popliteal Vein Small Saphenous Vein * Proximal Calf Veins (* superficial vessels) Right Leg: Negative for DVT, Color Doppler imaging shows patency of the vessels. Spectral waveforms are within normal limits. Left Leg: Negative for DVT, Color Doppler imaging shows patency of the vessels. Spectral waveforms a re within normal limits. IMPRESSION: Bilateral lower extremity ultrasound negative for deep venous thrombosis. [facility], , 05/03/2024 10:06 AM
[2024-05-03 10:17] LABS: ALT 107 U/L (4-34); African American GFR (CKD) 83 (>60 ml/min/1.73 sqM); Anion Gap 5 mmol/L; Blood Urea Nitrogen 31 mg/dL (7-17); Calcium 9.7 mg/dL (8.4-10.2); Carbon Dioxide 28 mmol/L (22-30); Chloride 104 mmol/L (98-107); Glucose 93 mg/dL (74-99); Non-African American GFR(CKD) 72 (>60 ml/min/1.73 sqM); Sodium 137 mmol/L (137-145)
[2024-05-03 10:22] LABS: AST 57 U/L (14-36); Albumin 4.1 g/dL (3.5-5.0); Alkaline Phosphatase 117 U/L (38-126); Potassium 5.7 mmol/L (3.5-5.1); Total Protein 7.1 g/dL (6.3-8.2)
[2024-05-03] MEDS: SODIUM CHLORIDE 0.9% 500 ML 500 ML IV STA (10:46)
[2024-05-03] MEDS: HYDROmorphone 0.5 MG/0.5 ML SYRINGE IVP STA (11:53)
[2024-05-03] MEDS: SODIUM CHLORIDE 0.9% 1,000 ML IV STA (12:39)
[2024-05-03 13:29] VITALS: BP 163/91; PULSE 80; RESP 18
== END 2024-05-03 13:36 | disposition home or self-care (01) ==
LOC: EC 07:25
DX: M79.604 Pain in right leg (principal); M79.605 Pain in left leg; G70.00 Myasthenia gravis without (acute) exacerbation; Z91.018 Allergy to other foods; Z88.8 Allergy status to other drugs, medicaments and biological substances
CPT/HCPCS: 82075; 36415; 93005; 80053; 83605; 84132; 85025; 93970; 99284; 96374; 96361 ×3; 96375; J1885; J1171

== ENCOUNTER → 2024-06-28 | Outpatient (CLI) | payer BC ==
[2024-06-28 15:04] LABS: Basophils # (A) 0.03 X 10*3/uL (0.00-0.10); Basophils % (A) 0.2 %; Eosinophils # (A) 0.01 X 10*3/uL (0.04-0.35); Eosinophils % (A) 0.1 %; HCT 47.6 % (37.2-46.3); HGB 15.4 g/dL (12.0-15.0); Lymphocytes # (A) 1.87 X 10*3/uL (0.90-5.00); Lymphocytes % (A) 14.9 %; MCH 31.9 pg (27.0-32.0); MCHC 32.4 g/dL (32.0-37.0); MCV 98.6 FL (80.0-97.0); Mean Platelet Volume 11.4 FL (9.5-12.2); Monocytes # (A) 0.95 X 10*3/uL (0.20-1.00); Monocytes % (A) 7.6 %; NRBC Per 100 WBC 0 X 10*3/uL (0.00-0.01); Neutrophils # (A) 9.58 X 10*3/uL (1.80-7.70); Neutrophils % (A) 76.3 %; Platelet Count 226 X 10*3/uL (140-440); RBC 4.83 X 10*6/uL (4.10-5.20); WBC 12.55 X 10*3/uL (4.50-10.00)
[2024-06-28 16:32] LABS: ALT 68 U/L (8-44); AST 28 U/L (13-35); Albumin 4.1 g/dL (3.8-4.9); Albumin/Globulin Ratio 1.52 Ratio (1.60-3.17); Alkaline Phosphatase 126 U/L (41-126); Calcium 9.9 mg/dL (8.7-10.3); Carbon Dioxide 21.5 mmol/L (21.6-31.8); Chloride 103 mmol/L (96-109); Creatine Kinase 62 U/L (26-186); Globulin 2.7 g/dL (1.6-3.3); Glucose 142 mg/dL (70-110); Potassium 4.5 mmol/L (3.5-5.5); Sodium 139 mmol/L (135-145); Total Bilirubin 0.4 mg/dL (0.3-1.2); Total Protein 6.8 g/dL (6.2-8.2)
== END | disposition home or self-care (01) ==
LOC: LABWHC1 10:23
PROVIDERS: ATTEND Psychiatry & Neurology Neurology
DX: E53.9 Vitamin B deficiency, unspecified (principal); R53.1 Weakness; Z79.52 Long term (current) use of systemic steroids; H53.9 Unspecified visual disturbance
CPT/HCPCS: 36415; 80053; 82550; 83036; 84443; 85025

== ENCOUNTER → 2024-09-29 | Outpatient (CLI) | payer BC ==
--- NOTE | 2024-09-29 11:31 | MM ---
Reason for Exam: Screening (asymptomatic). Last screening mammogram was performed 12 month(s) ago. Patient History: Menarche at age 12. First Full-Term at age 20. Left ovary removed at age 39. Right ovary removed at age 39. Hysterectomy at age 24. Postmenopausal. Hormonal Contraceptives for 2 years from age 20 until age 22. Maternal cousin had breast cancer, age 54. Maternal aunt had breast cancer, age 54. Maternal cousin had breast cancer at or over age 50. Maternal cousin had breast cancer at or over age 50. Risk Values: Ailin 5 year model risk: 1.2%. NCI Lifetime model risk: 5.5%. Prior Study Comparison: 10/26/2016 Bilateral Screening Mammogram, [facility]. 08/26/2018 Bilateral Screening Mammogram, [facility]. 12/15/2019 Bilateral Screening Mammogram, [facility]. 08/19/2021 Bilateral Screening Mammogram, [facility]. 09/17/2022 Bilateral MG 3D screening mammo w/cad, [facility]. 09/20/2023 Bilateral MG 3D screening mammo w/cad, [facility]. Tissue Density: There are scattered areas of fibroglandular density. Findings: Analyzed By CAD. Unchanged intramammary lymph node upper outer quadrant left breast middle depth. Unchanged bilateral areas of asymmetric density. Benign vascular calcifications. There is no suspicious group of microcalcifications or new suspicious mass in either breast. Overall Assessment: Benign, BI-RAD 2 Management: Screening Mammogram of both breasts in 1 year. Patient should continue monthly self-breast exams. A clinical breast exam by your physician is recommended on an annual basis. This exam should not preclude additional follow-up of suspicious palpable abnormalities. Note on Ailin scores and lifetime risk: 1. A Ailin score greater than 3% is considered moderate risk. If this is the case, consider specialist referral to assess eligibility for a risk reducing agent. 2. If overall lifetime risk for the development of breast cancer is 20% or higher, the patient may qualify for future screening with alternating mammogram and breast MRI. [facility], , 09/29/2024 11:27 AM. Electronically signed and approved by: Mir Canela M.D. Radiologist
== END | disposition home or self-care (01) ==
LOC: RADMAMWWP 09:10
PROVIDERS: ATTEND Family Medicine
DX: Z12.31 Encounter for screening mammogram for malignant neoplasm of breast (principal); R92.323 Mammographic fibroglandular density, bilateral breasts; Z78.0 Asymptomatic menopausal state; Z80.3 Family history of malignant neoplasm of breast; Z92.0 Personal history of contraception
CPT/HCPCS: 77063; 77067

== ENCOUNTER → 2024-11-06 | Outpatient (CLI) | payer BC ==
[2024-11-06 18:12] LABS: Basophils # (A) 0.04 X 10*3/uL (0.00-0.10); Basophils % (A) 0.4 %; Eosinophils # (A) 0.16 X 10*3/uL (0.04-0.35); Eosinophils % (A) 1.7 %; HCT 45.9 % (37.2-46.3); HGB 14.5 g/dL (12.0-15.0); Lymphocytes % (A) 19.3 %; MCH 31.3 pg (27.0-32.0); MCHC 31.6 g/dL (32.0-37.0); MCV 99.1 FL (80.0-97.0); Mean Platelet Volume 10.8 FL (9.5-12.2); Monocytes # (A) 1.06 X 10*3/uL (0.20-1.00); Monocytes % (A) 11.4 %; NRBC Per 100 WBC 0 X 10*3/uL (0.00-0.01); Neutrophils # (A) 6.22 X 10*3/uL (1.80-7.70); Neutrophils % (A) 66.7 %; Platelet Count 279 X 10*3/uL (140-440); RBC 4.63 X 10*6/uL (4.10-5.20); RDW 12.1 % (11.5-14.5); WBC 9.33 X 10*3/uL (4.50-10.00)
[2024-11-06 20:17] LABS: ALT 41 U/L (8-44); AST 38 U/L (13-35); Albumin/Globulin Ratio 1.67 Ratio (1.60-3.17); Alkaline Phosphatase 121 U/L (41-126); Blood Urea Nitrogen 14.4 mg/dL (9.0-27.0); Calcium 9.6 mg/dL (8.7-10.3); Carbon Dioxide 23.6 mmol/L (21.6-31.8); Chloride 107 mmol/L (96-109); Globulin 2.4 g/dL (1.6-3.3); Glucose 117 mg/dL (70-110); Immunoglobulin M 43.8 mg/dL (40.0-280.0); Potassium 4.4 mmol/L (3.5-5.5); Sodium 143 mmol/L (135-145); Total Bilirubin 0.2 mg/dL (0.3-1.2); Total Protein 6.4 g/dL (6.2-8.2)
== END | disposition home or self-care (01) ==
LOC: LABWHC1 15:29
PROVIDERS: ATTEND Psychiatry & Neurology Neurology
DX: G70.00 Myasthenia gravis without (acute) exacerbation (principal); Z79.899 Other long term (current) drug therapy; Z51.81 Encounter for therapeutic drug level monitoring
CPT/HCPCS: 36415; 80053; 82784; 85025

== ENCOUNTER → 2024-12-05 | Outpatient (CLI) | payer BC ==
[2024-12-05 16:47] LABS: African American GFR (CKD) 80 (>60 ml/min/1.73 sqM); Blood Urea Nitrogen 17 mg/dL (7-17); Non-African American GFR(CKD) 70 (>60 ml/min/1.73 sqM)
--- NOTE | 2024-12-07 10:04 | CT ---
EXAMINATION TYPE: CT chest wo/w con DATE OF EXAM: 12/05/2024 5:24 PM COMPARISON: 04/15/2024 CLINICAL INDICATION: Female, 64 years old with history of G70.01 MYASTHENIA GRAVIS WITH (ACUTE) EXACE RBATION, myasthenia gravis TECHNIQUE: Axial images were obtained at 5 mm thick sections. Reconstructed images are reviewed on [employer] computer in the coronal plane. Contrast used:100 ml mL of Isovue 300 without and with IV Contrast, (none if empty) Oral contrast used: (none if empty) CT DLP: 1154.4 mGycm, Automated exposure control for dose reduction was used. FINDINGS: Portion of the thyroid visualized is normal. No suspicious lung nodules or focal infiltrates are present. No enlarged mediastinal or hilar adenopathy is evident. Anterior mediastinum appears normal. No brenda picious masses evident. The ascending aorta diameter at the level of the main pulmonary artery is 3.0 cm. The main pulmonary artery diameter at the bifurcation is 2.6 cm. No suspicious enhancement is e vident. No significant coronary artery calcifications. Limited CT sections are obtained through the upper abdomen. There is moderate fatty infiltration of l iver. IMPRESSION: 1. No acute intrathoracic abnormality. 2. Moderate fatty infiltration liver [facility], , 12/07/2024 10:02 AM
== END | disposition home or self-care (01) ==
LOC: RADCTMAIN 15:13
PROVIDERS: ATTEND Psychiatry & Neurology Neurology
DX: G70.01 Myasthenia gravis with (acute) exacerbation (principal); C37 Malignant neoplasm of thymus; K76.0 Fatty (change of) liver, not elsewhere classified
CPT/HCPCS: 82565; 84520; 71270; 36415; Q9967

== ENCOUNTER 2025-01-15 03:14 | Inpatient (IN) | payer BC ==
[2025-01-15] MEDS: SODIUM CHLORIDE 0.9% 1,000 ML IV STA (03:45)
[2025-01-15 04:12] LABS: Glucose,Whole Blood 146 mg/dL (70-110)
[2025-01-15 04:33] LABS: Basophils # (A) 0.03 10*3/uL (0.00-0.10); Basophils % (A) 0.2 %; Eosinophils # (A) 0.05 10*3/uL (0.04-0.35); Eosinophils % (A) 0.4 %; HCT 31.0 % (37.2-46.3); HGB 10.2 g/dL (12.0-15.0); Lymphocytes # (A) 5.28 10*3/uL (0.90-5.00); Lymphocytes % (A) 37.6 %; MCH 32.2 pg (27.0-32.0); MCHC 32.9 g/dL (32.0-37.0); MCV 97.8 fL (80.0-97.0); Monocytes # (A) 1.52 10*3/uL (0.20-1.00); Monocytes % (A) 10.8 %; Neutrophils # (A) 7.09 10*3/uL (1.80-7.70); Neutrophils % (A) 50.4 %; Platelet Count 206 10*3/uL (140-440); RBC 3.17 10*6/uL (4.10-5.20); RDW 13.2 % (11.5-14.5); WBC 14.06 10*3/uL (4.50-10.00)
[2025-01-15 04:38] LABS: ALT 31 U/L (4-34); AST 32 U/L (14-36); African American GFR (CKD) 73 (>60 ml/min/1.73 sqM); Albumin 3.0 g/dL (3.5-5.0); Alkaline Phosphatase 92 U/L (38-126); Anion Gap 7 mmol/L; Blood Urea Nitrogen 48 mg/dL (7-17); Calcium 8.5 mg/dL (8.4-10.2); Carbon Dioxide 23 mmol/L (22-30); Chloride 110 mmol/L (98-107); Creatine Kinase 113 U/L (30-135); Glucose 164 mg/dL (74-99); Magnesium 2.1 mg/dL (1.6-2.3); Non-African American GFR(CKD) 64 (>60 ml/min/1.73 sqM); Potassium 4.3 mmol/L (3.5-5.1); Sodium 140 mmol/L (137-145); Total Protein 5.7 g/dL (6.3-8.2)
[2025-01-15 04:47] LABS: NT-Pro-B-Type Natriuretic Pept 87 pg/mL
[2025-01-15] MEDS: ONDANSETRON 4 MG/2 ML VIAL IVP STA (04:55)
[2025-01-15 05:08] LABS: RSV Not Detected (Not Detectd)
--- NOTE | 2025-01-15 05:24 | ED ---
General Adult HPI - General Chief complaint: Syncope Stated complaint: syncope Time Seen by Provider: 01/15/25 03:15 Source: patient, EMS Mode of arrival: EMS - History of Present Illness Initial comments: Patient is a pleasant 64-year-old female, past medical history of myasthenia gravis, alopecia presenting today for syncope. Patient states that yesterday she was on a safari in [place], afterwards had gone to the bathroom, became lightheaded and had a syncopal episode. She believes she did hit her head. She is unsure how long she was unconscious for. She states she lost control of her bowels after the episode of syncope. Denies tongue biting. She was cleared by the paramedics at that time and returned home. Patient states this evening she got up to use the bathroom and on her way back became lightheaded and lost consciousness. She was able to get up and walk back to her bedroom and asked her to bring her to the hospital. Denies history of seizures. States this not happened to her before. She endorses mild shortness of breath but denies chest pain. Currently denies dizziness or lightheadedness. Denies recent episodes of vomiting. States she does feel slightly nauseous. Denies diarrhea, melena or hematochezia. Denies abdominal pain or leg swelling. No history of prior blood clots. Is not on blood thinners. No history of malignancy. Is not on estrogen placement therapy. Is a non-smoker. Did have a 5-hour drive to [place] this weekend but states they did get out of the car for breaks during their drive down. Denies tongue biting, denies fevers. - Related Data Home Medications Medication Instructions Recorded Confirmed Simvastatin [Zocor] 20 mg PO HS 03/16/14 01/19/25 Ergocalciferol [Vitamin D2 (1250 1,250 mcg PO SUWE 08/10/24 01/19/25 Mcg = 64548 Iu)] predniSONE 5 mg PO W/LUNCH 08/10/24 01/19/25 Potassium Gluconate 99 mg PO SUWE 01/15/25 01/19/25 Previous Rx's Medication Instructions Recorded Acetaminophen Tab [Tylenol] 650 mg PO Q6HR PRN tab 01/18/25 Allergies Allergy/AdvReac Type Severity Reaction Status Date / Time corn Allergy Rash/Hives Verified 01/19/25 11:44 tree and shrub pollen Allergy Rash/Hives Verified 01/19/25 11:44 tree nut [Pecan] Allergy Rash/Hives Verified 01/19/25 11:44 Review of Systems ROS Statement: Those systems with pertinent positive or pertinent negative responses have been documented in the HPI. ROS Other: All systems not noted in ROS Statement are negative. Past Medical History Past Medical History: Chest Pain / Angina, Hyperlipidemia, Hypertension, Skin Disorder Additional Past Medical History / Comment(s): Alopecia, PSORIASIS, MYASTHENIA GRAVIS. History of Any Multi-Drug Resistant Organisms: None Reported Past Surgical History: Hernia Repair, Hysterectomy, Orthopedic Surgery Additional Past Surgical History / Comment(s): SX TO REPAIR HIATAL HERNIA, L LEG SX R/T SEVERE CUT, R HAND GANGLION CYST EXC. Past Anesthesia/Blood Transfusion Reactions: No Reported Reaction Additional Past Anesthesia/Blood Transfusion Reaction / Comment(s): no blood transfusion. Past Psychological History: Anxiety, Depression Smoking Status: Never smoker Past Alcohol Use History: Occasional Past Drug Use History: None Reported - Past Family History Brother(s) Family Medical History: Cancer Additional Family Medical History / Comment(s): liver, also had brother with colon cancer. General Exam - General Exam Comments Initial Comments: PE: CONSTITUTIONAL: No apparent distress, well appearing SKIN: Generalized pallor, warm, dry, no jaundice, hives or petechiae EYES: Pupils are equally round, extraocular movements intact without nystagmus, clear conjunctiva, non-icteric sclera HENT: Normocephalic, atraumatic, moist mucus membranes, oropharynx clear without exudates NECK: , Full range of motion, normal appearance PULMONARY: Clear to auscultation without wheezes, rhonchi, or rales, normal excursion, no accessory muscle use and no stridor CARDIOVASCULAR: Regular rate, rhythm, normal S1 and S2. No appreciated murmurs, rubs or gallops. Strong radial pulses with intact distal perfusion. No lower extremity edema GASTROINTESTINAL: Soft, active bowel sounds throughout, non-tender, non- distended, no palpable masses, no rebound or guarding. No hepatosplenomegaly MUSCULOSKELETAL: Extremities have no gross deformity, no edema, redness, or swelling. No calf swelling NEUROLOGIC:_a/o x 3, GCS 15, normal mentation and speech. Moves all extremities x 4 without motor or sensory deficit PSYCHIATRIC:_normal mood and affect, thought process is clear and linear Course Vital Signs 01/15/25 01/15/25 01/15/25 03:15 03:18 04:00 Temperature 97.7 F Pulse Rate 122 H Respiratory 18 Rate Blood Pressure 130/77 130/77 O2 Sat by Pulse 95 83 L 87 L Oximetry 01/15/25 01/15/25 01/15/25 05:00 06:00 06:31 Temperature Pulse Rate 116 H Respiratory 22 Rate Blood Pressure 130/77 130/77 112/68 O2 Sat by Pulse 99 Oximetry 01/15/25 01/15/25 01/15/25 07:00 07:26 08:00 Temperature Pulse Rate 122 H 116 H Respiratory 20 17 Rate Blood Pressure 112/68 112/68 112/68 O2 Sat by Pulse 99 100 Oximetry 01/15/25 01/15/25 01/15/25 09:00 09:35 09:47 Temperature 98.3 F 98 F Pulse Rate 122 H 129 H 128 H Respiratory 17 18 20 Rate Blood Pressure 112/68 97/60 104/87 O2 Sat by Pulse 100 96 99 Oximetry 01/15/25 01/15/25 01/15/25 10:00 10:07 10:15 Temperature 98 F 98 F 98 F Pulse Rate 129 H 120 H 112 H Respiratory 15 20 16 Rate Blood Pressure 104/87 110/64 110/64 O2 Sat by Pulse 99 98 98 Oximetry 01/15/25 01/15/25 01/15/25 10:30 10:45 11:00 Temperature Pulse Rate 113 H 106 H 108 H Respiratory 16 16 12 Rate Blood Pressure 110/64 110/64 110/64 O2 Sat by Pulse 98 100 98 Oximetry 01/15/25 01/15/25 11:24 11:26 Temperature 998 F H 98 F Pulse Rate 110 H 110 H Respiratory 16 16 Rate Blood Pressure 111/61 111/68 O2 Sat by Pulse 98 98 Oximetry EKG Findings - EKG Comments: EKG Findings:: Sinus tachycardia, rate 116 bpm intervals within acceptable limits, normal axis, no significant ST elevations when compared to prior EKG, question 1 mm depression lead I, II, Compared to EKG from 08/10/2024, at that time EKG did show shortened VT interval which is no longer present today, question slight new ST depression lead II, avF when compared to prior EKG Medical Decision Making - Medical Decision Making Were old charts reviewed (outside hosp., previous admission, EMS record, old EKG, old radiological studies, urgent care reports/EKG's, senior care records)? Report findings @ -Medical records reviewed patient had a chest CT done , showed no acute intrathoracic abnormality, CTA showed no PE on 08/10/2024 Differential Diagnosis (chest pain, altered mental status, abdominal pain women, abdominal pain men, vaginal bleeding, weakness, fever, dyspnea, syncope, headache, dizziness, GI bleed, back pain, seizure, CVA, palpatations, mental health, musculoskeletal)? @Differential Syncope: Valvular disease, hypertrophic cardiomyopathy, pulmonary embolism, tamponade, tachycardia, bradycardia, MO, hypovolemia, hemorrhage, dissection, anemia, intracranial hemorrhage, seizure, hypoglycemia, carbon monoxide poisoning, this is not meant to be an all-inclusive list. EKG interpreted by me (3pts min.). @ -As above X-rays interpreted by me (1pt min.). None none CT interpreted by me (1pt min.). @Personally reviewed CT scan I see no evidence of pulmonary embolism agree with radiologist interpretation reviewed CT brain- no evidence of hemorrhage or mass effect U/S interpreted by me (1pt. min.). @ -None done What testing was considered but not performed or refused? (CT, X-rays, U/S, labs)? Why? @CT GI bleed study was considered however patient had no episodes of hematemesis or hematochezia in the ER, had 1 small soft dark brown stool, benign abdominal exam therefore I did not feel CT GI bleed study would provide any benefit at this point What meds were considered but not given or refused? Why? @ -None Did you discuss the management of the patient with other professionals (professionals i.e. Dr., PA, CHANNEL CEMENTER, lab, RT, psych nurse, social science teacher, hassock maker, teacher, ship's electronic warfare officer, major case detective)? Give summary @ -No Was smoking cessation discussed for >3mins.? @ -No Was critical care preformed (if so, how long)? @ -No Were there social determinants of health that impacted care today? How? (Homelessness, low income, unemployed, alcoholism, drug addiction, transportation, low edu. Level, literacy, decrease access to med. care, senior living, rehab)? @ -No Was there de-escalation of care discussed even if they declined (Discuss DNR or withdrawal of care, Hospice)? @ -No What co-morbidities impacted this encounter? (DM, HTN, Smoking, COPD, CAD, Cancer, CVA, ARF, Chemo, Hep., AIDS, mental health diagnosis, sleep apnea, morbid obesity)? @Myasthenia gravis Was patient admitted / discharged? Hospital course, mention meds given and route, prescriptions, significant lab abnormalities, going to OR and other pertinent info. @Admission -patient is a pleasant 64-year-old female presenting today for syncope. Tachycardic on arrival. On my assessment patient is overall asymptomatic, exam is unremarkable, with exception of generalized pallor. Discussed with patient plan for CTA chest given recent travel, tachycardia and syncope, labs, EKG, IV fluids. Labs remarkable for white blood cell count 14.06, hemoglobin 10.2, this is down 4 points previously from 11/06/2024, patient's hemoglobin has never been this low in the past, BUN 48, patient did have an episode of soft dark brown stool during her visit here, occult blood was obtained and was positive. (Rectal exam performed with GLENNA Singh at bedside). Patient denies any frequent NSAID use or blood thinners. She is chronically on prednisone due to her history of myasthenia gravis. Suspect this may contribute to possible upper GI bleed. Protonix were ordered. Additional IV fluids ordered. Blood pressure is stable though she is mildly tachycardic. Will plan for admission for GI consult. Patient remained tachycardic despite IV fluid resuscitation. I suspect this is secondary to blood loss anemia. Ordered 1 unit PRBCs. Patient was agreeable with plan for blood transfusion and admission. Case was discussed with Dr. Rae, who kindly accepted patient for admission Undiagnosed new problem with uncertain prognosis? @ yes possible upper GI bleed Drug Therapy requiring intensive monitoring for toxicity (Heparin, Nitro, Insulin, Cardizem)? @ -No Were any procedures done? @ -No Diagnosis/symptom? Syncope, suspect upper GI bleed Acute, or Chronic, or Acute on Chronic? Acute Uncomplicated (without systemic symptoms) or Complicated (systemic symptoms)? @Complicated Side effects of treatment? @ -Yes, suspect possible upper GI bleed secondary to chronic steroid use Exacerbation, Progression, or Severe Exacerbation? @ -No Poses a threat to life or bodily function? How? (Chest pain, USA, MO, pneumonia, PE, COPD, DKA, ARF, appy, cholecystitis, CVA, Diverticulitis, Homicidal, Suicidal, threat to staff... and all critical care pts) @ -yes - Lab Data Result diagrams: 01/18/25 07:22 01/18/25 07:22 Lab Results 01/15/25 01/15/25 01/15/25 Range/Units 03:22 03:22 03:22 WBC 14.06 H (4.50-10.00) 10*3/uL RBC 3.17 L (4.10-5.20) 10*6/uL Hgb 10.2 L (12.0-15.0) g/dL Hct 31.0 L (37.2-46.3) % MCV 97.8 H (80.0-97.0) fL MCH 32.2 H (27.0-32.0) pg MCHC 32.9 (32.0-37.0) g/dL Plt Count 206 (140-440) 10*3/uL MPV 11.9 (9.5-12.2) fL Immature Gran % (Auto) 0.6 % Neutrophils % 50.4 % Lymphocytes % 37.6 % Monocytes % 10.8 % Eosinophils % 0.4 % Basophils % 0.2 % Immature Gran # 0.09 H (0.00-0.04) 10*3/uL Neutrophils # 7.09 (1.80-7.70) 10*3/uL Lymphocytes # 5.28 H (0.90-5.00) 10*3/uL Monocytes # 1.52 H (0.20-1.00) 10*3/uL Eosinophils # 0.05 (0.04-0.35) 10*3/uL Basophils # 0.03 (0.00-0.10) 10*3/uL Manual Slide Review Performed RBC Morphology Normal PT (10.0-12.5) sec INR (<1.2) APTT (22.0-30.0) sec Sodium 140 (137-145) mmol/L Potassium 4.3 (3.5-5.1) mmol/L Chloride 110 H (98-107) mmol/L Carbon Dioxide 23 (22-30) mmol/L Anion Gap 7 mmol/L BUN 48 H (7-17) mg/dL Creatinine 0.96 (0.52-1.04) mg/dL Est GFR (CKD-EPI)AfAm 73 (>60 ml/min/1.73 sqM) Est GFR (CKD-EPI)NonAf 64 (>60 ml/min/1.73 sqM) Glucose 164 H (74-99) mg/dL POC Glucose (mg/dL) (70-110) mg/dL POC Glu Steno Pool Supervisor ID Calcium 8.5 (8.4-10.2) mg/dL Magnesium 2.1 (1.6-2.3) mg/dL Total Bilirubin 0.4 (0.2-1.3) mg/dL AST 32 (14-36) U/L ALT 31 (4-34) U/L Alkaline Phosphatase 92 (38-126) U/L Creatine Kinase 113 (30-135) U/L Troponin I 0.031 (0.000-0.034) ng/mL NT-Pro-B Natriuret Pep 87 pg/mL Total Protein 5.7 L (6.3-8.2) g/dL Albumin 3.0 L (3.5-5.0) g/dL Procalcitonin (0.02-0.50) ng/mL Stool Occult Blood (Negative) Influenza Type A (PCR) (Not Detectd) Influenza Type B (PCR) (Not Detectd) RSV (PCR) (Not Detectd) SARS-CoV-2 (PCR) (Not Detectd) 01/15/25 01/15/25 01/15/25 Range/Units 03:22 03:32 04:03 WBC (4.50-10.00) 10*3/uL RBC (4.10-5.20) 10*6/uL Hgb (12.0-15.0) g/dL Hct (37.2-46.3) % MCV (80.0-97.0) fL MCH (27.0-32.0) pg MCHC (32.0-37.0) g/dL Plt Count (140-440) 10*3/uL MPV (9.5-12.2) fL Immature Gran % (Auto) % Neutrophils % % Lymphocytes % % Monocytes % % Eosinophils % % Basophils % % Immature Gran # (0.00-0.04) 10*3/uL Neutrophils # (1.80-7.70) 10*3/uL Lymphocytes # (0.90-5.00) 10*3/uL Monocytes # (0.20-1.00) 10*3/uL Eosinophils # (0.04-0.35) 10*3/uL Basophils # (0.00-0.10) 10*3/uL Manual Slide Review RBC Morphology PT 11.0 (10.0-12.5) sec INR 1.0 (<1.2) APTT 22.3 (22.0-30.0) sec Sodium (137-145) mmol/L Potassium (3.5-5.1) mmol/L Chloride (98-107) mmol/L Carbon Dioxide (22-30) mmol/L Anion Gap mmol/L BUN (7-17) mg/dL Creatinine (0.52-1.04) mg/dL Est GFR (CKD-EPI)AfAm (>60 ml/min/1.73 sqM) Est GFR (CKD-EPI)NonAf (>60 ml/min/1.73 sqM) Glucose (74-99) mg/dL POC Glucose (mg/dL) (70-110) mg/dL POC Glu Steno Pool Supervisor ID Calcium (8.4-10.2) mg/dL Magnesium (1.6-2.3) mg/dL Total Bilirubin (0.2-1.3) mg/dL AST (14-36) U/L ALT (4-34) U/L Alkaline Phosphatase (38-126) U/L Creatine Kinase (30-135) U/L Troponin I (0.000-0.034) ng/mL NT-Pro-B Natriuret Pep pg/mL Total Protein (6.3-8.2) g/dL Albumin (3.5-5.0) g/dL Procalcitonin 0.26 (0.02-0.50) ng/mL Stool Occult Blood (Negative) Influenza Type A (PCR) Not Detected (Not Detectd) Influenza Type B (PCR) Not Detected (Not Detectd) RSV (PCR) Not Detected (Not Detectd) SARS-CoV-2 (PCR) Not Detected (Not Detectd) 01/15/25 01/15/25 Range/Units 04:07 05:59 WBC (4.50-10.00) 10*3/uL RBC (4.10-5.20) 10*6/uL Hgb (12.0-15.0) g/dL Hct (37.2-46.3) % MCV (80.0-97.0) fL MCH (27.0-32.0) pg MCHC (32.0-37.0) g/dL Plt Count (140-440) 10*3/uL MPV (9.5-12.2) fL Immature Gran % (Auto) % Neutrophils % % Lymphocytes % % Monocytes % % Eosinophils % % Basophils % % Immature Gran # (0.00-0.04) 10*3/uL Neutrophils # (1.80-7.70) 10*3/uL Lymphocytes # (0.90-5.00) 10*3/uL Monocytes # (0.20-1.00) 10*3/uL Eosinophils # (0.04-0.35) 10*3/uL Basophils # (0.00-0.10) 10*3/uL Manual Slide Review RBC Morphology PT (10.0-12.5) sec INR (<1.2) APTT (22.0-30.0) sec Sodium (137-145) mmol/L Potassium (3.5-5.1) mmol/L Chloride (98-107) mmol/L Carbon Dioxide (22-30) mmol/L Anion Gap mmol/L BUN (7-17) mg/dL Creatinine (0.52-1.04) mg/dL Est GFR (CKD-EPI)AfAm (>60 ml/min/1.73 sqM) Est GFR (CKD-EPI)NonAf (>60 ml/min/1.73 sqM) Glucose (74-99) mg/dL POC Glucose (mg/dL) 146 H (70-110) mg/dL POC Glu Steno Pool Supervisor ID Elmer Playcie Calcium (8.4-10.2) mg/dL Magnesium (1.6-2.3) mg/dL Total Bilirubin (0.2-1.3) mg/dL AST (14-36) U/L ALT (4-34) U/L Alkaline Phosphatase (38-126) U/L Creatine Kinase (30-135) U/L Troponin I (0.000-0.034) ng/mL NT-Pro-B Natriuret Pep pg/mL Total Protein (6.3-8.2) g/dL Albumin (3.5-5.0) g/dL Procalcitonin (0.02-0.50) ng/mL Stool Occult Blood Positive H (Negative) Influenza Type A (PCR) (Not Detectd) Influenza Type B (PCR) (Not Detectd) RSV (PCR) (Not Detectd) SARS-CoV-2 (PCR) (Not Detectd) Disposition Clinical Impression: Syncope, Upper GI bleed Disposition: ADMITTED IP TO THIS HOSP Condition: Fair
[2025-01-15] MEDS: PROCHLORPERAZINE INJ 10 MG/2 ML VIAL IVP STA (05:48)
[2025-01-15 05:51] LABS: RBC Morphology Normal
[2025-01-15] MEDS: FAMOTIDINE 20 MG/2 ML VIAL IV STA (05:52)
[2025-01-15 06:04] LABS: INR 1.0 (<1.2); Partial Thromboplastin Time 22.3 sec (22.0-30.0); Prothrombin Time 11.0 sec (10.0-12.5)
[2025-01-15] MEDS: PANTOPRAZOLE 40 MG/10 ML VIAL IVP STA (06:45)
--- NOTE | 2025-01-15 07:03 | CT ---
EXAMINATION TYPE: CT chest angio for PE CT DLP: 1488.8 mGycm, Automated exposure control for dose reduction was used. DATE OF EXAM: 01/15/2025 6:14 AM COMPARISON: CT chest 12/05/2024, CTA chest 08/10/2024, 04/15/2024 CLINICAL INDICATION:Female, 64 years old with history of SYNCOPE; Pt had syncopal episode from standi ng. Pt denies any injuries, does not take a blood thinner. Pt does admit to loss of consciousness. Co mplains of dizziness upon arrival. TECHNIQUE/CONTRAST: CTA scan of the thorax is performed with IV Contrast, patient injected with 100 mL of , pulmonary emb olism protocol. MIP images are created and reviewed. FINDINGS: Pulmonary Artery: There is no evidence for a filling defect within the pulmonary vasculature to sugge st acute pulmonary embolism. The pulmonary artery is of normal size. Lungs/Pleura: No pleural effusion or pneumothorax. Scattered groundglass opacities throughout the mouna gs. Linear atelectasis within the right middle lobe and lingula. Airway: Large airways are patent. Heart: Mildly enlarged.Trace pericardial effusion No significant coronary artery calcifications. Vasculature: No evidence of aortic aneurysm. Mediastinum: No evidence of adenopathy. Musculoskeletal: No acute osseous abnormalities Soft Tissues: Unremarkable. Lower neck: Left thyroid lobe appears surgically absent. Upper Abdomen: Postsurgical changes at the GE junction from Brayden fundoplication. The liver is diffu sely hypoattenuating. IMPRESSION: 1. No evidence of pulmonary embolism. 2. Scattered groundglass opacities throughout the lungs. This favored to represent air trapping versu s atypical pneumonia. 3. Hepatic steatosis. [facility], , 01/15/2025 7:01 AM
[2025-01-15] MEDS ORDERED: NALOXONE 0.4 MG/ML 1 ML VIAL IV PRN (07:08)
[2025-01-15] MEDS ORDERED: ONDANSETRON 4 MG/2 ML VIAL IVP PRN (07:08)
[2025-01-15] MEDS ORDERED: ACETAMINOPHEN TAB 325 MG TAB PO PRN (07:08)
--- NOTE | 2025-01-15 07:09 | CT ---
EXAM: CT Head Without Intravenous Contrast CLINICAL HISTORY: ITS.REASON CT Reason: Syncope TECHNIQUE: Axial computed tomography images of the head/brain without intravenous contrast. CTDI is 49.2 mGy and DLP is 1229.4 mGy-cm. This CT exam was performed using one or more of the following dose reduction techniques: automated exposure control, adjustment of the mA and/or kV according to patient size, and/or use of iterative reconstruction technique. COMPARISON: Prior brain MRI from June 16, 2023. FINDINGS: Brain: Unremarkable. No hemorrhage. No significant white matter disease. No edema. Ventricles: Unremarkable. No ventriculomegaly. Bones/joints: Excessive dental caries with multiple maxillary teeth demonstrate periapical abscesses. Recommend dental consult. No acute fracture. Soft tissues: Unremarkable. Sinuses: Unremarkable as visualized. No acute sinusitis. Mastoid air cells: There is a small amount of fluid in the right mastoid air cells.. No mastoid effusion. IMPRESSION: No evidence of acute intracranial pathology.
[2025-01-15] MEDS: SODIUM CHLORIDE 0.9% 1,000 ML IV SCH (07:15)
[2025-01-15] MEDS: SODIUM CHLORIDE 0.9% 500 ML 500 ML IV ONE (07:19)
[2025-01-15] MEDS: PANTOPRAZOLE 40 MG/10 ML VIAL IV SCH ×2 (08:57→22:10)
[2025-01-15 10:20] LABS: Bilirubin,Urine Negative (Negative); Blood,Urine Negative (Negative); Color,Urine Colorless; Glucose,Urine (UA) Negative (Negative); Ketones,Urine Negative (Negative); Leukocyte Esterase,Urine Negative (Negative); Nitrite,Urine Negative (Negative); PH, Urine 5.5 (5.0-8.0); Protein,Urine Negative (Negative); Urobilinogen,Urine <2.0 mg/dL (<2.0)
[2025-01-15 10:53] LABS: Specific Gravity,Urine 1.048 (1.001-1.035)
--- NOTE | 2025-01-15 11:23 | P.CONS ---
History of Present Illness - Reason for Consult Consult date: 01/15/25 Upper GI bleed Requesting physician: Luly Patino - Chief Complaint Dizziness, syncope - History of Present Illness This is a pleasant 64-year-old female with a medical history including GERD, morbid obesity status post Niesen fundoplication, hypertension, alopecia, pso riasis, myasthenia gravis who takes prednisone 5 mg daily had reported to the hospital early this morning around 4 AM after having couple episodes of syncope and collapse. Apparently patient had been traveling yesterday in [place] and had a syncopal episode and had fallen. Reportedly lost consciousness. Also lost continence of her bowels. She did arrive home yesterday similar episode occurred where she became lightheaded and lost consciousness. She came into the emergency department for further evaluation. Initially she had stated that she was not having any vomiting or diarrhea, no abdominal pain. She was having some mild nausea however this morning she had large dark maroon-colored stool. She was given 1 unit of blood for hemoglobin at 10.2 for symptomatic anemia and GI bleed. She denies any anticoagulation, no NSAID use, takes the prednisone daily for her myasthenia gravis. Does confirm heartburn no previous history of peptic ulcer disease and no history of previous GI bleed. Last upper endoscopy was with Dr. Hayes in March 2024 with findings of LA grade C erosive es ophagitis she had a colonoscopy in April [address] Hayes with findings of diverticulosis and internal hemorrhoids nonbleeding. Review of Systems REVIEW OF SYSTEMS: CARDIOPULMONARY: No chest pain or shortness of breath. Gastrointestinal: No abdominal pain. Nausea without vomiting. No hematemesis, coffee-ground emesis. No rectal bleeding. Large dark maroon bowel movement GENITOURINARY: No dysuria or hematuria. MUSCULOSKELETAL: Reports normal range of motion., Joint pain. SKIN: No rashes. No jaundice. Psoriasis ENDOCRINE: No chills, fevers. No excessive weight gain or loss. No polydipsia or polyuria. PSYCHIATRIC: Unremarkable. NEUROLOGY: No change in mental status. Denies dizziness, headache. ENT: Vision unremarkable. CONSTITUTIONAL: No recent weight loss. No fever, chills, night sweats. Past Medical History Past Medical History: Chest Pain / Angina, Hyperlipidemia, Hypertension, Skin Disorder Additional Past Medical History / Comment(s): Alopecia, PSORIASIS, MYASTHENIA GRAVIS. History of Any Multi-Drug Resistant Organisms: None Reported Past Surgical History: Hernia Repair, Hysterectomy, Orthopedic Surgery Additional Past Surgical History / Comment(s): SX TO REPAIR HIATAL HERNIA, L LEG SX R/T SEVERE CUT, R HAND GANGLION CYST EXC. Past Anesthesia/Blood Transfusion Reactions: No Reported Reaction Additional Past Anesthesia/Blood Transfusion Reaction / Comm: no blood transfusion. Past Psychological History: Anxiety, Depression Smoking Status: Never smoker Past Alcohol Use History: Occasional Past Drug Use History: None Reported - Past Family History Brother(s) Family Medical History: Cancer Additional Family Medical History / Comment(s): liver, also had brother with colon cancer. Medications and Allergies Home Medications Medication Instructions Recorded Confirmed Type Simvastatin [Zocor] 20 mg PO HS 03/16/14 01/15/25 History Ergocalciferol [Vitamin D2 (1250 1,250 mcg PO SUWE 08/10/24 01/15/25 History Mcg = 56928 Iu)] predniSONE 5 mg PO W/LUNCH 08/10/24 01/15/25 History Potassium Gluconate 99 mg PO SUWE 01/15/25 01/15/25 History Allergies Allergy/AdvReac Type Severity Reaction Status Date / Time corn Allergy Rash/Hives Verified 01/15/25 07:46 tree and shrub pollen Allergy Rash/Hives Verified 01/15/25 07:46 tree nut [Pecan] Allergy Rash/Hives Verified 01/15/25 07:46 Physical Exam Vitals: Vital Signs Temp Pulse Resp BP Pulse Ox 01/15/25 09:47 98 F 128 H 20 104/87 99 01/15/25 09:35 98.3 F 129 H 18 97/60 96 01/15/25 07:26 122 H 20 112/68 99 01/15/25 06:31 116 H 22 112/68 99 01/15/25 03:15 97.7 F 122 H 18 130/77 95 Intake and Output 01/14/25 01/15/25 01/15/25 22:59 06:59 14:59 Intake Total 0 Balance 0 Intake: Blood Product 0 Rc Pheresis 2 As3 Unit 0 [id number] Other: Weight 108.862 kg General appearance: The patient is alert, oriented, appears in no acute distress. Morbidly obese. HET: Head is normocephalic and atraumatic. Conjunctiva pink. Sclera anicteric. Neck: Supple without lymphadenopathy. Trachea midline. Heart: Regular. Lungs: Equal expansion, normal respiratory effort. Abdomen: Soft, nontender, nondistended. Skin: No rashes. No jaundice. Extremities: Normal skin color and turgor. No pedal edema. Neurological: No focal deficits. Alert and oriented x3. Results CBC & Chem 7: 01/15/25 11:38 01/15/25 03:22 Labs: Abnormal Lab Results - Last 24 Hours (Table) 01/15/25 01/15/25 01/15/25 Range/Units 03:22 03:22 04:07 WBC 14.06 H (4.50-10.00) 10*3/uL RBC 3.17 L (4.10-5.20) 10*6/uL Hgb 10.2 L (12.0-15.0) g/dL Hct 31.0 L (37.2-46.3) % MCV 97.8 H (80.0-97.0) fL MCH 32.2 H (27.0-32.0) pg Immature Gran # 0.09 H (0.00-0.04) 10*3/uL Lymphocytes # 5.28 H (0.90-5.00) 10*3/uL Monocytes # 1.52 H (0.20-1.00) 10*3/uL Chloride 110 H (98-107) mmol/L BUN 48 H (7-17) mg/dL Glucose 164 H (74-99) mg/dL POC Glucose (mg/dL) 146 H (70-110) mg/dL Total Protein 5.7 L (6.3-8.2) g/dL Albumin 3.0 L (3.5-5.0) g/dL Stool Occult Blood (Negative) Crossmatch 01/15/25 01/15/25 Range/Units 05:59 07:22 WBC (4.50-10.00) 10*3/uL RBC (4.10-5.20) 10*6/uL Hgb (12.0-15.0) g/dL Hct (37.2-46.3) % MCV (80.0-97.0) fL MCH (27.0-32.0) pg Immature Gran # (0.00-0.04) 10*3/uL Lymphocytes # (0.90-5.00) 10*3/uL Monocytes # (0.20-1.00) 10*3/uL Chloride (98-107) mmol/L BUN (7-17) mg/dL Glucose (74-99) mg/dL POC Glucose (mg/dL) (70-110) mg/dL Total Protein (6.3-8.2) g/dL Albumin (3.5-5.0) g/dL Stool Occult Blood Positive H (Negative) Crossmatch See Detail Comments: Past CT angiogram reports no evidence of pulmonary embolism there are postsurgical changes at the GE junction from Niesen fundoplication. Liver is diffusely hypoattenuating. Assessment and Plan (1) GI bleed Narrative/Plan: 64-year-old female presenting for syncope and collapse with loss of consciousne ss unclear etiology. Patient presented initially without any signs or symptoms of GI bleed. During her time in the emergency department she has had 1-2 large maroon bowel movements and was noted to be anemic with a hemoglobin of 10.2 and elevated BUN which can be seen in setting of upper GI bleed. Patient does take prednisone daily, no other NSAIDs. No history of peptic ulcer disease but does have a history of GERD with prior Niesen fundoplication. Will schedule for upper endoscopy for direct visualization for possible upper GI bleed. Current Visit: Yes Status: Acute Code(s): K92.2 - GASTROINTESTINAL HEMORRHA GE, UNSPECIFIED SNOMED Code(s): 73410456 (2) Symptomatic anemia Current Visit: Yes Status: Acute Code(s): D64.9 - ANEMIA, UNSPECIFIED SNOMED Code(s): 764236900 (3) Syncope Current Visit: Yes Status: Acute Code(s): R55 - SYNCOPE AND COLLAPSE SNOMED Code(s): 442618383 Plan: 1. Continue symptomatic and supportive care 2. N.p.o. after midnight 3. Protonix 40 mg twice daily 4. Avoid NSAIDs 5. CBC every 6 hours then daily 6. Patient scheduled for EGD tomorrow 7. Rest of medical management per primary medical team Thank you for this consultation, we will continue to follow.
[2025-01-15 11:34] LABS: Glucose,Whole Blood 125 mg/dL (70-110)
[2025-01-15 11:59] LABS: HCT 32.1 % (37.2-46.3); HGB 10.5 g/dL (12.0-15.0); MCH 31.5 pg (27.0-32.0); MCHC 32.7 g/dL (32.0-37.0); MCV 96.4 fL (80.0-97.0); Platelet Count 163 10*3/uL (140-440); RBC 3.33 10*6/uL (4.10-5.20); RDW 14.7 % (11.5-14.5); WBC 17.75 10*3/uL (4.50-10.00)
--- NOTE | 2025-01-15 14:06 | XR ---
EXAMINATION TYPE: XR chest 1V portable DATE OF EXAM: 01/15/2025 2:01 PM COMPARISON: 04/14/2024 CLINICAL INDICATION: Female, 64 years old with history of chf, TECHNIQUE: XR chest 1V portable views of the chest are obtained. Examination is limited by patient m otion. FINDINGS: Demonstrated are scattered senescent parenchymal change. There is no evidence for focal infiltrate. The heart is stable. Hilar and mediastinal structures are within normal limits. Degenerative changes are seen of the dorsal spine. IMPRESSION: 1. Chronic changes without evidence for acute pulmonary disease. [facility], , 01/15/2025 2:04 PM
[2025-01-15] MEDS: FUROSEMIDE 10 MG/ML 2 ML VIAL IV ONE (17:09)
[2025-01-15 17:11] LABS: INR 1.0 (<1.2); Prothrombin Time 11.2 sec (10.0-12.5)
[2025-01-15 17:17] LABS: Partial Thromboplastin Time 19.3 sec (22.0-30.0)
--- NOTE | 2025-01-15 18:31 | US ---
EXAMINATION TYPE: US carotid duplex BILAT DATE OF EXAM: 01/15/2025 COMPARISON: NONE CLINICAL INDICATION: Female, 64 years old with history of syncope; syncope Additional History: .... TECHNIQUE: Grayscale, color Doppler and spectral Doppler evaluation of the bilateral carotid systems and vertebral arteries. Indirect Doppler criteria was utilized. FINDINGS: EXAM MEASUREMENTS: RIGHT: Peak Systolic Velocity (PSV) cm/sec ----- Right CCA: 129 ----- Right ICA: 174 ----- Right ECA: 122 ICA/CCA ratio: 1.4 RIGHT: End Diastole cm/sec ----- Right CCA: 35.3 ----- Right ICA: 46.2 ----- Right ECA: 20.8 LEFT: Peak Systolic Velocity (PSV) cm/sec ----- Left CCA: 101 ----- Left ICA: 174 ----- Left ECA: 112 ICA/CCA ratio: 1.7 LEFT: End Diastole cm/sec ----- Left CCA: 25.4 ----- Left ICA: 50.7 ----- Left ECA: 15.4 VERTEBRALS (direction of flow): Right Vertebral: Antegrade Left Vertebral: Antegrade Rhythm: Normal EXPORT DOCUMENTS CLERK NOTES: slightly limited due to snoring elevated velocities seen bilateral ICAs. Color Doppler imaging shows patency with blood flow throughout the carotid artery. Spectral waveforms are within normal limits. IMPRESSION: Right: Less than 50% stenosis of the carotid bifurcation. Left: Less than 50% stenosis of the carotid bifurcation. Criteria for Assigning % of Stenosis / Diameter reduction (Estimation based on the indirect measurements of the internal carotid artery velocities (ICA PSV). 1. Normal (no stenosis)=ICA PSV < 180 cm/s: ratio < 2.0: ICA EDV<40 cm/s. 2. Less than 50% stenosis=ICA PSV < 180 cm/s: ratio < 2.0: ICA EDV<40 cm/s. 3. 50 to 69% stenosis=ICA PSV of 180 to 230 cm/s: ration 2.0 ? 4.0: ICA EDV 40-100 cm/s. PSV 125-180 cm/sec and ICA/CCA PSV Ratio ? 2.0 is also consistent with 50-69% stenosis 4. Greater than 70% stenosis to near occlusion= ICA PSV > 230 cm/s: ratio > 4.0: ICA EDV > 100 cm/s. 5. Near occlusion= ICA PSV velocities may be low or undetectable: variable ratio and ICA EDV. 6. Total occlusion=unable to detect flow. [facility], , 01/15/2025 6:29 PM
[2025-01-15 20:22] LABS: Basophils # (A) 0.04 10*3/uL (0.00-0.10); Basophils % (A) 0.2 %; Eosinophils # (A) 0.01 10*3/uL (0.04-0.35); Eosinophils % (A) 0.0 %; HCT 29.4 % (37.2-46.3); HGB 9.8 g/dL (12.0-15.0); Lymphocytes # (A) 4.05 10*3/uL (0.90-5.00); Lymphocytes % (A) 17.6 %; MCH 31.8 pg (27.0-32.0); MCHC 33.3 g/dL (32.0-37.0); MCV 95.5 fL (80.0-97.0); Monocytes # (A) 1.96 10*3/uL (0.20-1.00); Monocytes % (A) 8.5 %; Neutrophils # (A) 16.77 10*3/uL (1.80-7.70); Neutrophils % (A) 73.1 %; Platelet Count 160 10*3/uL (140-440); RBC 3.08 10*6/uL (4.10-5.20); RDW 15.6 % (11.5-14.5); WBC 22.97 10*3/uL (4.50-10.00)
[2025-01-15] MEDS: ATORVASTATIN 10 MG TAB PO SCH (22:10)
--- NOTE | 2025-01-16 02:57 | P.CNPUL ---
History of Present Illness Consult date: 01/16/25 Requesting physician: Jhonny Mcnamara Reason for consult: abnormal CXR/CT Chief complaint: Syncope History of present illness: Patient is a 64-year-old female with past medical history significant for myasthenia gravis, and was recently hospitalized at [facility] for myasthenia crisis. She was given IV steroids and taking prednisone daily. Also received IVIG infusions on the and . Her neurologist is Dr. Sanchez. She does have history of GI bleed. Denies anticoagulant use or NSAID abuse. Most recent EGD done in March, for concerns of GI bleeding and melanotic stools. Findings remarkable for gastritis, GERD with erosive esophagitis. Brought into the emergency department yesterday morning with a syncopal event. Was having vacation in [place] the day prior, went to the bathroom, became lightheaded and had a syncopal episode. She may have hit her head. States she lost control of her bowels at that time. No tongue biting. No history of seizures. She was seen by EMS and then returned home. The following evening she got up to use the restroom and returned back to the bedroom reportedly became lightheaded and lost consciousness again. She has been having multiple loose black stools at home. Denies any nausea or vomiting or hematemesis. No hematochezia or suhail red blood. No abdominal pain. Fecal occult was positive. While being evaluated the emergency department noted to be tachycardic. EKG: Sinus tachycardia, with a rate of 116 bpm, moderate diffuse ST depressions. Chest CT angiogram did not show any evidence of pulmonary embolism. There was some scattered groundglass opacities favored to represent air trapping versus atypical infection. Brain CT did not show any evidence of intracranial hemorrhaging or mass effect. Carotid Doppler did not show any significant flow-limiting stenosis at the carotid bifurcations bilaterally. L abs including a CBC with a WBC count of 23.9, hemoglobin 9.8, platelets 160. PT 11.2, INR 1, APTT 19. Troponin 0.016. Urinalysis unremarkable for infection. Procalcitonin level only 0.26. Patient currently being seen in the intensive care unit as an overflow. Continues to have intermittent black stools. Blood pressures remain normotensive. Still tachycardic on bedside monitor, sinus tachycardia. She has been started on Protonix 40 mg twice daily. Also previously transfused 1 unit of PRBCs. Most recent hemoglobin down to 9.8 g/dL. She appears comfortable on 2 L/min nasal cannula. She is chronically short of breath. She previously had COVID-19 infection March of last year. More recently, had influenza A infection July,. Chest CT angiogram from that time remarkable for scattered small ground groundglass opacities in the left lung consistent with infectious process. Follow-up chest CT showed resolution of these findings. At this time, she is negative for influenza A/B, RSV, COVID. She denies any worsening in her chronic shortness of breath. Denies any URI-like symptoms. Denies any persistent coughing, sputum production, hemoptysis, chest pain. Denies any fevers or chills. Denies any sick contacts. Denies any history of COPD or asthma. Denies chest pain, heart palpitations, lower extremity edema. Denies any vision changes, dysphagia, increased muscle fatigability. Review of Systems Constitutional: Reports fatigue, Denies chills, Denies fever, Denies night sweats, Denies poor appetite, Denies weakness, Denies weight gain, Denies weight loss Ears, nose, mouth and throat: Denies dysphagia, Denies headache, Denies nasal congestion, Denies nasal discharge, Denies post-nasal drip, Denies sinus pain, Denies sinus pressure, Denies sore throat Cardiovascular: Reports dyspnea on exertion, Reports syncope, Denies chest pain, Denies leg edema, Denies lightheadedness, Denies orthopnea, Denies palpitations Respiratory: Denies congestion, Denies cough, Denies cough with sputum, Denies dyspnea, Denies hemoptysis, Denies pain Gastrointestinal: Reports diarrhea, Reports melena, Denies abdominal pain, Denies constipation, Denies hematemesis, Denies hematochezia, Denies loss of appetite, Denies nausea, Denies vomiting Genitourinary: Denies dysuria, Denies flank pain, Denies hematuria Musculoskeletal: Denies gait dysfunction, Denies limitation of motion, Denies muscle weakness Integumentary: Denies rash Neurological: Reports syncope, Denies aphasia, Denies confusion, Denies head injury, Denies headaches, Denies numbness, Denies paralysis, Denies paresthesias, Denies seizures, Denies tremors, Denies visual changes Psychiatric: Denies anxiety, Denies depression Past Medical History Past Medical History: Chest Pain / Angina, Hyperlipidemia, Hypertension, Skin Disorder Additional Past Medical History / Comment(s): Alopecia, PSORIASIS, MYASTHENIA GRAVIS. History of Any Multi-Drug Resistant Organisms: None Reported Past Surgical History: Hernia Repair, Hysterectomy, Orthopedic Surgery Additional Past Surgical History / Comment(s): SX TO REPAIR HIATAL HERNIA, L LEG SX R/T SEVERE CUT, R HAND GANGLION CYST EXC. Past Anesthesia/Blood Transfusion Reactions: No Reported Reaction Additional Past Anesthesia/Blood Transfusion Reaction / Comment(s): no blood transfusion. Past Psychological History: Anxiety, Depression Smoking Status: Never smoker Past Alcohol Use History: Occasional Past Drug Use History: None Reported - Past Family History Brother(s) Family Medical History: Cancer Additional Family Medical History / Comment(s): liver, also had brother with colon cancer. Medications and Allergies Home Medications Medication Instructions Recorded Confirmed Type Simvastatin [Zocor] 20 mg PO HS 03/16/14 01/15/25 History Ergocalciferol [Vitamin D2 (1250 1,250 mcg PO SUWE 08/10/24 01/15/25 History Mcg = 77674 Iu)] predniSONE 5 mg PO W/LUNCH 08/10/24 01/15/25 History Potassium Gluconate 99 mg PO SUWE 01/15/25 01/15/25 History Allergies Allergy/AdvReac Type Severity Reaction Status Date / Time corn Allergy Rash/Hives Verified 01/15/25 07:46 tree and shrub pollen Allergy Rash/Hives Verified 01/15/25 07:46 tree nut [Pecan] Allergy Rash/Hives Verified 01/15/25 07:46 Physical Exam Vitals: Vital Signs Temp Pulse Resp BP Pulse Ox 01/16/25 00:00 98.3 F 105 H 14 135/64 96 01/15/25 20:00 98.8 F 110 H 16 113/59 96 01/15/25 16:00 98.0 F 111 H 20 117/60 97 01/15/25 14:00 101 H 19 115/61 98 01/15/25 13:22 98.1 F 106 H 17 115/61 99 01/15/25 11:26 98 F 110 H 16 111/68 98 01/15/25 11:24 998 F H 110 H 16 111/61 98 01/15/25 11:00 108 H 12 110/64 98 01/15/25 10:45 106 H 16 110/64 100 01/15/25 10:30 113 H 16 110/64 98 01/15/25 10:15 98 F 112 H 16 110/64 98 01/15/25 10:07 98 F 120 H 20 110/64 98 01/15/25 10:00 98 F 129 H 15 104/87 99 01/15/25 09:47 98 F 128 H 20 104/87 99 01/15/25 09:35 98.3 F 129 H 18 97/60 96 01/15/25 09:00 122 H 17 112/68 100 01/15/25 08:00 116 H 17 112/68 100 01/15/25 07:26 122 H 20 112/68 99 01/15/25 07:00 112/68 01/15/25 06:31 116 H 22 112/68 99 01/15/25 06:00 130/77 01/15/25 05:00 130/77 01/15/25 04:00 130/77 87 L 01/15/25 03:18 83 L 01/15/25 03:15 97.7 F 122 H 18 130/77 95 Intake and Output 01/15/25 01/15/25 01/16/25 14:59 22:59 06:59 Intake Total 283 240 Balance 283 240 Intake: IV 240 Sodium Chloride 0.9% 1, 240 000 ml @ 60 mls/hr IV . [id number] [facility] Rx#:[id number] Blood Product 283 Rc Pheresis 2 As3 Unit 283 [id number] Other: # Voids 2 1 # Bowel Movements 1 0 Weight 108.862 kg GENERAL EXAM: Alert, 64-year-old obese female, comfortable in no apparent distress. HEAD: Normocephalic and atraumatic. Alopecia EYES: Normal reaction of pupils, equal size. No ptosis. No nystagmus. NOSE: Clear with pink turbinates. THROAT: No erythema or exudates. NECK: No masses, no JVD. CHEST: No chest wall deformity. LUNGS: Equal air entry with no crackles, wheeze, rhonchi or dullness. On 2 L/min nasal cannula. No conversational dyspnea or accessory muscle use.. CVS: S1 and S2 normal with no audible murmur, regular rhythm. No extra heart sounds ABDOMEN: No hepatosplenomegaly, active bowel sounds, no guarding or rigidity. SPINE: No scoliosis or deformity SKIN: No rashes CENTRAL NERVOUS SYSTEM: Alert and oriented x 3, cranial nerves II through XII intact, no focal deficits, tone is normal in all 4 extremities. EXTREMITIES: There is no peripheral edema, clubbing, or cyanosis. Peripheral pulses are intact. Results - Laboratory Findings CBC and BMP: 01/15/25 19:50 01/15/25 03:22 PT/INR, D-dimer PT 11.2 sec (10.0-12.5) 01/15/25 16:44 INR 1.0 (<1.2) 01/15/25 16:44 Abnormal lab findings: Abnormal Labs 01/15/25 01/15/25 01/15/25 03:22 03:22 04:07 WBC 14.06 H RBC 3.17 L Hgb 10.2 L Hct 31.0 L MCV 97.8 H MCH 32.2 H Immature Gran # 0.09 H Neutrophils # Lymphocytes # 5.28 H Monocytes # 1.52 H Eosinophils # APTT Chloride 110 H BUN 48 H Glucose 164 H POC Glucose (mg/dL) 146 H C-Reactive Protein Total Protein 5.7 L Albumin 3.0 L Ur Specific [place] Stool Occult Blood Crossmatch 01/15/25 01/15/25 01/15/25 05:59 07:22 10:11 WBC RBC Hgb Hct MCV MCH Immature Gran # Neutrophils # Lymphocytes # Monocytes # Eosinophils # APTT Chloride BUN Glucose POC Glucose (mg/dL) C-Reactive Protein Total Protein Albumin Ur Specific [place] 1.048 H Stool Occult Blood Positive H Crossmatch See Detail 01/15/25 01/15/25 01/15/25 11:33 11:38 14:30 WBC 17.75 H RBC 3.33 L Hgb 10.5 L Hct 32.1 L MCV MCH Immature Gran # Neutrophils # Lymphocytes # Monocytes # Eosinophils # APTT Chloride BUN Glucose POC Glucose (mg/dL) 125 H C-Reactive Protein 1.4 H Total Protein Albumin Ur Specific [place] Stool Occult Blood Crossmatch 01/15/25 01/15/25 16:44 19:50 WBC 22.97 H RBC 3.08 L Hgb 9.8 L Hct 29.4 L MCV MCH Immature Gran # 0.14 H Neutrophils # 16.77 H Lymphocytes # Monocytes # 1.96 H Eosinophils # 0.01 L APTT 19.3 L Chloride BUN Glucose POC Glucose (mg/dL) C-Reactive Protein Total Protein Albumin Ur Specific [place] Stool Occult Blood Crossmatch - Diagnostic Findings Chest x-ray: image reviewed CT scan - chest: image reviewed Assessment and Plan Assessment: Acute GI bleeding and melanotic stools Acute blood loss anemia, status post 1 unit PRBCs, most recent hemoglobin 9.8 g/dL Syncope; Brain CT did not show any evidence of intracranial hemorrhaging or mass effect. Carotid Doppler did not show any significant flow-limiting stenosis at the carotid bifurcations bilaterally. Groundglass opacities, Chest CT angiogram did not show any evidence of pulmonary embolism. There was some scattered groundglass opacities favored to represent air trapping versus atypical infection. Viral 4 Plex negative for influenza A/B, RSV, COVID. Procalcitonin level 0.26. Acute leukocytosis History of GI bleed; Most recent EGD done in March, for concerns of GI bleeding and melanotic stools. Findings remarkable for gastritis, GERD with erosive esophagitis. History of myasthenia gravis with recent myasthenic crisis, recently hospitalized at [facility], started on oral prednisone and rec eived IVIG infusions on January 04 and . No current signs or symptoms of myasthenia crisis History of influenza B infection, July 2024; chest CT angiogram from that time showing scattered small groundglass opacities in the left lung consistent with infectious process, follow-up imaging showed resolution of these findings. History of hyperlipidemia Plan: Hemodynamics are stable Plan is for EGD in the morning Continue to monitor H&H and transfuse for hemoglobin less than 7 g/dL Continue Protonix 40 mg twice daily Continue supplemental oxygen, currently on 2 L/min nasal cannula Chest CT angiogram reviewed scattered groundglass opacities favored to represent air trapping Procalcitonin relatively low at 0.26 Viral 4 Plex negative for influenza A/B, RSV, COVID Patient denies any infectious-like symptoms Patient is currently being monitored in the intensive care unit as an overflow. I have personally seen and examined the patient, performed the documentation and the assessment and plan as written. Number of minutes spent on the visit:25 Time with Patient: Greater than 30
[2025-01-16] MEDS ORDERED: PROPOFOL 10 MG/ML 20 ML VIAL IV ONE (07:00)
[2025-01-16] MEDS: SODIUM CHLORIDE 0.9% 1,000 ML IV ONE ×2 (07:10→07:17)
--- NOTE | 2025-01-16 07:19 | P.PCN ---
Date of Procedure: 01/16/25 Procedure(s) Performed: BRIEF HISTORY: Patient is a 64-year-old, pleasant, white female admitted to hospital with an episode of syncope and subsequently started having multiple episodes of dark maroon stool. Hemoglobin dropped to 9.8 g/dL. Because of clinical suspicion for acute upper GI bleed she is scheduled for an upper endoscopy today.. PROCEDURE PERFORMED: Esophagogastroduodenoscopy. PREOPERATIVE DIAGNOSIS: Acute GI bleed. IV sedation per anesthesia. PROCEDURE: After informed consent was obtained, the patient was brought into the endoscopy unit. IV conscious sedation was administered by Anesthesia under continuous monitoring. Initially the Olympus GIF-140 video endoscope was inserted into the mouth. Esophagus intubated without any difficulty. It was gradually advanced into the stomach and duodenum and carefully examined. The bulb and the second part of the duodenum appeared normal. The scope at this time was withdrawn to the stomach, adequately insufflated with air, and upon careful examination, mucosa of the antrum, body, cardia and the fundus appeared normal. The scope was then withdrawn into the esophagus. The GE junction was located at 39 cm from the incisors. The esophagus appeared normal. There were no erosions or ulcerations seen and the patient tolerated the procedure well. IMPRESSION: No evidence of acute upper GI bleed Normal-appearing esophagus stomach and duodenum RECOMMENDATIONS: The findings of this examination were discussed with the patient as well as her family. Clear liquid diet today. She will be scheduled for colonoscopy tomorrow to evaluate the source of acute GI bleed..
[2025-01-16 08:06] LABS: Basophils # (A) 0.02 10*3/uL (0.00-0.10); Basophils % (A) 0.2 %; Eosinophils # (A) 0.05 10*3/uL (0.04-0.35); Eosinophils % (A) 0.4 %; HCT 21.6 % (37.2-46.3); Lymphocytes # (A) 2.84 10*3/uL (0.90-5.00); Lymphocytes % (A) 24.5 %; MCH 32.0 pg (27.0-32.0); MCHC 32.9 g/dL (32.0-37.0); MCV 97.3 fL (80.0-97.0); Monocytes # (A) 0.79 10*3/uL (0.20-1.00); Monocytes % (A) 6.8 %; Neutrophils # (A) 7.83 10*3/uL (1.80-7.70); Neutrophils % (A) 67.7 %; Platelet Count 147 10*3/uL (140-440); RBC 2.22 10*6/uL (4.10-5.20); RDW 15.4 % (11.5-14.5); WBC 11.58 10*3/uL (4.50-10.00)
[2025-01-16 08:21] LABS: ALT 23 U/L (4-34); AST 25 U/L (14-36); African American GFR (CKD) 84 (>60 ml/min/1.73 sqM); Albumin 2.4 g/dL (3.5-5.0); Alkaline Phosphatase 66 U/L (38-126); Anion Gap 5 mmol/L; Blood Urea Nitrogen 35 mg/dL (7-17); Calcium 7.9 mg/dL (8.4-10.2); Carbon Dioxide 23 mmol/L (22-30); Chloride 114 mmol/L (98-107); Glucose 103 mg/dL (74-99); Non-African American GFR(CKD) 73 (>60 ml/min/1.73 sqM); Potassium 3.6 mmol/L (3.5-5.1); Sodium 142 mmol/L (137-145); Total Protein 4.7 g/dL (6.3-8.2)
[2025-01-16 08:40] LABS: HGB 7.1 g/dL (12.0-15.0)
--- NOTE | 2025-01-16 10:57 | P.PN ---
Progress Note - Text Progress Note Date: 01/16/25 Patient underwent upper endoscopy today with no evidence of GI bleed. Will proceed with colonoscopy tomorrow. This was discussed with patient. Patient agreeable with plan. Patient may have clear liquid diet and will start bowel prep this afternoon. Dr. Samantha Faulkner I agree with the dictator's note, documented as a scribe by Pina Moreno.
--- NOTE | 2025-01-16 11:00 | P.CRDCN ---
History of Present Illness Consult date: 01/16/25 Reason for Consult (text): Syncope History of present illness: This is a 64-year-old female patient with past medical history of hyperlipidemia , myasthenia gravis. Patient was previously seen by Dr. Chaney in 2016. 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 Patient also had a recent hospitalization at [facility] for myasthenia crisis requiring IV steroids as well as IVIG infusions. We have been asked to evaluate the patient for syncope. Patient apparently was in [place] at a safari and became dizzy and hot and the weather was very warm at the time. She went to the bathroom and fell backwards. EMS was called but she stated that she wanted to go home. She had Gatorade following that and subsequently had another dizzy spell and passed out while at home. Patient also found to have dark maroon stools and stool for occult blood was positive. She underwent EGD this morning which revealed no evidence of acute upper GI bleed and a normal-appearing esophagus, stomach and duodenum. She has been scheduled for colonoscopy for tomorrow. Patient presented with heart rate up to 129 and was hypotensive. She is status post IV fluids and IV Lasix 20 mg. Now blood pressure 94/58, heart rate 92, pulse ox 98% on 2 L nasal cannula. Patient was initially admitted to the ICU and is currently seen today on the cardiac stepdown unit. -EKG: Sinus rhythm with nonspecific ST changes -Chest x-ray: Chronic changes without acute process. -CT head: No acute intracranial pathology. -Carotid duplex: Right and left less than 50% stenosis of the carotid bifurcation. -CT a chest negative for PE. Scattered groundglass opacities throughout the lungs. Air-trapping versus atypical pneumonia. Hepatic steatosis. -Laboratory studies: Troponin negative x 3. proBNP 87. Procalcitonin 0.26. Stool for occult blood positive. Cepheid viral panel not detected. WBC max 22.9, hemoglobin 7.1, BUN 35 creatinine 0.86. -Home cardiac medications: Potassium gluconate 99 mg on Sundays and Wednesdays, simvastatin 20 mg at bedtime. - Echocardiogram performed 03/02/2024 revealed EF of 55 to 60%. Review Of Systems: At the time of my exam: CONSTITUTIONAL: Denies fever or chills. HEENT: Denies blurred vision, vision changes, or eye pain. Denies hemoptysis CARDIOVASCULAR: Denies chest pain. Denies orthopnea. Denies PND. Denies palpitations RESPIRATORY: Denies shortness of breath. GASTROINTESTINAL: Denies abdominal pain. Denies nausea or vomiting. HEMATOLOGIC: Denies bleeding disorders. GENITOURINARY: Denies any blood in urine. SKIN: Denies puritis. Denies rash. Physical examination: Gen: This is [ ] VS: reviewed HEENT: Head is atraumatic, normocephalic. Pupils equal, round. Sclerae is anicteric. NECK: Supple. No JVD. LUNGS: Clear to auscultation. No wheezes or rhonchi. No intercostal retractions. HEART: Regular rate and rhythm. No murmur. ABDOMEN: Soft No tenderness. EXTREMITIES: No pedal edema. No calf tenderness. NEUROLOGICAL: Patient is awake, alert and oriented x3. Assessment: Syncopal episode x 2 most likely secondary to anemia and acute GI bleed, rule out cardiac arrhythmia Acute GI bleed Acute blood loss anemia status post 1 unit of packed RBCs Acute leukocytosis Recent hospitalization for myasthenia crisis status post IV steroids and IVIG infusions History of myasthenia gravis Hyperlipidemia Plan: Resume patient's home cardiac medications Obtain 2-D echocardiogram and Doppler study to assess cardiac structure and function Continue telemetry monitoring Patient is scheduled for colonoscopy tomorrow Further recommendations to follow based upon clinical course Thank you kindly for this consultation. Nurse practitioner note has been reviewed, I agree with documented findings and plan of care. Patient was seen and examined. Past Medical History Past Medical History: Chest Pain / Angina, Hyperlipidemia, Hypertension, Skin Disorder Additional Past Medical History / Comment(s): Alopecia, PSORIASIS, MYASTHENIA GRAVIS. History of Any Multi-Drug Resistant Organisms: None Reported Past Surgical History: Hernia Repair, Hysterectomy, Orthopedic Surgery Additional Past Surgical History / Comment(s): SX TO REPAIR HIATAL HERNIA, L LEG SX R/T SEVERE CUT, R HAND GANGLION CYST EXC. Past Anesthesia/Blood Transfusion Reactions: No Reported Reaction Additional Past Anesthesia/Blood Transfusion Reaction / Comment(s): no blood transfusion. Past Psychological History: Anxiety, Depression Smoking Status: Never smoker Past Alcohol Use History: Occasional Past Drug Use History: None Reported - Past Family History Brother(s) Family Medical History: Cancer Additional Family Medical History / Comment(s): liver, also had brother with colon cancer. Medications and Allergies Home Medications Medication Instructions Recorded Confirmed Type Simvastatin [Zocor] 20 mg PO HS 03/16/14 01/15/25 History Ergocalciferol [Vitamin D2 (1250 1,250 mcg PO SUWE 08/10/24 01/15/25 History Mcg = 68775 Iu)] predniSONE 5 mg PO W/LUNCH 08/10/24 01/15/25 History Potassium Gluconate 99 mg PO SUWE 01/15/25 01/15/25 History Allergies Allergy/AdvReac Type Severity Reaction Status Date / Time corn Allergy Rash/Hives Verified 01/15/25 07:46 tree and shrub pollen Allergy Rash/Hives Verified 01/15/25 07:46 tree nut [Pecan] Allergy Rash/Hives Verified 01/15/25 07:46 Physical Exam Vitals: Vital Signs Temp Pulse Pulse Resp BP BP Pulse Ox 01/16/25 05:24 98.2 F 101 H 16 103/62 98 01/16/25 04:00 98.3 F 108 H 14 127/68 97 01/16/25 00:00 98.3 F 105 H 14 135/64 96 01/15/25 20:00 98.8 F 110 H 16 113/59 96 01/15/25 16:00 98.0 F 111 H 20 117/60 97 01/15/25 14:00 101 H 19 115/61 98 01/15/25 13:22 98.1 F 106 H 17 115/61 99 01/15/25 11:26 98 F 110 H 16 111/68 98 01/15/25 11:24 998 F H 110 H 16 111/61 98 01/15/25 11:00 108 H 12 110/64 98 01/15/25 10:45 106 H 16 110/64 100 01/15/25 10:30 113 H 16 110/64 98 01/15/25 10:15 98 F 112 H 16 110/64 98 01/15/25 10:07 98 F 120 H 20 110/64 98 01/15/25 10:00 98 F 129 H 15 104/87 99 01/15/25 09:47 98 F 128 H 20 104/87 99 01/15/25 09:35 98.3 F 129 H 18 97/60 96 01/15/25 09:00 122 H 17 112/68 100 01/15/25 08:00 116 H 17 112/68 100 Intake and Output 01/15/25 01/16/25 01/16/25 22:59 06:59 14:59 Intake Total 240 100 Balance 240 100 Intake: IV 240 100 Sodium Chloride 0.9% 1, 240 000 ml @ 60 mls/hr IV . [id number] [facility] Rx#:[id number] Other: # Voids 2 1 # Bowel Movements 1 0 Weight 109.7 kg Results 01/16/25 07:33 01/16/25 07:33 Cardiac Enzymes 01/15/25 01/15/25 Range/Units 08:36 11:38 Troponin I 0.023 0.016 (0.000-0.034) ng/mL Coagulation 01/15/25 Range/Units 16:44 PT 11.2 (10.0-12.5) sec APTT 19.3 L (22.0-30.0) sec CBC 01/15/25 01/15/25 Range/Units 11:38 19:50 WBC 17.75 H 22.97 H (4.50-10.00) 10*3/uL RBC 3.33 L 3.08 L (4.10-5.20) 10*6/uL Hgb 10.5 L 9.8 L (12.0-15.0) g/dL Hct 32.1 L 29.4 L (37.2-46.3) % Plt Count 163 160 (140-440) 10*3/uL Current Medications Generic Name Dose Route Start Last Admin Trade Name Nikolaiq PRN Reason Stop Dose Admin Acetaminophen 650 mg 01/15/25 07:08 Acetaminophen Tab 325 Mg Tab PO Q6HR PRN Mild Pain or Fever > 100.5 Atorvastatin Calcium 10 mg 01/15/25 21:00 01/15/25 22:10 Atorvastatin 10 Mg Tab PO 10 mg HS LAURA Administration Ergocalciferol 1,250 mcg 01/17/25 09:00 Ergocalciferol 1,250 Mcg (50,000 Iu) Capsule PO SUWE LAURA Sodium Chloride 1,000 mls @ 60 mls/hr 01/15/25 07:15 01/15/25 17:49 Saline 0.9% IV Not Given .[id number] LAURA Naloxone HCl 0.2 mg 01/15/25 07:08 Naloxone 0.4 Mg/Ml 1 Ml Vial IV Q2M PRN Opioid Reversal Ondansetron HCl 4 mg 01/15/25 07:08 Ondansetron 4 Mg/2 Ml Vial IVP Q8HR PRN Nausea And Vomiting Pantoprazole Sodium 40 mg 01/15/25 21:00 01/15/25 22:10 Pantoprazole 40 Mg/10 Ml Vial IV 40 mg BID LAURA Administration Polyethylene Glycol/Electrolytes 4,000 ml 01/16/25 15:00 Peg 3350 (236 Gm/Btl) + Lytes 4,000 Ml Bottle PO 01/16/25 15:01 ONCE ONE Potassium Chloride 10 meq 01/17/25 09:00 Potassium Chloride Er 10 Meq Tab.Er.Prt PO SUWE LAURA Prednisone 5 mg 01/16/25 12:30 Prednisone 5 Mg Tab PO W/LUNCH [facility] Intake and Output 01/15/25 01/16/25 01/16/25 22:59 06:59 14:59 Intake Total 240 100 Balance 240 100 Intake: IV 240 100 Sodium Chloride 0.9% 1, 240 000 ml @ 60 mls/hr IV . [id number] [facility] Rx#:[id number] Other: # Voids 2 1 # Bowel Movements 1 0 Weight 109.7 kg 01/15/25 19:50 01/15/25 03:22
--- NOTE | 2025-01-16 12:49 | HP ---
HISTORY AND PHYSICAL CHIEF COMPLAINT: Recurrent syncope. HISTORY OF PRESENT ILLNESS: This 64-year-old woman with a past medical history of multiple medical problems, hypertension, hyperlipidemia, being followed Dr. Mckeon. The patient apparently was on a safari trip in [place]. The patient apparently passed out on the toilet. The patient came home after driving 4 hours and the patient again passed out and was taken to [facility], admitted for further evaluation and treatment. The patient was profusely sitting previously. The patient had large maroon bowel movements in the ER and hemoglobin was also found to be 10.5. Stool OB was positive. GI is planning endoscopes. There is no history of fever, rigors or chills at this time. PAST MEDICAL HISTORY: Reviewed. Hypertension, hyperlipidemia. Rest of the history is the chart is also reviewed. HOME MEDICATIONS: Reviewed, include potassium gluconate. Dose and rest of medications reviewed. ALLERGIES: Randle. FAMILY HISTORY: History of colon cancer. SOCIAL HISTORY: No history of smoking or alcohol. REVIEW OF SYSTEMS: A 14-point review of systems negative, except as mentioned earlier PHYSICAL EXAMINATION: VITAL SIGNS: Pulse is 110, blood pressure 111/61, and respirations 16. HEENT: Conjunctivae are pale. Oral mucosa moist. NECK: No JVD. CARDIOVASCULAR: S1 and S2. RESPIRATIONS: Breath sounds diminished at the bases. ABDOMEN: Soft, nontender. No mass palpable. LEGS: No edema. NERVOUS SYSTEM: No focal deficit. LABORATORY DATA: Reviewed. Hemoglobin is 10.5, WBC 17.75. ASSESSMENT: 1. Syncope, possibly secondary to dehydration. Rule out acute upper GI bleeding with acute blood loss anemia. 2. Increased WBC. 3. Hypertension. 4. Hyperlipidemia. 5. History of alopecia. 6. History of myasthenia gravis. 7. History of anxiety. 8. History of depression. RECOMMENDATIONS AND DISCUSSION: This 64-year-old woman presented with multiple complex medical issues. We will monitor the patient closely, continue the current medications and symptomatic treatment. Otherwise, we will monitor the blood pressure closely. Orthostatic vitals. Gastroenterology consultation. Proton pump inhibitors. Resume the home medications. Prognosis guarded because of multiple complex medical issues. Further recommendations to follow. MMODL / IJN: [id number] /
[2025-01-16] MEDS: PEG 3350 (236 GM/BTL) + LYTES 4,000 ML BOTTLE PO ONE (14:46)
[2025-01-16] MEDS: LACTATED RINGERS 1,000 ML IV SCH (20:22)
--- NOTE | 2025-01-16 22:20 | PN ---
PROGRESS NOTE DATE OF SERVICE: 01/16/2025 SUBJECTIVE: This 64-year-old woman was admitted with recurrent syncope, underwent upper endoscopy, showed no evidence of any acute abnormality. Colonoscopy being planned tomorrow. PHYSICAL EXAMINATION: VITAL SIGNS: Pulse is 93, blood pressure 93/60, respirations 20. HEENT: Conjunctivae normal. CARDIOVASCULAR: S1 and S2. RESPIRATORY: Breath sounds diminished at the bases. ABDOMEN: Soft. NERVOUS SYSTEM: Nonfocal. LABORATORY DATA: Hemoglobin 7.1. ASSESSMENT: 1. Syncope possibly secondary to dehydration. 2. GI bleed, rule out lower GI bleed with acute on chronic blood loss anemia. 3. Increased WBC. 4. Hypertension. 5. Hyperlipidemia. 6. Alopecia. 7. History of myasthenia gravis. 8. History of anxiety. 9. History of depression. RECOMMENDATIONS: Recommend to continue current management for lower GI bleeding. Otherwise, continue to monitor. I would also recommend 1 unit transfusion. Repeat labs. Guarded prognosis. Further recommendations to follow. MMODL / IJN: [id number] /
[2025-01-17] MEDS: FUROSEMIDE 10 MG/ML 2 ML VIAL IV ONE (02:18)
[2025-01-17 07:16] LABS: Basophils # (A) 0.01 10*3/uL (0.00-0.10); Basophils % (A) 0.1 %; Eosinophils # (A) 0.09 10*3/uL (0.04-0.35); Eosinophils % (A) 0.9 %; HCT 23.5 % (37.2-46.3); HGB 8.0 g/dL (12.0-15.0); Lymphocytes # (A) 2.82 10*3/uL (0.90-5.00); Lymphocytes % (A) 26.9 %; MCH 31.9 pg (27.0-32.0); MCHC 34.0 g/dL (32.0-37.0); MCV 93.6 fL (80.0-97.0); Monocytes # (A) 0.92 10*3/uL (0.20-1.00); Monocytes % (A) 8.8 %; Neutrophils # (A) 6.60 10*3/uL (1.80-7.70); Neutrophils % (A) 62.8 %; Platelet Count 146 10*3/uL (140-440); RBC 2.51 10*6/uL (4.10-5.20); RDW 15.7 % (11.5-14.5); WBC 10.49 10*3/uL (4.50-10.00)
[2025-01-17] MEDS: POTASSIUM CHLORIDE ER 10 MEQ TAB.ER.PRT PO SCH (08:05)
[2025-01-17] MEDS: ERGOCALCIFEROL 1,250 MCG (50,000 IU) CAPSULE PO SCH (08:06)
[2025-01-17 08:10] LABS: African American GFR (CKD) 89 (>60 ml/min/1.73 sqM); Anion Gap 5 mmol/L; Blood Urea Nitrogen 19 mg/dL (7-17); Calcium 8.1 mg/dL (8.4-10.2); Carbon Dioxide 25 mmol/L (22-30); Chloride 110 mmol/L (98-107); Glucose 95 mg/dL (74-99); Non-African American GFR(CKD) 77 (>60 ml/min/1.73 sqM); Potassium 3.2 mmol/L (3.5-5.1); Sodium 140 mmol/L (137-145)
[2025-01-17] MEDS ORDERED: Potassium Replacement Protocol 1 EACH MISC MISCELLANE PRN (09:18)
[2025-01-17] MEDS: POTASSIUM CHLORIDE ER 20 MEQ TAB.ER PO SCH (11:54)
--- NOTE | 2025-01-17 12:58 | P.PN ---
Subjective Progress Note Date: 01/17/25 Reason for Consult (text): Syncope History of present illness: This is a 64-year-old female patient with past medical history of hyperlipidemia, myasthenia gravis. Patient was previously seen by Dr. Chaney in 2016. 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 Patient also had a recent hospitalization at [facility] for myasthenia crisis requiring IV steroids as well as IVIG infusions. We have been asked to evaluate the patient for syncope. Patient apparently was in [place] at a safari and became dizzy and hot and the weather was very warm at the time. She went to the bathroom and fell backwards. EMS was called but she stated that she wanted to go home. She had Gatorade following that and subsequently had another dizzy spell and passed out while at home. Patient also found to have dark maroon stools and stool for occult blood was positive. She underwent EGD this morning which revealed no evidence of acute upper GI bleed and a normal-appearing esophagus, stomach and duodenum. She has been scheduled for colonoscopy for tomorrow. Patient presented with heart rate up to 129 and was hypotensive. She is status post IV fluids and IV Lasix 20 mg. Now blood pressure 94/58, heart rate 92, pulse ox 98% on 2 L nasal cannula. Patient was initially admitted to the ICU and is currently seen today on the cardiac stepdown unit. -EKG: Sinus rhythm with nonspecific ST changes -Chest x-ray: Chronic changes without acute process. -CT head: No acute intracranial pathology. -Carotid duplex: Right and left less than 50% stenosis of the carotid bifurcation. -CT a chest negative for PE. Scattered groundglass opacities throughout the lungs. Air-trapping versus atypical pneumonia. Hepatic steatosis. -Laboratory studies: Troponin negative x 3. proBNP 87. Procalcitonin 0.26. Stool for occult blood positive. Cepheid viral panel not detected. WBC max 22.9, hemoglobin 7.1, BUN 35 creatinine 0.86. -Home cardiac medications: Potassium gluconate 99 mg on Sundays and Wednesdays, simvastatin 20 mg at bedtime. - Echocardiogram performed 03/02/2024 revealed EF of 55 to 60%. 01/17/2025 Patient seen and examined. Patient is scheduled for colonoscopy today. She denies chest pain or chest pressure. Blood pressure 123/74, heart rate 99, pulse ox 96% on room air. Repeat blood work reveals hemoglobin of 8, WBC 10.4, BUN 19 creatinine 0.82, potassium 3.2. Cortisol level 6.9. Potassium has been replaced. Echocardiogram remains pending. Physical examination: Gen: This is a morbidly obese 64-year-old female in no acute distress. VS: reviewed HEENT: Head is atraumatic, normocephalic. Pupils equal, round. Sclerae is anicte nikhil. NECK: Supple. No JVD. LUNGS: Clear to auscultation. No wheezes or rhonchi. No intercostal re tractions. HEART: Regular rate and rhythm. No murmur. ABDOMEN: Soft No tenderness. EXTREMITIES: No pedal edema. No calf tenderness. NEUROLOGICAL: Patient is awake, alert and oriented x3. Assessment: Syncopal episode x 2 most likely secondary to anemia and acute GI bleed, rule out cardiac arrhythmia Acute GI bleed Acute blood loss anemia status post 1 unit of packed RBCs Acute leukocytosis Recent hospitalization for myasthenia crisis status post IV steroids and IVIG infusions History of myasthenia gravis Hyperlipidemia Morbid obesity with BMI of 40 Plan: Continue patient's home cardiac medications Obtain 2-D echocardiogram and Doppler study to assess cardiac structure and function Continue telemetry monitoring Patient is scheduled for colonoscopy today Further recommendations to follow based upon clinical course Nurse practitioner note has been reviewed, I agree with documented findings and plan of care. Patient was seen and examined. Objective - Vital Signs Vital signs: Vital Signs Temp 98.2 F 01/17/25 04:00 Pulse 99 01/17/25 08:00 Resp 16 01/17/25 08:00 BP 123/74 01/17/25 08:00 Pulse Ox 96 01/17/25 08:00 FiO2 Intake & Output 01/16/25 01/17/25 01/17/25 18:59 06:59 18:59 Intake Total 340 310 Balance 340 310 Weight 109.7 kg Intake: IV 100 Oral 240 Blood Product 310 Rc As-1 Unit 310 [id number] Other: Voiding Method Toilet Bedside Commode # Voids 1 # Bowel Movements 3 - Labs CBC & Chem 7: 01/17/25 06:08 01/17/25 06:08 Labs: Abnormal Lab Results - Last 24 Hours (Table) 01/15/25 01/17/25 01/17/25 Range/Units 07:22 06:08 06:08 WBC 10.49 H (4.50-10.00) 10*3/uL RBC 2.51 L (4.10-5.20) 10*6/uL Hgb 8.0 L (12.0-15.0) g/dL Hct 23.5 L (37.2-46.3) % Immature Gran # 0.05 H (0.00-0.04) 10*3/uL Potassium 3.2 L (3.5-5.1) mmol/L Chloride 110 H (98-107) mmol/L BUN 19 H (7-17) mg/dL Calcium 8.1 L (8.4-10.2) mg/dL Crossmatch See Detail
[2025-01-17] MEDS: IV FLUID CONTINUATION 900 ML IV ONE (15:54)
[2025-01-17] MEDS ORDERED: PROPOFOL 10 MG/ML 20 ML VIAL IV ONE (15:56)
[2025-01-17] MEDS ORDERED: LIDOCAINE 1% INJ 10MG/ML (20 ML MDV) ONE (15:56)
--- NOTE | 2025-01-17 16:18 | P.PCN ---
Date of Procedure: 01/17/25 Procedure(s) Performed: BRIEF HISTORY: Patient is a 64-year-old pleasant white female admitted to hospital with syncope following which she had an episode of multiple maroon- colored stools. Because of clinical suspicion for acute upper GI bleed she underwent an upper endoscopy yesterday that was negative. She is scheduled for colonoscopy to evaluate further. Drop in hemoglobin from 10 to 7 g/dL requiring 2 unit of PRBC transfusion. PROCEDURE PERFORMED: Colonoscopy with biopsy. PREOPERATIVE DIAGNOSIS: Acute GI bleed. IV sedation per Anesthesia. PROCEDURE: After informed consent was obtained, the patient, was brought into the endoscopy unit. IV sedation was administered by Anesthesia under continuous monitoring. Digital rectal examination was normal. Initially the Olympus CF-160 flexible video colonoscope was then inserted in the rectum, gradually advanced into the cecum without any difficulty. Careful examination was performed as the scope was gradually being withdrawn. Ileocecal valve and the appendiceal orifice were visualized and appeared normal. Prep was excellent. No active bleeding noted. Mucosa of the cecum, ascending colon, transverse colon, descending colon, sigmoid colon, and rectum appeared normal. Scattered sigmoid diverticulosis seen. In the proximal rectum there was a 4 mm superficial rectal ulcer identified with no active bleeding status post biopsy. Moderate sigmoid diverticulosis. Retroflexion was performed in the rectum and no lesions were seen. The patient tolerated the procedure well. IMPRESSION: 4 mm superficial proximal rectal ulcer status post biopsy Moderate sigmoid diverticulosis No evidence of active bleeding seen RECOMMENDATIONS: Findings of this examination were discussed with the patient as well as her family.. She was advised to follow the biopsy results. Most likely the recent episode of bleeding was diverticular in nature which has spontaneously resolved. Advance diet as tolerated. Monitor CBC tomorrow morning and if she is stable she can be discharged home
[2025-01-17] MEDS: MAGNESIUM SULFATE-D5W PMX 1 GM in DEXTROSE/WATER 1 100ML.BAG IVPB SCH (17:15)
[2025-01-18] MEDS: FUROSEMIDE 10 MG/ML 2 ML VIAL IV ONE (01:50)
--- NOTE | 2025-01-18 05:03 | PN ---
PROGRESS NOTE DATE OF SERVICE: 01/17/2025 SUBJECTIVE: This is a 64-year-old woman admitted with syncope secondary to dehydration, also had possible GI bleed, also the hemoglobin is found to be 8. Multiple consultants are following the patient closely. OBJECTIVE: VITAL SIGNS: Pulse is 101, blood pressure 100/69, respirations 20. CHEST: Few scattered rhonchi. ABDOMEN: Soft. NERVOUS SYSTEM: Nonfocal. LABORATORY DATA: Reviewed. ASSESSMENT: 1. Syncope, possibly secondary to dehydration and gastrointestinal bleed. 2. Bswwx-ad-acdzyck blood loss anemia. 3. Increased WBC. 4. Hypertension. 5. Hyperlipidemia. 6. History of myasthenia gravis. 7. History of anxiety. 8. History of depression. RECOMMENDATIONS AND DISCUSSION: Recommend to continue current management and symptomatic treatment. Otherwise, we will replace potassium. Cortisol level is lower limit of normal. Further recommendations to follow. MMODL / IJN: [id number] /
[2025-01-18 08:03] LABS: Basophils # (A) 0.01 10*3/uL (0.00-0.10); Basophils % (A) 0.1 %; Eosinophils # (A) 0.11 10*3/uL (0.04-0.35); Eosinophils % (A) 1.2 %; HCT 28.8 % (37.2-46.3); Lymphocytes # (A) 3.21 10*3/uL (0.90-5.00); Lymphocytes % (A) 34.1 %; MCH 32.0 pg (27.0-32.0); MCHC 34.0 g/dL (32.0-37.0); MCV 94.1 fL (80.0-97.0); Monocytes # (A) 0.87 10*3/uL (0.20-1.00); Monocytes % (A) 9.2 %; Neutrophils # (A) 5.17 10*3/uL (1.80-7.70); Neutrophils % (A) 55.0 %; Platelet Count 157 10*3/uL (140-440); RBC 3.06 10*6/uL (4.10-5.20); RDW 15.8 % (11.5-14.5); WBC 9.41 10*3/uL (4.50-10.00)
[2025-01-18 08:16] LABS: African American GFR (CKD) 77 (>60 ml/min/1.73 sqM); Anion Gap 4 mmol/L; Blood Urea Nitrogen 14 mg/dL (7-17); Calcium 8.5 mg/dL (8.4-10.2); Carbon Dioxide 31 mmol/L (22-30); Chloride 107 mmol/L (98-107); Glucose 90 mg/dL (74-99); Non-African American GFR(CKD) 67 (>60 ml/min/1.73 sqM); Potassium 3.6 mmol/L (3.5-5.1); Sodium 142 mmol/L (137-145)
[2025-01-18 08:24] LABS: HGB 9.8 g/dL (12.0-15.0)
--- NOTE | 2025-01-18 10:01 | CA ---
Transthoracic Echo Report Name: Carla Patrick Age: 64 Gender: F : 1960 Exam Date: 01/18/2025 08:21 Exam Location: [facility] Ht (in): 65 Wt (lb): 240 Ordering Physician: Melinda Moore Attending/Referring Phys: Battery Mechanic Olive Malik RDCS Procedure CPT: Indications: Syncope Cardiac Hx: Technical Quality: Good Contrast 1: Total Dose (mL): Contrast 2: Total Dose (mL): MEASUREMENTS (Male / Female) Normal Values 2D ECHO LV Diastolic Diameter PLAX 4.1 cm 4.2 - 5.9 / 3.9 - 5.3 cm LV Systolic Diameter PLAX 2.7 cm IVS Diastolic Thickness 1.0 cm 0.6 - 1.0 / 0.6 - 0.9 cm LVPW Diastolic Thickness 1.1 cm 0.6 - 1.0 / 0.6 - 0.9 cm LV Relative Wall Thickness 0.5 RV Internal Dim ED PLAX 2.6 cm LA Systolic Diameter LX 2.9 cm 3.0 - 4.0 / 2.7 - 3.8 cm LV Diastolic Volume MOD 4C 69.7 cm??? LV Systolic Volume MOD 4C 25.5 cm??? LV Ejection Fraction MOD 4C 63.4 % LV Cardiac Index MOD 4C 1814.8 cm???/min???m??? LV Diastolic Length 4C 8.2 cm LV Systolic Length 4C 6.9 cm LV Diastolic Volume MOD 2C 59.8 cm??? LV Systolic Volume MOD 2C 28.4 cm??? LV Ejection Fraction MOD 2C 52.5 % LV Cardiac Index MOD 2C 1289.1 cm???/min???m??? LV Diastolic Length 2C 8.0 cm LV Systolic Length 2C 6.5 cm LA Volume 42.2 cm??? 18 - 58 / 22 - 52 cm??? LA Volume Index 18.5 cm???/m??? 16 - 28 cm???/m??? M-MODE Aortic Root Diameter MM 2.9 cm AV Cusp Separation MM 2.1 cm DOPPLER AV Peak Velocity 177.0 cm/s AV Peak Gradient 12.5 mmHg MV Area PHT 4.0 cm??? Mitral E Point Velocity 115.2 cm/s Mitral A Point Velocity 98.9 cm/s Mitral E to A Ratio 1.2 MV Deceleration Time 189.4 ms TR Peak Velocity 218.7 cm/s TR Peak Gradient 19.1 mmHg Right Ventricular Systolic Press 24.1 mmHg FINDINGS Left Ventricle Left ventricular ejection fraction is estimated at 55-60 %. Left ventricular cavity size normal. Normal left ventricular systolic function with no obvious regional wall motion abnormalities. Right Ventricle Normal right ventricular size. Right ventricular systolic pressure within normal limits. Right Atrium Normal right atrial size. No right atrial thrombus or mass seen. Left Atrium Normal left atrial size. No left atrial thrombus or mass present. Mitral Valve Structurally normal mitral valve. No mitral stenosis, or prolapse.mild mitral regurgitation. Aortic Valve Trileaflet aortic valve. No aortic valve stenosis or regurgitation. Tricuspid Valve Structurally normal tricuspid valve. Mild tricuspid regurgitation. Pulmonic Valve Structurally normal pulmonic valve. No pulmonic regurgitation. Pericardium No pericardial effusion.echo free space anterior to the right ventricle likely represents a fat pad. Aorta Normal size aortic root and proximal ascending aorta. CONCLUSIONS 1. Normal left ventricular size and systolic function 2. Mild mitral and tricuspid regurgitation Previewed by: Dr. Saman Chavez MD (Electronically Signed) Final Date: 18 January 2025 10:00
--- NOTE | 2025-01-18 10:47 | P.PN ---
Subjective Progress Note Date: 01/18/25 Reason for Consult (text): Syncope History of present illness: This is a 64-year-old female patient with past medical history of hyperlipidemia, myasthenia gravis. Patient was previously seen by Dr. Chaney in 2016. 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 Patient also had a recent hospitalization at [facility] for myasthenia crisis requiring IV steroids as well as IVIG infusions. We have been asked to evaluate the patient for syncope. Patient apparently was in [place] at a safari and became dizzy and hot and the weather was very warm at the time. She went to the bathroom and fell backwards. EMS was called but she stated that she wanted to go home. She had Gatorade following that and subsequently had another dizzy spell and passed out while at home. Patient also found to have dark maroon stools and stool for occult blood was positive. She underwent EGD this morning which revealed no evidence of acute upper GI bleed and a normal-appearing esophagus, stomach and duodenum. She has been scheduled for colonoscopy for tomorrow. Patient presented with heart rate up to 129 and was hypotensive. She is status post IV fluids and IV Lasix 20 mg. Now blood pressure 94/58, heart rate 92, pulse ox 98% on 2 L nasal cannula. Patient was initially admitted to the ICU and is currently seen today on the cardiac stepdown unit. -EKG: Sinus rhythm with nonspecific ST changes -Chest x-ray: Chronic changes without acute process. -CT head: No acute intracranial pathology. -Carotid duplex: Right and left less than 50% stenosis of the carotid bifurcation. -CT a chest negative for PE. Scattered groundglass opacities throughout the lungs. Air-trapping versus atypical pneumonia. Hepatic steatosis. -Laboratory studies: Troponin negative x 3. proBNP 87. Procalcitonin 0.26. Stool for occult blood positive. Cepheid viral panel not detected. WBC max 22.9, hemoglobin 7.1, BUN 35 creatinine 0.86. -Home cardiac medications: Potassium gluconate 99 mg on Sundays and Wednesdays, simvastatin 20 mg at bedtime. - Echocardiogram performed 03/02/2024 revealed EF of 55 to 60%. 01/17/2025 Patient seen and examined. Patient is scheduled for colonoscopy today. She denies chest pain or chest pressure. Blood pressure 123/74, heart rate 99, pulse ox 96% on room air. Repeat blood work reveals hemoglobin of 8, WBC 10.4, BUN 19 creatinine 0.82, potassium 3.2. Cortisol level 6.9. Potassium has been replaced. Echocardiogram remains pending. 01/18/2025 Patient seen and examined. Patient states that she is feeling much better t sony. She has had a total of 3 units of packed RBCs. She underwent colonoscopy yesterday that found a rectal ulcer. Patient is not normally on anticoagulation. Echocardiogram reveals EF 55 to 60%, mild mitral and tricuspid regurgitation. Blood pressure 107/72, heart rate 88, pulse ox 95% on room air. Repeat hemoglobin 9.8, BUN 14 creatinine 0.92. No cardiac arrhythmias have been identified during her hospitalization. Most likely syncopal episodes were due to severe anemia. Physical examination: Gen: This is a morbidly obese 64-year-old female in no acute distress. VS: reviewed HEENT: Head is atraumatic, normocephalic. Pupils equal, round. Sclerae is anicteric. NECK: Supple. No JVD. LUNGS: Clear to auscultation. No wheezes or rhonchi. No intercostal retractions. HEART: Regular rate and rhythm. No murmur. ABDOMEN: Soft No tenderness. EXTREMITIES: No pedal edema. No calf tenderness. NEUROLOGICAL: Patient is awake, alert and oriented x3. Assessment: Syncopal episode x 2 most likely secondary to anemia and acute GI bleed Acute GI bleed Acute blood loss anemia status post 3 units of packed RBCs Acute leukocytosis Recent hospitalization for myasthenia crisis status post IV steroids and IVIG infusions History of myasthenia gravis Hyperlipidemia Morbid obesity with BMI of 40 Plan: Continue patient's home cardiac medications Patient is cleared for discharge from cardiology perspective. Patient will follow-up with Dr. Chaney as requested in 1 to 2 weeks. Cardiology will sign off this case and follow on an as-needed basis. Please reconsult for any new concerns. Nurse practitioner note has been reviewed, I agree with documented findings and plan of care. Patient was seen and examined. Objective - Vital Signs Vital signs: Vital Signs Temp 97.9 F 01/18/25 04:00 Pulse 91 01/18/25 04:00 Resp 14 01/18/25 04:00 BP 113/73 01/18/25 04:00 Pulse Ox 94 L 01/18/25 04:00 FiO2 Intake & Output 01/17/25 01/18/25 01/18/25 18:59 06:59 18:59 Intake Total 200 401 Balance 200 401 Weight 111 kg Intake: IV 200 Oral 120 Blood Product 281 Rc Pheresis 2 As3 Unit 281 [id number] Other: Voiding Method Toilet Toilet Bedside Commode Bedside Commode # Voids 1 # Bowel Movements 8 4 - Labs CBC & Chem 7: 01/18/25 07:22 01/18/25 07:22 Labs: Abnormal Lab Results - Last 24 Hours (Table) 01/15/25 01/17/25 Range/Units 07:22 06:08 Potassium 3.2 L (3.5-5.1) mmol/L Chloride 110 H (98-107) mmol/L BUN 19 H (7-17) mg/dL Calcium 8.1 L (8.4-10.2) mg/dL Crossmatch See Detail
[2025-01-18 12:36] VITALS: BP 110/73; PULSE 92; RESP 18; TEMP 98
--- NOTE | 2025-01-18 13:30 | P.PN ---
Subjective Progress Note Date: 01/18/25 Principal diagnosis: GI bleed This is a pleasant 64-year-old female with a medical history including GERD, morbid obesity status post Niesen fundoplication, hypertension, alopecia, psoriasis, myasthenia gravis who takes prednisone 5 mg daily had reported to the hospital early this morning around 4 AM after having couple episodes of syncope and collapse. Apparently patient had been traveling yesterday in [place] and had a syncopal episode and had fallen. Reportedly lost consciousness. Also lost continence of her bowels. She did arrive home yesterday similar episode occurre d where she became lightheaded and lost consciousness. She came into the emergency department for further evaluation. Initially she had stated that she was not having any vomiting or diarrhea, no abdominal pain. She was having some mild nausea however this morning she had large dark maroon-colored stool. She was given 1 unit of blood for hemoglobin at 10.2 for symptomatic anemia and GI bleed. She denies any anticoagulation, no NSAID use, takes the prednisone daily for her myasthenia gravis. Does confirm heartburn no previous history of peptic ulcer disease and no history of previous GI bleed. Last upper endoscopy was with Dr. Hayes in March 2024 with findings of LA grade C erosive esophagitis she had a colonoscopy in April [address] Hayes with findings of diverticulosis and internal hemorrhoids nonbleeding. 01/18/2025 Patient seen and examined today as a follow-up. She has undergone upper endoscopy on 01/16/2025 without any evidence of acute upper GI bleed. Normal- appearing esophagus stomach and duodenum. Therefore yesterday she underwent colonoscopy with findings of 4 mm superficial proximal rectal ulcer s/p biopsy, moderate sigmoid diverticulosis but no evidence of any active bleeding. Most likely episode of bleeding was diverticular in nature which has spontaneously resolved. Patient's hemoglobin improved from 8.0-9.8. She denies any abdominal pain nausea or vomiting and no further rectal bleeding. Objective - Vital Signs Vital signs: Vital Signs Temp 97.7 F 01/18/25 08:58 Pulse 88 01/18/25 08:58 Resp 16 01/18/25 08:58 BP 107/72 01/18/25 08:58 Pulse Ox 95 01/18/25 08:58 FiO2 Intake & Output 01/17/25 01/18/2525 18:59 06:59 18:59 Intake Total 200 401 10 Balance 200 401 10 Weight 111 kg Intake: IV 200 10 Invasive Line 2 10 Oral 120 Blood Product 281 Rc Pheresis 2 As3 Unit 281 [id number] Other: Voiding Method Toilet Toilet Bedside Commode Bedside Commode # Voids 1 1 # Bowel Movements 8 4 0 - Exam General appearance: The patient is alert, oriented, appears in no acute distress. Obese. HET: Head is normocephalic and atraumatic. Conjunctiva pink. Sclera anicteric. Neck: Supple without lymphadenopathy. Abdomen: Soft, nontender, nondistended. Extremities: Normal skin color and turgor. No pedal edema Skin: No rashes, no jaundice Neurological: No focal deficits. Alert and oriented. - Labs CBC & Chem 7: 01/18/25 07:22 01/18/25 07:22 Labs: Abnormal Lab Results - Last 24 Hours (Table) 01/15/25 01/18/25 01/18/25 Range/Units 07:22 07:22 07:22 RBC 3.06 L (4.10-5.20) 10*6/uL Hgb 9.8 L D (12.0-15.0) g/dL Hct 28.8 L (37.2-46.3) % Carbon Dioxide 31 H (22-30) mmol/L Crossmatch See Detail Assessment and Plan (1) GI bleed Narrative/Plan: 64-year-old female presenting for syncope and collapse with loss of consciousness unclear etiology. Patient presented initially without any signs or symptoms of GI bleed. During her time in the emergency department she has had 1-2 large maroon bowel movements and was noted to be anemic with a hemoglobin of 10.2 and elevated BUN which can be seen in setting of upper GI bleed. Patient does take prednisone daily, no other NSAIDs. No history of peptic ulcer disease but does have a history of GERD with prior Niesen fundoplication. Patient status post upper endoscopy without any evidence of GI bleed. Colonoscopy with rectal ulcer status post biopsy and diverticulosis. Likely bleeding was diverticular in nature with spontaneous resolution. Current Visit: Yes Status: Acute Code(s): K92.2 - GASTROINTESTINAL HEMORRHAGE, UNSPECIFIED SNOMED Code(s): 20253041 (2) Symptomatic anemia Current Visit: Yes Status: Acute Code(s): D64.9 - ANEMIA, UNSPECIFIED SNOMED Code(s): 288073683 (3) Syncope Current Visit: Yes Status: Acute Code(s): R55 - SYNCOPE AND COLLAPSE SNOMED Code(s): 071898913 Plan: 1. Continue symptomatic and supportive care 2. Diet as tolerated 3. Protonix 40 mg twice daily 4. Patient is status post upper endoscopy and colonoscopy 5. Recommend outpatient follow-up for biopsy result Thank you for this consultation, patient is cleared from gastroenterology. We will sign off at this time. Dr. Samantha Faulkner I agree with the dictator's note, documented as a scribe by Pnia PETE.
--- NOTE | 2025-01-21 12:18 | P.DS ---
Providers Date of admission: 01/15/25 07:09 Expected date of discharge: 01/18/25 Attending physician: Albert Rae MD Consults: 01/15/25 07:08 Consult Physician Urgent Consulting Provider: Becca Faulkner Consult Reason/Comments: upper GI bleed? Do you want consulting provider notified?: Yes, Notify in am 01/15/25 13:36 Consult Physician Routine Consulting Provider: Jairo Posey Consult Reason/Comments: abnormal ct Do you want consulting provider notified?: Yes 01/15/25 16:36 Consult Physician Urgent Consulting Provider: Naveed Chaney Consult Reason/Comments: syncope Do you want consulting provider notified?: Yes Primary care physician: Piedad Camp Hospital Course: Final diagnosis Syncope, secondary to dehydration likely as well as anemia Acute GI bleed with acute on chronic blood loss anemia, noted to have a rectal ulcer on colonoscopy Increased white blood count, likely reactive Hypertension Hyperlipidemia History of myasthenia gravis History of anxiety and depression Morbid obesity with a BMI of 40.7 GI prophylaxis DVT prophylaxis Full code Discharge disposition Patient is being discharged in a stable condition with guarded prognosis to home. Patient will follow-up with Dr. Camp in the outpatient setting upon discharge. Patient is to continue with current medications and outpatient follow-up with GI as scheduled. Total time taken is greater than 35 minutes. Hospital course This is a 64-year-old female who was recently admitted with syncopal episode and concerns of GI bleed with acute on chronic blood loss anemia. Patient's hem oglobin was noted to be low and is status post transfusion with hemoglobin above 8. Patient did undergo EGD along with colonoscopy with no active bleeding noted other than a rectal ulcer and biopsies were obtained and pending at this time. Patient reports to feeling improved has had no further syncopal episodes and hemoglobin is stable being cleared by GI. Patient will follow-up with GI in the outpatient setting as well as primary care provider. Please refer to consultation notes for further HPI. Currently no reports of chest pain, shortness of breath, or palpitations. Patient is afebrile. No reports of nausea or vomiting and patient is tolerating diet. Patient will be discharged home today. Guarded prognosis. Physical exam: Gen: This is a 64-year-old female who is awake, alert and oriented x 3, well- developed, elderly appearing, chronically ill-appearing, morbidly obese HEENT: Head is atraumatic, normocephalic. Pupils equal, round. Sclerae is anicteric. NECK: Supple. No JVD. No lymphadenopathy. No thyromegaly. LUNGS: Diminished breath sounds bilaterally otherwise clear to auscultation. No wheezes or rhonchi. No intercostal retractions. HEART: S1, S2 are muffled ABDOMEN: Soft. Morbidly obese bowel sounds are present. No masses. No tenderness. EXTREMITIES: No pedal edema. No calf tenderness. NEUROLOGICAL: Patient is awake, alert and oriented x3. Cranial nerves 2 through 12 are grossly intact. Please refer to medication reconciliation sheet for a list of medications. The impression and plan of care has been dictated by Melinda Moore, Nurse Pr actitioner as directed. Dr. Anders MD I have performed a history and examination and MDM of this patient, discussed the same with the dictator, and agree with the dictator's assessment and plan as written ,documented as a scribe. Based on total visit time, I have performed more than 50% of the visit. Patient Condition at Discharge: Fair Plan - Discharge Summary New Discharge Prescriptions: New Acetaminophen Tab [Tylenol] 650 mg PO Q6HR PRN tab PRN Reason: Mild Pain Or Fever > 100.5 Continue Simvastatin [Zocor] 20 mg PO HS Ergocalciferol [Vitamin D2 (1250 Mcg = 33317 Iu)] 1,250 mcg PO SUWE predniSONE 5 mg PO W/LUNCH Potassium Gluconate 99 mg PO SUWE Discharge Medication List Simvastatin [Zocor] 20 mg PO HS 03/16/14 [History] Ergocalciferol [Vitamin D2 (1250 Mcg = 85381 Iu)] 1,250 mcg PO SUWE 08/10/24 [History] predniSONE 5 mg PO W/LUNCH 08/10/24 [History] Potassium Gluconate 99 mg PO SUWE 01/15/25 [History] Acetaminophen Tab [Tylenol] 650 mg PO Q6HR PRN tab 01/18/25 [Rx] Follow up Appointment(s)/Referral(s): Naveed Chaney MD [STAFF PHYSICIAN] - 1 Week (Office will call you with follow up appointment. ) Becca Faulkner MD [STAFF PHYSICIAN] - 1 Week (Please call and schedule your follow up appointment. ) Piedad Camp DO [Primary Care Provider] - 01/22/25 1:45 pm Patient Instructions/Handouts: Diverticulosis (DC), Syncope (DC), Anemia (DC) Activity/Diet/Wound Care/Special Instructions: Activity limited until follow-up Follow-up with primary care provider on discharge Follow-up with GI outpatient Continue taking medications as prescribed Discharge Disposition: HOME SELF-CARE
== END 2025-01-18 15:16 | disposition home or self-care (01) | DRG 378 ==
LOC: EC 03:14 → 3SCARD 07:08 → OBSVTOIN 07:09 → 2SICU 11:12 → 3SCARD 01-16 05:31
PROVIDERS: ADMIT Internal Medicine; ATTEND Internal Medicine
PROC: 30233N1 Transfusion of Nonautologous Red Blood Cells into Peripheral Vein, Percutaneous Approach (ICD-10-PCS; 2025-01-15)
PROC: 0DJ08ZZ Inspection of Upper Intestinal Tract, Via Natural or Artificial Opening Endoscopic (ICD-10-PCS; principal; 2025-01-16 07:00)
PROC: 0DBP8ZX Excision of Rectum, Via Natural or Artificial Opening Endoscopic, Diagnostic (ICD-10-PCS; 2025-01-17)
DX: K57.31 Diverticulosis of large intestine without perforation or abscess with bleeding (principal); D62 Acute posthemorrhagic anemia; E66.01 Morbid (severe) obesity due to excess calories; I10 Essential (primary) hypertension; Z11.52 Encounter for screening for COVID-19; F32.A Depression, unspecified; I65.29 Occlusion and stenosis of unspecified carotid artery; K76.0 Fatty (change of) liver, not elsewhere classified; Z68.41 Body mass index [BMI] 40.0-44.9, adult; K62.6 Ulcer of anus and rectum; G70.00 Myasthenia gravis without (acute) exacerbation; G70.9 Myoneural disorder, unspecified; D72.829 Elevated white blood cell count, unspecified; J10.1 Influenza due to other identified influenza virus with other respiratory manifestations; E78.5 Hyperlipidemia, unspecified; L65.9 Nonscarring hair loss, unspecified; F41.9 Anxiety disorder, unspecified; E86.0 Dehydration; K21.00 Gastro-esophageal reflux disease with esophagitis, without bleeding; K29.70 Gastritis, unspecified, without bleeding; K64.8 Other hemorrhoids; W19.XXXA Unspecified fall, initial encounter; Z79.899 Other long term (current) drug therapy; Z86.16 Personal history of COVID-19; Z87.19 Personal history of other diseases of the digestive system; Z90.710 Acquired absence of both cervix and uterus; Z91.018 Allergy to other foods; Z91.048 Other nonmedicinal substance allergy status
CPT/HCPCS: 36415; 36430; 43235; 45380; 70450; 71045; 71275; 80048; 80053; 81003; 82272; 82533; 82550; 83735; 83880; 84132; 84145; 84484; 85025; 85027; 85610; 85652; 85730; 86140; 86850; 86900; 86901; 86920; 87636; 88305; 93005; 93306; 93880; 96361; 96374; 96375; 96376; 99285